=== PATIENT | male | born 1995 | race Caucasian/White ===

== ENCOUNTER 2016-12-21 19:26 | Emergency (ER) | payer OTHER ==
[2016-12-21] MEDS ORDERED: Ondansetron HCl/PF 4 MG/2 ML Vial ONE (19:43)
[2016-12-21 19:51] LABS: #Basophils 0.1 thou/uL (0.0-0.2); #Eosinphils 0.1 thou/uL (0.0-0.7); #Lymphocytes 3.4 thou/uL (1.20-3.40); #Neutrophils 11.8 thou/uL (1.40-6.50); %Basophils 0.8 % (0.0-1.0); %Eosinophils 0.6 % (0.0-10.0); %Lymphocytes 20.6 % (21.0-51.0); %Monocytes 5.8 % (0.0-10.0); Hematocrit 48.6 % (42.0-52.0); Red Blood Cell (RBC) Count 5.38 mill/uL (4.70-6.10); White Blood Cell (WBC) Count 16.3 thou/uL (4.8-10.8)
[2016-12-21 20:18] LABS: ALT (SGPT) 21 U/L (8-55); AST (SGOT) 27 U/L (5-34); Alkaline Phosphatase 108 U/L (40-150); Anion Gap 13 mmol/L (10-20); BUN (Urea Nitrogen) 13 mg/dL (8.9-20.6); Bilirubin, Total 0.5 mg/dL (0.2-1.2); CK (CPK) 50 U/L (30-200); Calc. Creatinine Clearance 0 mL/min (70-130); Calcium 8.7 mg/dL (7.8-10.44); Carbon Dioxide 16 mmol/L (22-29); Chloride 111 mmol/L (98-107); Estimated GFR-MDRD 84; Globulin 3.6 g/dL (2.4-3.5); Lipase 20 U/L (8-78); Protein, Total 7.6 g/dL (6.0-8.3)
--- NOTE | 2016-12-21 21:11 | CT ---
NONCONTRAST CT ABDOMEN AND PELVIS 12/21/16 HISTORY: Left flank pain with nausea and vomiting. Onset of symptoms for 45 minutes prior to arrival. History of renal stones. COMPARISON: 10/16/16 FINDINGS: There are nonobstructing bilateral renal calculi. The largest calculus in the inferior pole left kid chris measures 14 mm with largest calculus in the inferior pole right kidney measures approximately 6 mm. There are two separate calculi seen in the proximal left ureter each measuring approximately 5 m m. This does result in mild left hydronephrosis. No additional ureteral calculus is seen. The urinary bladder is incompletely distended. However, the previously noted left UVJ calculus as we ll as urinary bladder calculi seen on the prior study are no longer seen, likely related to interval passage or treatment of these calculi. The heart is mildly enlarged. The lung bases, liver, spleen, pancreas, and bilateral adrenal glands demonstrate a grossly normal n onenhanced Ct appearance. There is a moderate amount of retained fecal material seen within the sigmoid colon and in the rectu m. No pericolonic inflammatory changes are present. The appendix is not visualized, but there are no secondary signs to suggest appendicitis. There has been no other interval change from prior exam. IMPRESSION: 1. Partially obstructing left ureteral calculi with two separate calculi present, each measurin g approximately 5 mm. 2. Nonobstructing bilateral renal calculi. 3. Resolution of the left UVJ calculus and urinary bladder calculi noted on the prior exam. 4. Moderate amount of retained fecal material in the sigmoid colon. POS: [facility]
[2016-12-21 21:45] LABS: Bilirubin Negative (Negative); Blood, Urine Large (Negative); Glucose, Urine (Dipstick) Negative (Negative); Ketone, Urine Negative (Negative); Nitrite Negative (Negative); Protein, Urine (Dipstick) Trace mg/dL (Neg-Trace); Urobilinogen 0.2 mg/dL (0.2-1.0)
[2016-12-21 22:01] LABS: Bacteria/HPF None Seen HPF (None Seen); Hyaline Casts/LPF 0-3 HYALINE CAST LPF (0-3 Hyaline); RBC/HPF GREATER THAN 50-TNTC HPF (0-3); Squamous Epithelial 0-3 HPF (0-3); WBC/HPF 0-3 HPF (0-3)
--- NOTE | 2016-12-21 22:41 | RAD ---
AP ABDOMINAL RADIOGRAPH 12/21/16 HISTORY: Abdominal pain. COMPARISON: 05/14/16 FINDINGS: Calcifications are faintly visualized overlying the renal shadows bilaterally suggesting bilateral r enal calculi noted on recent CT scan examination. There are calcifications also seen adjacent to the L3 vertebral body on the left which likely represent the ureteral calculi seen on the recent CT sca n abdomen. Bowel gas pattern is nonspecific. Osseous structures are intact. IMPRESSION: 1. Bilateral nephrolithiasis. 2. Faint calcifications adjacent to the left aspect of the L3 vertebral body which likely repre sent the ureteral calculi seen on CT examination performed just prior to this exam. POS: [facility]
== END 2016-12-21 22:31 | disposition home or self-care (01) ==
LOC: ERS 19:26
DX: N13.2 Hydronephrosis with renal and ureteral calculous obstruction (principal); E86.0 Dehydration; I10 Essential (primary) hypertension; F31.9 Bipolar disorder, unspecified; F42.9 Obsessive-compulsive disorder, unspecified; Z79.891 Long term (current) use of opiate analgesic; Z79.899 Other long term (current) drug therapy
CPT/HCPCS: 51701; 74000; 74176; 80053; 81003; 81015; 82550; 83690; 85025; 96361; 96374; 96375; J2270; J2405

== ENCOUNTER 2016-12-22 09:45 | Day surgery (SDC) | payer OTHER ==
[2016-12-22] MEDS ORDERED: Ondansetron HCl/PF 4 MG/2 ML Vial ONE ×2 (10:26→15:41)
[2016-12-22 10:37] LABS: Hematocrit 47.5 % (42.0-52.0); Mean Platelet Volume 6.8 fL (7.4-10.4); Red Blood Cell (RBC) Count 5.26 mill/uL (4.70-6.10); White Blood Cell (WBC) Count 21.4 thou/uL (4.8-10.8)
[2016-12-22 10:53] LABS: Anion Gap 12 mmol/L (10-20); BUN (Urea Nitrogen) 13 mg/dL (8.9-20.6); Calc. Creatinine Clearance 0 mL/min (70-130); Calcium 8.6 mg/dL (7.8-10.44); Carbon Dioxide 15 mmol/L (22-29); Chloride 111 mmol/L (98-107); Estimated GFR-MDRD 63
[2016-12-22 10:58] LABS: Band 4 % (5-11); Neutrophil 89 % (42-75)
[2016-12-22] MEDS ORDERED: Fentanyl 100 MCG/2 ML VIAL ONE (14:39)
[2016-12-22] MEDS ORDERED: Midazolam HCl 2 mg/2 ml Vial ONE (14:39)
[2016-12-22] MEDS ORDERED: Iothalamate Meglumine 60% 50 ML VIAL FS ONE (14:41)
[2016-12-22] MEDS ORDERED: Lidocaine 1% PF 5 ML VIAL ONE (15:41)
[2016-12-22] MEDS ORDERED: Propofol 200 MG/20 ML VIAL ONE (15:41)
[2016-12-22] MEDS ORDERED: Succinylcholine Chloride 20 MG/ML 10 ml SYRINGE FS ONE (15:41)
--- NOTE | 2016-12-22 17:33 | RAD ---
RETROGRADE IVP: 12/22/16 COMPARISON: 10/27/[address] of the abdomen/pelvis 12/21/16. HISTORY: Bilateral nephrolithiasis. FINDINGS/IMPRESSION: Multiple limited intraoperative fluoroscopic views from an retrograde IVP were submitted for interpr etation. The initial image may show calcification in the region of the proximal aspect of the left u reter. Contrast is eventually placed without obvious filling defect. There is mild left hydronephro sis. Eventually, a double-J stent is seen in good position in the left renal collecting system. POS: [facility]
--- NOTE | 2016-12-23 00:54 | OP ---
DATE OF SURGERY: 12/22/2016 PREOPERATIVE DIAGNOSIS: Left ureteral stones and colic. POSTOPERATIVE DIAGNOSIS: Left ureteral stones and colic. PROCEDURE PERFORMED: Cystoscopy, left retrograde, left stent. SURGEON: Francisco Mitchell M.D. ANESTHESIA: General. ESTIMATED BLOOD LOSS: Minimal. FINDINGS: There was at least 1 proximal ureteral stone on CT, it looked like there was two, but I c ould only really see one on the fluoroscopy unit, it was very tight, guidewire would go by it easily the 5-[place] open-ended catheter went around it with some difficulty in it and contrast injected ju st below, did not go above it and had a good hydronephrotic drip after the stent was placed. OPERATIVE TECHNIQUE: After obtaining written and verbal consent from the patient after receiving IV Ancef, he was taken to the operating suite. He was placed in the supine position on the treatment table. PlexiPulses were placed on his lower extremities and turned on. He was given a general anes thetic and oral intubation. He was placed in the dorsal lithotomy position and sterilely prepped an d draped. Cystoscopy was initially performed with a 17-[place] sheath. This was passed, well lubric ated through the male urethra and into the urinary bladder with aid of a 30-degree lens and video ca marci and monitor. The bladder was drained and filled and emptied a number of times. A 0.038 guidew claire was fed through this and up into the left ureter and was able to manipulate by the proximal ston e which we could see faintly on his fluoroscopy unit. The instruments then removed and we backloade d the guidewire through the 20-[place]icar[place] sheath, which was our next smaller sheath with the aid of an o pen-ended catheter and advanced this under direct vision and well lubricated through the male urethr a into the urinary bladder. The open-ended catheter was advanced up to just distal to the stone and the wire was removed. Contrast was injected in a retrograde manner would not go by the stone. We then fed the guidewire passed the stone and then we were able to manipulate the open-ended catheter by this up in the renal pelvis, removed the guidewire and injected contrast showing a dilated system with a filling defect in the lower pole, which were consistent the stone he has as well as dilatati on down to the level of the proximal stone. The guidewire was replaced the open-ended catheter. Th e open-ended catheter was removed, and the stent was placed over the guidewire pushed up into place with aid of a pusher so its proximal end coiled in the renal pelvis and its distal end coiled in the bladder when the wire was removed. At this point, the bladder was drained, the instruments were re moved. The patient was awakened, extubated, and taken by stretcher to the recovery room.
== END 2016-12-22 17:38 | disposition home or self-care (01) ==
LOC: ERS 09:45 → SDC 12:39
PROVIDERS: ATTEND Urology
PROC: 0T778DZ Dilation of Left Ureter with Intraluminal Device, Via Natural or Artificial Opening Endoscopic (ICD-10-PCS; principal; 2016-12-22)
DX: N20.1 Calculus of ureter (principal); F31.9 Bipolar disorder, unspecified; F17.210 Nicotine dependence, cigarettes, uncomplicated; F90.9 Attention-deficit hyperactivity disorder, unspecified type; G93.2 Benign intracranial hypertension; K21.9 Gastro-esophageal reflux disease without esophagitis; Z91.030 Bee allergy status; Z90.89 Acquired absence of other organs; Z98.818 Other dental procedure status; Z98.890 Other specified postprocedural states
CPT/HCPCS: 36415; 74420; 80048; 85025; 96361; 96374; 96375; C1758; J2001; J2250; J2270; J2405; J2704; J3010; Q9961

== ENCOUNTER 2016-12-23 18:50 | Emergency (ER) | payer OTHER ==
[2016-12-23 19:52] LABS: #Basophils 0.1 thou/uL (0.0-0.2); #Eosinphils 0.1 thou/uL (0.0-0.7); #Lymphocytes 2.7 thou/uL (1.20-3.40); #Monocytes 1.3 thou/uL (0.11-0.59); #Neutrophils 9.3 thou/uL (1.40-6.50); %Basophils 0.8 % (0.0-1.0); %Eosinophils 0.6 % (0.0-10.0); %Lymphocytes 20.1 % (21.0-51.0); %Monocytes 9.9 % (0.0-10.0); Hematocrit 46.6 % (42.0-52.0); Mean Platelet Volume 7.1 fL (7.4-10.4); Red Blood Cell (RBC) Count 5.17 mill/uL (4.70-6.10); White Blood Cell (WBC) Count 13.5 thou/uL (4.8-10.8)
[2016-12-23] MEDS ORDERED: Ketorolac Tromethamine 30 MG/ML VIAL ONE (20:13)
[2016-12-23 20:14] LABS: ALT (SGPT) 17 U/L (8-55); AST (SGOT) 18 U/L (5-34); Alkaline Phosphatase 93 U/L (40-150); Anion Gap 13 mmol/L (10-20); BUN (Urea Nitrogen) 11 mg/dL (8.9-20.6); Bilirubin, Total 0.7 mg/dL (0.2-1.2); Calc. Creatinine Clearance 0 mL/min (70-130); Calcium 9.3 mg/dL (7.8-10.44); Carbon Dioxide 20 mmol/L (22-29); Chloride 111 mmol/L (98-107); Estimated GFR-MDRD 76; Globulin 3.4 g/dL (2.4-3.5); Protein, Total 7.3 g/dL (6.0-8.3)
--- NOTE | 2016-12-23 20:36 | CT ---
CT ABDOMEN AND PELVIS WITHOUT IV CONTRAST: 12/23/16 HISTORY: Right flank pain, left ureteral stent in place. COMPARISON: 12/21/16. FINDINGS: There is mild right hydronephrosis with three separate proximal right ureteral calculi noted. Most p roximal calculus measuring 4 mm with second calculus measuring 6 to 7 mm and the calculus approximat colleen 1.2 cm distal to this calculus measuring approximately 3 mm. There is a punctate nonobstructing right renal calculus. The previously seen nonobstructing left sarah al calculi are again seen and unchanged. A left ureteral stent is now noted in place. Previously see n calculus in the proximal left ureter is not visualized on this exam. There is no left hydronephros is present. There is minimal right perinephric and periureteral inflammatory stranding present. Focus of gas is seen in the urinary bladder and in the left renal collecting system likely related t o the recent left ureteral stent placement. There is minimal dependent bibasilar atelectasis. Stable less than 4 mm pulmonary nodule in the righ t middle lobe is again noted. Tiny pleural based nodular density at the right lung base is also stab le. These tiny nodular densities are also stable compared to a study on 04/15/14. The liver, spleen, pancreas, and bilateral adrenal glands demonstrate a grossly normal nonenhanced C T appearance. Moderate amount of retained fecal material seen in the colon suggesting an element of constipation. There has been no interval change from the prior study. Mild subcutaneous edema is seen in the right lateral flank. This is present on the prior exam as well. IMPRESSION: 1. Partially obstructing right ureteral calculi. There are three separate calculi within the pr oximal right ureter. 2. Nonobstructing bilateral renal calculi. 3. Interval placement of a left ureteral stent. 4. Constipation. 5. Above findings were discussed with Dr. Perez in the Emergency Department on 12/23/16 at 20 14 hours. POS: [facility]
== END 2016-12-23 21:51 | disposition home or self-care (01) ==
LOC: ERS 18:50
DX: N13.9 Obstructive and reflux uropathy, unspecified (principal); I10 Essential (primary) hypertension; F31.9 Bipolar disorder, unspecified; F42.9 Obsessive-compulsive disorder, unspecified; F95.2 Tourette's disorder; Z79.891 Long term (current) use of opiate analgesic; Z79.899 Other long term (current) drug therapy
CPT/HCPCS: 74176; 80053; 85025; 96361; 96374; J1885

== ENCOUNTER 2017-01-06 21:33 | Emergency (ER) | payer OTHER | END 2017-01-06 21:53 | disposition left against medical advice (07) | LOC: ERS 21:33 | DX: Z53.21 Procedure and treatment not carried out due to patient leaving prior to being seen by health care provider (principal) ==

== ENCOUNTER 2017-01-16 00:24 | Emergency (ER) | payer OTHER | END 2017-01-16 00:54 | disposition left against medical advice (07) | LOC: ERS 00:24 | DX: Z53.21 Procedure and treatment not carried out due to patient leaving prior to being seen by health care provider (principal) ==

== ENCOUNTER 2017-03-10 02:42 | Emergency (ER) | payer OTHER ==
[2017-03-10 04:02] LABS: #Basophils 0.1 thou/uL (0.0-0.2); #Eosinphils 0.2 thou/uL (0.0-0.7); #Lymphocytes 2.5 thou/uL (1.20-3.40); #Monocytes 1.1 thou/uL (0.11-0.59); #Neutrophils 9.6 thou/uL (1.40-6.50); %Basophils 0.5 % (0.0-1.0); %Eosinophils 1.2 % (0.0-10.0); %Lymphocytes 18.5 % (21.0-51.0); %Monocytes 8.4 % (0.0-10.0); Hematocrit 45.2 % (42.0-52.0); Mean Platelet Volume 6.9 fL (7.4-10.4); Red Blood Cell (RBC) Count 5.02 mill/uL (4.70-6.10); White Blood Cell (WBC) Count 13.4 thou/uL (4.8-10.8)
[2017-03-10 04:03] LABS: Bilirubin Negative (Negative); Blood, Urine Small (Negative); Glucose, Urine (Dipstick) Negative (Negative); Ketone, Urine Negative (Negative); Nitrite Negative (Negative); Protein, Urine (Dipstick) 30 mg/dL (Neg-Trace)
[2017-03-10 04:05] LABS: Bacteria/HPF None Seen HPF (None Seen); Hyaline Casts/LPF 7-10 HYALINE CAST LPF (0-3 Hyaline); RBC/HPF 0-3 HPF (0-3)
[2017-03-10 04:20] LABS: Oval Fat Bodies/HPF None Seen HPF (None Seen); Renal Epithelial None Seen HPF (0-3); Sperm/HPF None Seen HPF (None Seen); Transitional Epithelial NONE SEEN HPF (0-3); Trichomonas/HPF None Seen HPF (None Seen); Yeast-All Forms None Seen HPF (None Seen)
[2017-03-10 04:21] LABS: ALT (SGPT) 20 U/L (8-55); AST (SGOT) 23 U/L (5-34); Alkaline Phosphatase 101 U/L (40-150); Anion Gap 13 mmol/L (10-20); BUN (Urea Nitrogen) 15 mg/dL (8.9-20.6); Bilirubin, Total 0.4 mg/dL (0.2-1.2); Calc. Creatinine Clearance 0 mL/min (70-130); Calcium 9.1 mg/dL (7.8-10.44); Carbon Dioxide 19 mmol/L (22-29); Chloride 111 mmol/L (98-107); Estimated GFR-MDRD 80; Globulin 3.6 g/dL (2.4-3.5); Protein, Total 7.6 g/dL (6.0-8.3)
--- NOTE | 2017-03-10 07:44 | CT ---
PRELIMINARY REPORT/[facility]/EMERGENCY AFTER HOURS PROCEDURE: EXAM: CT Abdomen and Pelvis Without Intravenous Contrast CLINICAL HISTORY: 21 years old, male; Pain; Abdominal pain; Generalized; Patient HX: R/O stone TECHNIQUE: Axial computed tomography images of the abdomen and pelvis without intravenous contrast. Coronal reformatted images were created and reviewed. COMPARISON: No relevant prior studies available. FINDINGS: The lung bases are clear. Right kidney: Several right intrarenal calculi. No hydronephrosis or visible mass. No hydroureter or visible ureteral calculus. Left kidney: Several left intrarenal calculi. Mild left hydronephrosis and hydroureter. There are numerous left ureteral calculi. 3 mm proximal calculus near the UPJ. One or 2 adjacent calc benjamín in the proximal ureter, measuring up to 5-6 mm. 2 or 3 adjacent calculi in the distal ureter, abo ut 2 cm From the UVJ. These calculi measure up to 4-5 mm in transverse diameter. No definite gallbladder abnormality by CT. No biliary tree dilation. Unremarkable appearance of the liver, spleen, adrenal glands, and pancreas. No free air, ascites, or bowel distention. No evidence for abdominal aortic aneurysm. No retroperitoneal adenopathy. CT pelvis: There appear to be 2 or 3 small calculi within the urinary bladder. Mild to moderate diffuse urinary bladder wall thickening. While nonspecific, this could indicate evidence for cystitis. Please correlate clinically. The appendix is visualized and appears normal. There are no CT findings to strongly suggest diverticulitis. No abnormal mass or fluid collection in the pelvis. IMPRESSION: Numerous left ureteral calculi, see above discussion. Mild left hydronephrosis and hydroureter. Bilateral intrarenal calculi. Calculi within the urinary bladder. Mild to moderate urinary bladder wall thickening, see above. No free air or bowel distention. Normal appendix. Other findings discussed above. Thank you for allowing us to participate in the care of your patient. Dictated and Authenticated by: Juan Diego Vieyra MD 03/10/2017 4:58 AM Central Time ([place] & [place]) FINAL REPORT CT ABDOMEN AND PELVIS WITHOUT CONTRAST: FINDINGS: There are at least three left ureteral calculi. The largest in the upper left ureter measuring approx imately 5-6 mm. There is mild left hydronephrosis. There are bilateral intrarenal nonobstructing calc benjamín. There are small calculi seen within the urinary bladder. These findings were all described on the preliminary report. I am in agreement with the preliminary r eport. Code QA POS: [facility]
== END 2017-03-10 05:25 | disposition home or self-care (01) ==
LOC: ERS 02:42
DX: N13.2 Hydronephrosis with renal and ureteral calculous obstruction (principal); I10 Essential (primary) hypertension; F31.9 Bipolar disorder, unspecified; F90.9 Attention-deficit hyperactivity disorder, unspecified type; F91.3 Oppositional defiant disorder; Z79.899 Other long term (current) drug therapy
CPT/HCPCS: 74176; 80053; 81003; 81015; 85025

== ENCOUNTER 2017-03-15 01:00 | Outpatient (CLI) | payer OTHER | END 2017-03-15 01:01 | disposition home or self-care (01) | LOC: BICRAD 01:00 | PROVIDERS: ATTEND Urology | DX: N20.2 Calculus of kidney with calculus of ureter (principal) | CPT/HCPCS: 74000 ==

== ENCOUNTER 2017-03-19 05:17 | Emergency (ER) | payer OTHER ==
[2017-03-19 06:17] LABS: Bilirubin Negative (Negative); Blood, Urine Moderate (Negative); Glucose, Urine (Dipstick) Negative (Negative); Ketone, Urine Negative (Negative); Nitrite Negative (Negative); Protein, Urine (Dipstick) Negative (Neg-Trace); Urobilinogen 0.2 mg/dL (0.2-1.0)
[2017-03-19 06:20] LABS: Bacteria/HPF None Seen HPF (None Seen); Hyaline Casts/LPF 0-3 HYALINE CAST LPF (0-3 Hyaline); RBC/HPF 21-50 HPF (0-3); Squamous Epithelial 0-3 HPF (0-3); WBC/HPF 0-3 HPF (0-3)
== END 2017-03-19 05:52 | disposition left against medical advice (07) ==
LOC: ERS 05:17
DX: Z53.21 Procedure and treatment not carried out due to patient leaving prior to being seen by health care provider (principal)
CPT/HCPCS: 81003; 81015

== ENCOUNTER 2017-03-25 06:57 | Emergency (ER) | payer OTHER ==
[2017-03-25] MEDS ORDERED: Ondansetron HCl/PF 4 MG/2 ML Vial ONE (07:18)
[2017-03-25 07:33] LABS: #Eosinphils 0.1 thou/uL (0.0-0.7); #Lymphocytes 2.3 thou/uL (1.20-3.40); #Monocytes 1.5 thou/uL (0.11-0.59); #Neutrophils 12.7 thou/uL (1.40-6.50); %Basophils 0.2 % (0.0-1.0); %Eosinophils 0.6 % (0.0-10.0); %Lymphocytes 13.6 % (21.0-51.0); %Monocytes 8.9 % (0.0-10.0); %Neutrophils 76.7 % (42.0-75.0); Mean Corpuscular HGB CONC 32.9 g/dL (32.0-36.0); Mean Corpuscular Hemoglobin 29.4 pg (27.0-31.0); Mean Corpuscular Volume 89.5 fl (80.0-94.0); Platelet Count 308 thou/uL (130-400); RBC Distribution Width 13.3 % (11.5-14.5); Red Blood Cell (RBC) Count 5.09 mill/uL (4.70-6.10); White Blood Cell (WBC) Count 16.5 thou/uL (4.8-10.8)
[2017-03-25 07:48] LABS: ALT (SGPT) 25 U/L (8-55); AST (SGOT) 19 U/L (5-34); Albumin 3.9 g/dL (3.5-5.0); Alkaline Phosphatase 91 U/L (40-150); Anion Gap 12 mmol/L (10-20); BUN (Urea Nitrogen) 14 mg/dL (8.9-20.6); Bilirubin, Total 0.8 mg/dL (0.2-1.2); Calc. Creatinine Clearance 0 mL/min (70-130); Calcium 9.1 mg/dL (7.8-10.44); Carbon Dioxide 17 mmol/L (22-29); Chloride 115 mmol/L (98-107); Estimated GFR-MDRD 73; Globulin 2.8 g/dL (2.4-3.5); Glucose 102 mg/dL (70-105); Potassium 3.2 mmol/L (3.5-5.1); Protein, Total 6.7 g/dL (6.0-8.3); Sodium 141 mmol/L (136-145)
[2017-03-25 09:28] LABS: Bilirubin Negative (Negative); Blood, Urine Negative (Negative); Clarity TURBID (Clear); Glucose, Urine (Dipstick) Negative (Negative); Leukocyte Small (Negative); Nitrite Negative (Negative); Protein, Urine (Dipstick) Negative (Neg-Trace); Specific Gravity, Urine 1.025 (1.002-1.036); Urobilinogen 0.2 mg/dL (0.2-1.0); pH, Urine 6.5 (5.0-9.0)
[2017-03-25 09:31] LABS: Bacteria/HPF None Seen HPF (None Seen)
[2017-03-25 09:44] LABS: RBC/HPF 0-3 HPF (0-3)
[2017-03-25 10:05] LABS: Crystals/HPF 1+ CA PHOS HPF (Negative)
[2017-03-25 10:06] LABS: Hyaline Casts/LPF 0-3 HYALINE CAST LPF (0-3 Hyaline)
--- NOTE | 2017-03-25 10:13 | CT ---
CT ABDOMEN AND PELVIS WITHOUT CONTRAST: HISTORY: Left flank pain and vomiting. Kidney stones. COMPARISON: 03/10/2017 FINDINGS: Absence of oral and IV contrast reduces the sensitivity of the exam, particular for evaluation of josh id organs involved. The lung bases are clear. No free air or free fluid is seen in the abdomen or pelvis. A normal appe aring appendix is seen. There is fecal material in the colon. Multiple bilateral intrarenal calculi are again seen. There is continued left hydroureteronephrosis secondary to 3 calculi in the left ur eter, at the L3 and L4 levels. The proximal most calculus in the left ureter, noted on the previous exam, has moved distally, closer to the other two calculi. The largest calculus in the left ureter m easures about 6 mm. The previously noted tiny calculi in the urinary bladder are no longer seen. No right-sided hydroureteronephrosis is identified. IMPRESSION: 1. Obstructing left ureteric calculi at the L3 and L4 levels. 2. Bilateral intrarenal calculi. POS: [facility]
== END 2017-03-25 10:10 | disposition home or self-care (01) ==
LOC: ERS 06:57
DX: N13.2 Hydronephrosis with renal and ureteral calculous obstruction (principal); F41.9 Anxiety disorder, unspecified; F31.9 Bipolar disorder, unspecified; F17.210 Nicotine dependence, cigarettes, uncomplicated; Z79.899 Other long term (current) drug therapy
CPT/HCPCS: 36415; 74176; 80053; 81003; 81015; 85025; 87086; 96361; 96374; J2405

== ENCOUNTER 2017-03-29 14:44 | Outpatient (CLI) | payer OTHER | END 2017-03-29 14:45 | disposition home or self-care (01) | LOC: BICRAD 14:44 | PROVIDERS: ATTEND Urology | DX: N20.0 Calculus of kidney (principal) | CPT/HCPCS: 74018 ==

== ENCOUNTER 2017-04-06 06:02 | Day surgery (SDC) | payer OTHER ==
[2017-04-05 12:59] VITALS: BMI 41.9
[2017-04-06 06:49] LABS: #Eosinphils 0.2 thou/uL (0.0-0.7); #Lymphocytes 3.6 thou/uL (1.20-3.40); #Monocytes 0.8 thou/uL (0.11-0.59); %Basophils 0.5 % (0.0-1.0); %Eosinophils 1.8 % (0.0-10.0); %Lymphocytes 37.5 % (21.0-51.0); %Monocytes 8.2 % (0.0-10.0); Hemoglobin 14.7 g/dL (14.0-18.0); Mean Corpuscular HGB CONC 32.1 g/dL (32.0-36.0); Mean Corpuscular Volume 90.2 fl (80.0-94.0); Platelet Count 289 thou/uL (130-400); RBC Distribution Width 13.3 % (11.5-14.5); Red Blood Cell (RBC) Count 5.06 mill/uL (4.70-6.10); White Blood Cell (WBC) Count 9.5 thou/uL (4.8-10.8)
[2017-04-06 06:53] LABS: Platelet Count 289 thou/uL (130-400)
[2017-04-06 07:08] LABS: Anion Gap 11 mmol/L (10-20); BUN (Urea Nitrogen) 15 mg/dL (8.9-20.6); Calc. Creatinine Clearance 199 mL/min (70-130); Calcium 8.6 mg/dL (7.8-10.44); Carbon Dioxide 18 mmol/L (22-29); Chloride 115 mmol/L (98-107); Estimated GFR-MDRD Greater than 90; Glucose 99 mg/dL (70-105); Potassium 3.5 mmol/L (3.5-5.1); Sodium 140 mmol/L (136-145)
[2017-04-06 07:12] LABS: PTT 36.5 SEC (22.9-36.1)
[2017-04-06] MEDS ORDERED: Fentanyl 100 MCG/2 ML VIAL ONE (07:25)
[2017-04-06] MEDS ORDERED: Midazolam HCl 2 mg/2 ml Vial ONE ×2 (07:25→07:27)
--- NOTE | 2017-04-06 07:34 | RAD ---
KUB: DATE: 04/06/17. COMPARISON: 12/21/16. HISTORY: Preoperative patient, EWSL. FINDINGS: The imaging of the upper abdomen is limited secondary to patient motion artifact. There is a vague c alcification in the right upper quadrant inferior to the right 12th rib measuring approximately 8 mm in craniocaudal dimension, which may be related to renal stone disease. There is a vague calcific de nsity overlying the L3 transverse process on the left measuring in the 6 mm range, which may be relat ed to ureteral stone disease. Vague increased density inferior to 12th rib on left may represent add itional renal stone disease. No significant pelvic calcification. IMPRESSION: Motion-limited examination demonstrating findings suggesting bilateral intrarenal calculi and possibl e calculus along the course of the left ureter. POS: [facility]
[2017-04-06] MEDS ORDERED: Propofol 200 MG/20 ML VIAL ONE (13:33)
[2017-04-06] MEDS ORDERED: Lidocaine 1% PF 5 ML VIAL ONE (13:33)
--- NOTE | 2017-04-06 14:35 | OP ---
DATE OF PROCEDURE: 04/06/2017 PREOPERATIVE DIAGNOSES: Bilateral renal stones, left ureteral stone. POSTOPERATIVE DIAGNOSES: Bilateral renal stones, left ureteral stone. PROCEDURE PERFORMED: Left ureteral ESWL and left renal ESWL. We do not treat the right side. Initially, we were planning to treat him on the right side. As in t he office, his right renal stone was easily visualized and he had had left ureteral stone that he tho ught he had passed as his pain went away; however, on the KUB that was obtained today, he had probabl y 2-3 stones in the proximal left ureter measuring in total about 7 mm stones. He could also see in the lower pole, an incision was made to look at treating these rather than treating the right side. OPERATIVE TECHNIQUE: After obtaining written and verbal consent from the patient, after documenting normal preoperative blood work and platelet function assay, he was taken to the operating suite. He was placed in the supine position on the treatment table. PlexiPulses were placed on his lower extre mities and turned on. He was given a general anesthetic, oral obturator intubation. He was in the lithotriptor unit. The stones in the ureter were placed in the treatment focal point and shockw ave therapy was commenced. Pause was not given for these ureteral stones. We went up slowly to leve l 6, treated with 3500 shocks. At this point, he was repositioned, so the stones in the lower pole w ere brought in the treatment focal point. We backed off on her kV to a much lower kV. We gave a margaret se after couple 100 shocks and then treated at a maximum kV of 5 for a total of 2500 shocks, these ap pear to fragment well. No stent was placed. At the end of the procedure, he was awakened, extubated , and taken by stretcher to the recovery room.
== END 2017-04-06 12:15 | disposition home or self-care (01) ==
LOC: SDC 06:02
PROVIDERS: ATTEND Urology
PROC: 0TF7XZZ Fragmentation in Left Ureter, External Approach (ICD-10-PCS; principal; 2017-04-06)
PROC: 0TF4XZZ Fragmentation in Left Kidney Pelvis, External Approach (ICD-10-PCS; principal; 2017-04-06)
DX: N20.2 Calculus of kidney with calculus of ureter (principal); G93.2 Benign intracranial hypertension; F31.9 Bipolar disorder, unspecified; F90.9 Attention-deficit hyperactivity disorder, unspecified type; K21.9 Gastro-esophageal reflux disease without esophagitis; F17.210 Nicotine dependence, cigarettes, uncomplicated; Z79.899 Other long term (current) drug therapy; Z91.030 Bee allergy status; Z96.0 Presence of urogenital implants; Z90.89 Acquired absence of other organs; Z98.818 Other dental procedure status; Z98.890 Other specified postprocedural states; Z87.442 Personal history of urinary calculi
CPT/HCPCS: 36415; 74018; 80048; 85025; 85576; 85610; 85730; J2001; J2250; J2704; J3010

== ENCOUNTER → 2017-04-15 | Outpatient (CLI) | payer OTHER | LOC: BICRAD 13:00 | PROVIDERS: ATTEND Urology | DX: N20.0 Calculus of kidney (principal) | CPT/HCPCS: 74018 ==

== ENCOUNTER 2017-04-16 07:01 | Emergency (ER) | payer OTHER ==
--- NOTE | 2017-04-16 07:37 | RAD ---
TWO VIEWS OF THE CHEST: COMPARISON: None. HISTORY: Cough. FINDINGS: Two views of the chest show normal sized cardiomediastinal silhouette. There is no evidence of consol idation, mass, or pleural effusion. The bones are unremarkable. IMPRESSION: No evidence of acute cardiopulmonary disease. POS: [facility]
[2017-04-16] MEDS ORDERED: Lidocaine Viscous Sol 2% 15 ml UD Cup ONE (08:22)
[2017-04-16] MEDS ORDERED: Mag-Al 1200 mg/1200 mg/30 ML UDCUP ONE (08:22)
== END 2017-04-16 08:28 | disposition home or self-care (01) ==
LOC: ERS 07:01
DX: R05 Cough (principal); K21.9 Gastro-esophageal reflux disease without esophagitis; F41.9 Anxiety disorder, unspecified; F31.9 Bipolar disorder, unspecified; F17.210 Nicotine dependence, cigarettes, uncomplicated
CPT/HCPCS: 71046

== ENCOUNTER 2017-04-20 09:18 | Emergency (ER) | payer OTHER ==
[2017-04-20 10:08] LABS: Bilirubin Negative (Negative); Blood, Urine Moderate (Negative); Clarity CLOUDY (Clear); Glucose, Urine (Dipstick) Negative (Negative); Leukocyte Negative (Negative); Nitrite Negative (Negative); Protein, Urine (Dipstick) 30 mg/dL (Neg-Trace); Specific Gravity, Urine 1.022 (1.002-1.036); pH, Urine 6.5 (5.0-9.0)
[2017-04-20 10:10] LABS: Bacteria/HPF None Seen HPF (None Seen); Hyaline Casts/LPF 0-3 HYALINE CAST LPF (0-3 Hyaline); Pathc Cast-AUWi Flag 0.13 (0-2.49); RBC/HPF 21-50 HPF (0-3); Squamous Epithelial None Seen HPF (0-3); WBC/HPF 0-3 HPF (0-3)
[2017-04-20 10:21] LABS: Crystals/HPF None Seen HPF (Negative)
--- NOTE | 2017-04-20 10:28 | RAD ---
ABDOMEN ONE VIEW: History: Kidney stones. Comparison: 04-06-17 FINDINGS: There are multiple calculi in the left inferior left shadow and right ilial shadow. No definite calcu li are seen along the ureters. Moderate stool burden in the colon. IMPRESSION: Bilateral renal calculi. No definite calculus seen in the expected location of the ureters. POS: [facility]
[2017-04-20] MEDS ORDERED: Morphine 4 MG/ML Carpuject ONE (10:31)
== END 2017-04-20 12:16 | disposition home or self-care (01) ==
LOC: ERS 09:18
DX: R10.31 Right lower quadrant pain (principal); K21.9 Gastro-esophageal reflux disease without esophagitis; F41.9 Anxiety disorder, unspecified; F31.9 Bipolar disorder, unspecified; F17.210 Nicotine dependence, cigarettes, uncomplicated; Z79.899 Other long term (current) drug therapy
CPT/HCPCS: 74018; 81003; 81015; 96361; 96374; J2270

== ENCOUNTER 2017-04-27 06:03 | Day surgery (SDC) | payer OTHER ==
[2017-04-26 10:14] VITALS: BMI 43.9
[2017-04-27] MEDS ORDERED: Iothalamate Meglumine 60% 50 ML VIAL FS ONE (06:36)
[2017-04-27 06:47] LABS: #Basophils 0.1 thou/uL (0.0-0.2); #Eosinphils 0.2 thou/uL (0.0-0.7); #Lymphocytes 3.1 thou/uL (1.20-3.40); #Monocytes 0.9 thou/uL (0.11-0.59); #Neutrophils 4.7 thou/uL (1.40-6.50); %Basophils 1.3 % (0.0-1.0); %Eosinophils 2.2 % (0.0-10.0); %Lymphocytes 34.5 % (21.0-51.0); %Monocytes 9.6 % (0.0-10.0); %Neutrophils 52.4 % (42.0-75.0); Hemoglobin 14.7 g/dL (14.0-18.0); Mean Corpuscular HGB CONC 32.7 g/dL (32.0-36.0); Mean Corpuscular Hemoglobin 29.1 pg (27.0-31.0); Mean Corpuscular Volume 88.9 fl (80.0-94.0); Mean Platelet Volume 7.1 fL (7.4-10.4); Platelet Count 314 thou/uL (130-400); RBC Distribution Width 13.2 % (11.5-14.5); Red Blood Cell (RBC) Count 5.07 mill/uL (4.70-6.10)
[2017-04-27] MEDS ORDERED: Fentanyl 100 MCG/2 ML VIAL ONE (07:01)
[2017-04-27 07:02] LABS: Anion Gap 11 mmol/L (10-20); BUN (Urea Nitrogen) 14 mg/dL (8.9-20.6); Calc. Creatinine Clearance 207 mL/min (70-130); Calcium 8.7 mg/dL (7.8-10.44); Carbon Dioxide 19 mmol/L (22-29); Chloride 114 mmol/L (98-107); Estimated GFR-MDRD Greater than 90; Glucose 97 mg/dL (70-105); Potassium 3.6 mmol/L (3.5-5.1); Sodium 140 mmol/L (136-145)
[2017-04-27] MEDS ORDERED: Midazolam HCl 2 mg/2 ml Vial ONE (07:33)
--- NOTE | 2017-04-27 07:41 | RAD ---
ABDOMEN ONE VIEW: History: Renal stones. Comparison: 04-20-17 FINDINGS/IMPRESSION: Gas and stool throughout the colon predominately obscure the renal outlines. The largest calcificatio n from the previous exam projecting over the right renal pelvis is faintly seen. Calcification over t he inferior pole of the right renal shadow is also apparent on one of the views. Left renal calcifica tions are obscured. POS: [facility]
--- NOTE | 2017-04-27 09:00 | OP ---
DATE OF PROCEDURE: 04/27/2017 PREOPERATIVE DIAGNOSIS: Right renal stones. POSTOPERATIVE DIAGNOSIS: Right renal stones. PROCEDURE PERFORMED: Right ESWL. SURGEON: Dr. Francisco Mitchell ANESTHETIC: General. ESTIMATED BLOOD LOSS: Not recorded. FINDINGS: There is a 10 mm right renal pelvic/mid pole and a 6 mm upper pole that were treated with 1200 and 1300 shocks combined, no stent was placed. There was good fragmentation. OPERATIVE TECHNIQUE: After obtaining written and verbal consent from the patient, he was taken to [facility] operating suite. His preoperative blood work was normal. He was placed in the supine position on the treatment table. PlexiPulses placed on his lower extremities and turned on. He was given a gene ral anesthetic, oral obturator intubation. He was coupled with the lithotripter unit. The larger st one was placed in treatment focal point. Shockwave therapy was commenced and appeared to fragment ve ry well and after 1200 shocks, we repositioned and treated a second stone that was slightly smaller a nd a bit superior and lateral to it. There was one other area of stone that appears to be up under o ne of the ribs that we did not treat during this setting as we had given 2500 shocks. A stent was no t placed. The stone appeared to have fragmented well. At this point, the patient was awakened, extu bated, and taken by stretcher to the recovery room.
[2017-04-27] MEDS ORDERED: Dexamethasone 20 MG/5 ML VIAL ONE (15:15)
[2017-04-27] MEDS ORDERED: Lidocaine 1% PF 5 ML VIAL ONE (15:15)
[2017-04-27] MEDS ORDERED: Propofol 200 MG/20 ML VIAL ONE (15:15)
[2017-04-27] MEDS ORDERED: Ondansetron HCl/PF 4 MG/2 ML Vial ONE (15:15)
[2017-04-27] MEDS ORDERED: Ketorolac Tromethamine 30 MG/ML VIAL ONE (15:15)
== END 2017-04-27 09:52 | disposition home or self-care (01) ==
LOC: SDC 06:03
PROVIDERS: ATTEND Urology
PROC: 0TF3XZZ Fragmentation in Right Kidney Pelvis, External Approach (ICD-10-PCS; principal; 2017-04-27)
DX: N20.0 Calculus of kidney (principal); Z91.030 Bee allergy status; Z98.890 Other specified postprocedural states
CPT/HCPCS: 36415; 74018; 80048; 85025; J1100; J1885; J2001; J2250; J2405; J2704; J3010; Q9961

== ENCOUNTER 2017-05-05 05:31 | Emergency (ER) | payer OTHER ==
[2017-05-05 06:04] LABS: #Basophils 0.1 thou/uL (0.0-0.2); #Eosinphils 0.2 thou/uL (0.0-0.7); #Lymphocytes 3.2 thou/uL (1.20-3.40); #Monocytes 1.6 thou/uL (0.11-0.59); #Neutrophils 10.7 thou/uL (1.40-6.50); %Basophils 0.5 % (0.0-1.0); %Eosinophils 1.2 % (0.0-10.0); %Lymphocytes 20.3 % (21.0-51.0); %Neutrophils 68.1 % (42.0-75.0); Mean Corpuscular HGB CONC 32.4 g/dL (32.0-36.0); Mean Corpuscular Hemoglobin 28.9 pg (27.0-31.0); Mean Corpuscular Volume 89.1 fl (80.0-94.0); Mean Platelet Volume 7.2 fL (7.4-10.4); Platelet Count 319 thou/uL (130-400); RBC Distribution Width 13.6 % (11.5-14.5); Red Blood Cell (RBC) Count 5.19 mill/uL (4.70-6.10); White Blood Cell (WBC) Count 15.7 thou/uL (4.8-10.8)
[2017-05-05 06:12] LABS: ALT (SGPT) 23 U/L (8-55); AST (SGOT) 23 U/L (5-34); Alkaline Phosphatase 114 U/L (40-150); Anion Gap 16 mmol/L (10-20); BUN (Urea Nitrogen) 17 mg/dL (8.9-20.6); Bilirubin, Total 0.6 mg/dL (0.2-1.2); Calc. Creatinine Clearance 0 mL/min (70-130); Calcium 9.1 mg/dL (7.8-10.44); Carbon Dioxide 18 mmol/L (22-29); Chloride 111 mmol/L (98-107); Estimated GFR-MDRD 59; Globulin 3.7 g/dL (2.4-3.5); Glucose 115 mg/dL (70-105); Potassium 3.7 mmol/L (3.5-5.1); Protein, Total 7.7 g/dL (6.0-8.3); Sodium 141 mmol/L (136-145)
--- NOTE | 2017-05-05 08:08 | RAD ---
KUB: Date: 05/05/17 HISTORY: Kidney stone. FINDINGS/IMPRESSION: Comparison made with exam of 04/27/17. A calculus is seen in the projection of the inferior pole of the left kidney. The previously noted ri ght-sided renal calculi have been obscured by overlying bowel contents. There is a significant amount of fecal material in the colon. POS: [facility]
[2017-05-05 10:03] LABS: Bilirubin Negative (Negative); Blood, Urine Small (Negative); Clarity CLOUDY (Clear); Glucose, Urine (Dipstick) Negative (Negative); Leukocyte Negative (Negative); Nitrite Negative (Negative); Protein, Urine (Dipstick) Trace mg/dL (Neg-Trace)
[2017-05-05 10:06] LABS: Bacteria/HPF None Seen HPF (None Seen); Hyaline Casts/LPF 0-3 HYALINE CAST LPF (0-3 Hyaline); Pathc Cast-AUWi Flag 0.27 (0-2.49); RBC/HPF 21-50 HPF (0-3); Squamous Epithelial 0-3 HPF (0-3); WBC/HPF 0-3 HPF (0-3)
== END 2017-05-05 10:28 | disposition home or self-care (01) ==
LOC: ERS 05:31
DX: N20.0 Calculus of kidney (principal); K21.9 Gastro-esophageal reflux disease without esophagitis; F41.9 Anxiety disorder, unspecified; F31.9 Bipolar disorder, unspecified; F42.9 Obsessive-compulsive disorder, unspecified; F17.210 Nicotine dependence, cigarettes, uncomplicated; Z79.899 Other long term (current) drug therapy
CPT/HCPCS: 51701; 74018; 80053; 81003; 81015; 85025; 96361; 96374

== ENCOUNTER 2017-05-11 11:43 | Outpatient (CLI) | payer OTHER ==
--- NOTE | 2017-05-11 14:04 | RAD ---
ABDOMEN ONE VIEW: History: Abdomen pain. Stones. Comparison: 05-05-17 FINDINGS: Large amount of stool is apparent throughout the colon. Small bowel gas pattern is nonspecific. Renal outlines are partially obscured by bowel content. Irregular calcifications projecting over the inferior pole of the left renal shadow are similar in appearance to the prior study. IMPRESSION: 1. Left renal calculi. 2. Constipation. POS: [facility]
== END 2017-05-11 11:44 | disposition home or self-care (01) ==
LOC: RAD 11:43
PROVIDERS: ATTEND Urology
DX: N20.0 Calculus of kidney (principal); K59.00 Constipation, unspecified
CPT/HCPCS: 74018

== ENCOUNTER 2017-05-23 17:38 | Emergency (ER) | payer OTHER ==
[2017-05-23 18:32] LABS: #Basophils 0.1 thou/uL (0.0-0.2); #Eosinphils 0.1 thou/uL (0.0-0.7); #Lymphocytes 2.3 thou/uL (1.20-3.40); #Neutrophils 6.9 thou/uL (1.40-6.50); %Basophils 0.9 % (0.0-1.0); %Eosinophils 1.3 % (0.0-10.0); %Lymphocytes 22.4 % (21.0-51.0); %Monocytes 9.8 % (0.0-10.0); %Neutrophils 65.6 % (42.0-75.0); Hemoglobin 14.6 g/dL (14.0-18.0); Mean Corpuscular Hemoglobin 28.5 pg (27.0-31.0); Mean Corpuscular Volume 89.2 fl (80.0-94.0); Platelet Count 321 thou/uL (130-400); RBC Distribution Width 13.9 % (11.5-14.5); Red Blood Cell (RBC) Count 5.12 mill/uL (4.70-6.10); White Blood Cell (WBC) Count 10.4 thou/uL (4.8-10.8)
[2017-05-23 18:58] LABS: ALT (SGPT) 17 U/L (8-55); AST (SGOT) 15 U/L (5-34); Albumin 3.8 g/dL (3.5-5.0); Alkaline Phosphatase 95 U/L (40-150); Anion Gap 11 mmol/L (10-20); BUN (Urea Nitrogen) 17 mg/dL (8.9-20.6); Bilirubin, Total 0.6 mg/dL (0.2-1.2); Calc. Creatinine Clearance 0 mL/min (70-130); Calcium 8.8 mg/dL (7.8-10.44); Carbon Dioxide 17 mmol/L (22-29); Chloride 114 mmol/L (98-107); Estimated GFR-MDRD 81; Globulin 2.9 g/dL (2.4-3.5); Glucose 104 mg/dL (70-105); Potassium 3.4 mmol/L (3.5-5.1); Protein, Total 6.7 g/dL (6.0-8.3); Sodium 139 mmol/L (136-145)
--- NOTE | 2017-05-23 19:04 | CT ---
CT ABDOMEN AND PELVIS NONCONTRAST: History: Hematuria. Left flank pain. Comparison: 03-25-17 FINDINGS: There is mild distention of the left renal collecting system and proximal left ureter to two adjacent oval calcifications that are 0.4 and 0.3 cm transverse diameter on the axial images at the level of the L3 inferior endplate. The left ureter beyond this point and the right renal collecting system and ureter are decompressed. Tiny stones are present within the dependent portion of the urinary bladder . Multiple stones are present at the inferior pole of the left kidney with end calices. The calcificati ons overall measure up to 1.1 cm diameter, but this favored to represent multiple smaller calcificati ons. Multiple tiny calcifications are present at the inferior pole of the right kidney measuring up t o 0.7 cm, again likely representing multiple adjacent tiny calcifications. Lack of contrast limits evaluation for other abnormalities. A large amount of stool is apparent throu ghout the colon and rectum. IMPRESSION: 1. Partial compression at two adjacent proximal left ureteral calculi measuring up to 0.4 cm. 2. Additional bilateral renal calculi. Small urinary bladder calculi. 3. Constipation. POS: [facility]
[2017-05-23] MEDS ORDERED: Ondansetron HCl/PF 4 MG/2 ML Vial ONE ×2 (19:32→19:38)
[2017-05-23] MEDS ORDERED: Ketorolac Tromethamine 30 MG/ML VIAL ONE (19:32)
[2017-05-23 19:38] LABS: Bilirubin Negative (Negative); Blood, Urine Small (Negative); Clarity CLOUDY (Clear); Glucose, Urine (Dipstick) Negative (Negative); Leukocyte Negative (Negative); Nitrite Negative (Negative); Protein, Urine (Dipstick) Trace mg/dL (Neg-Trace); Urobilinogen 0.2 mg/dL (0.2-1.0)
[2017-05-23 19:42] LABS: Bacteria/HPF None Seen HPF (None Seen); Hyaline Casts/LPF 0-3 HYALINE CAST LPF (0-3 Hyaline); Pathc Cast-AUWi Flag 0.67 (0-2.49); Squamous Epithelial 0-3 HPF (0-3); WBC/HPF 0-3 HPF (0-3)
== END 2017-05-23 20:23 | disposition home or self-care (01) ==
LOC: ERS 17:38
DX: N20.2 Calculus of kidney with calculus of ureter (principal); E86.0 Dehydration; K21.9 Gastro-esophageal reflux disease without esophagitis; F41.9 Anxiety disorder, unspecified; F31.9 Bipolar disorder, unspecified; F42.9 Obsessive-compulsive disorder, unspecified; Z79.899 Other long term (current) drug therapy
CPT/HCPCS: 36415; 51701; 74176; 80053; 81003; 81015; 85025; 96361; 96374; 96375; J1885; J2270; J2405

== ENCOUNTER 2017-06-10 11:13 | Outpatient (CLI) | payer OTHER | END 2017-06-10 11:14 | disposition home or self-care (01) | LOC: BICRAD 11:13 | PROVIDERS: ATTEND Urology | DX: N20.0 Calculus of kidney (principal) | CPT/HCPCS: 74018 ==

== ENCOUNTER 2017-07-06 13:29 | Emergency (ER) | payer OTHER ==
[2017-07-06] MEDS ORDERED: Ketorolac Tromethamine 30 MG/ML VIAL ONE (14:49)
[2017-07-06] MEDS ORDERED: Ondansetron HCl/PF 4 MG/2 ML Vial ONE (14:49)
[2017-07-06 17:22] LABS: Bilirubin Negative (Negative); Blood, Urine Negative (Negative); Clarity CLOUDY (Clear); Glucose, Urine (Dipstick) Negative (Negative); Leukocyte Negative (Negative); Nitrite Negative (Negative); Protein, Urine (Dipstick) Negative (Neg-Trace); Specific Gravity, Urine 1.014 (1.002-1.036); Urobilinogen 0.2 mg/dL (0.2-1.0)
[2017-07-06 17:40] LABS: Bacteria/HPF 2+ HPF (None Seen); Hyaline Casts/LPF NONE SEEN LPF (0-3 Hyaline); RBC/HPF None Seen HPF (0-3); Squamous Epithelial 0-3 HPF (0-3); WBC/HPF None Seen HPF (0-3)
--- NOTE | 2017-07-06 19:27 | RAD ---
KUB SERIES: 07/06/17 Two views provided. CLINICAL HISTORY: Flank pain. FINDINGS: There is calcific density overlying the left renal shadow compatible with nephrolithiasis. There is a lso calcific density medially within the left abdomen at the L3-4 level which may relate to an additi onal urinary tract calculus, although is not further localized. There is bowel content overlying each renal shadow limiting evaluation. IMPRESSION: Calcific densities overlying the left abdomen suggestive of urinary tract calculi. POS: [facility]
== END 2017-07-06 18:38 | disposition home or self-care (01) ==
LOC: ERS 13:29
DX: N20.0 Calculus of kidney (principal); K21.9 Gastro-esophageal reflux disease without esophagitis; F31.9 Bipolar disorder, unspecified; F41.9 Anxiety disorder, unspecified; F42.9 Obsessive-compulsive disorder, unspecified; F17.210 Nicotine dependence, cigarettes, uncomplicated; Z79.891 Long term (current) use of opiate analgesic; Z79.899 Other long term (current) drug therapy
CPT/HCPCS: 51701; 74018; 81001; 96361; 96374; 96375; J1885; J2405

== ENCOUNTER 2017-08-28 23:28 | Emergency (ER) | payer OTHER ==
[2017-08-29 00:17] LABS: #Basophils 0.1 thou/uL (0.0-0.2); #Eosinphils 0.2 thou/uL (0.0-0.7); #Lymphocytes 3.1 thou/uL (1.20-3.40); #Monocytes 1.1 thou/uL (0.11-0.59); #Neutrophils 6.9 thou/uL (1.40-6.50); %Basophils 0.7 % (0.0-1.0); %Eosinophils 1.4 % (0.0-10.0); %Lymphocytes 27.8 % (21.0-51.0); %Monocytes 9.4 % (0.0-10.0); %Neutrophils 60.7 % (42.0-75.0); Hemoglobin 14.5 g/dL (14.0-18.0); Mean Corpuscular HGB CONC 34.8 g/dL (32.0-36.0); Mean Corpuscular Volume 86.1 fl (80.0-94.0); Mean Platelet Volume 6.8 fL (7.4-10.4); Platelet Count 283 thou/uL (130-400); RBC Distribution Width 13.6 % (11.5-14.5); Red Blood Cell (RBC) Count 4.83 mill/uL (4.70-6.10); White Blood Cell (WBC) Count 11.3 thou/uL (4.8-10.8)
[2017-08-29 00:37] LABS: ALT (SGPT) 23 U/L (8-55); AST (SGOT) 26 U/L (5-34); Alkaline Phosphatase 86 U/L (40-150); Anion Gap 11 mmol/L (10-20); BUN (Urea Nitrogen) 13 mg/dL (8.9-20.6); Bilirubin, Total 0.4 mg/dL (0.2-1.2); Calc. Creatinine Clearance 0 mL/min (70-130); Calcium 8.8 mg/dL (7.8-10.44); Carbon Dioxide 18 mmol/L (22-29); Chloride 110 mmol/L (98-107); Estimated GFR-MDRD Greater than 90; Globulin 3.4 g/dL (2.4-3.5); Glucose 102 mg/dL (70-105); Protein, Total 7.4 g/dL (6.0-8.3); Sodium 135 mmol/L (136-145)
[2017-08-29] MEDS ORDERED: Ketorolac Tromethamine 30 MG/ML VIAL ONE (00:49)
[2017-08-29 00:51] LABS: Bilirubin Negative (Negative); Blood, Urine Small (Negative); Clarity CLEAR (Clear); Glucose, Urine (Dipstick) Negative (Negative); Leukocyte Negative (Negative); Nitrite Negative (Negative); Protein, Urine (Dipstick) Negative (Neg-Trace); Specific Gravity, Urine 1.015 (1.002-1.036); Urobilinogen 0.2 mg/dL (0.2-1.0); pH, Urine 6.5 (5.0-9.0)
[2017-08-29 00:54] LABS: Bacteria/HPF None Seen HPF (None Seen); Hyaline Casts/LPF 0-3 HYALINE CAST LPF (0-3 Hyaline); Pathc Cast-AUWi Flag 0.58 (0-2.49); Squamous Epithelial 0-3 HPF (0-3); WBC/HPF 0-3 HPF (0-3)
--- NOTE | 2017-08-29 07:49 | CT ---
PRELIMINARY REPORT/[facility]/EMERGENCY AFTER HOURS PROCEDURE: EXAM: CT Abdomen and Pelvis Without Intravenous Contrast CLINICAL HISTORY: 21 years old, male; Pain; Abdominal pain; Flank; Left; Patient HX: Er 9; Reports left flank pain star davida about 1400 today TECHNIQUE: Axial computed tomography images of the abdomen and pelvis without intravenous contrast. Coronal refo rmatted images were created and reviewed. COMPARISON: No relevant prior studies available. FINDINGS: The lung bases are clear. Right kidney: Several right intrarenal calculi. No hydronephrosis or visible mass. No hydroureter or visible ureteral calculus. Left kidney: Several left lower pole intrarenal calculi. Mild to moderate left hydronephrosis. There are 3 adjacent proximal left ureteral calculi. The largest and more distal calculus measures 4 mm in diameter, and lies at the mid L3 level. Two smaller 2 mm calculi proximal to the largest calculus. No definite gallbladder abnormality by CT. No biliary tree dilation. Unremarkable appearance of the liver, spleen, adrenal glands, and pancreas. No free air, ascites, or bowel distention. No evidence for abdominal aortic aneurysm. No retroperitoneal adenopathy. CT pelvis: 2-3 mm calculus in the right dependent aspect of the urinary bladder. Possible mild to moderate diffuse urinary bladder wall thickening. While nonspecific, this could indicate evidence for cystitis. Please correlate clinically. The appendix is visualized and appears normal. There are no CT findings to strongly suggest diverticulitis. Possibility of mild mucosal/wall thickening involving the rectum. While nonspecific, this appearance may be secondary to some form of colitis/proctitis. Please correla te clinically. No abnormal mass or fluid collection in the pelvis. IMPRESSION: There are 3 adjacent proximal left ureteral calculi, details above. Mild to moderate left hydronephrosis. Bilateral intrarenal calculi. Small calculus in the urinary bladder. Possible urinary bladder wall thickening, see above. Possibility of mild mucosal/wall thickening involving the rectum, see above. Normal appendix. Other findings discussed above. Thank you for allowing us to participate in the care of your patient. Dictated and Authenticated by: Juan Diego Vieyra MD 08/29/2017 1:07 AM Central Time ([place]) FINAL REPORT EMERGENCY AFTER HOURS CT OF ABDOMEN AND PELVIS PERFORMED WITHOUT CONTRAST ENHANCEMENT: Date: 08/29/17 HISTORY: Left flank pain. COMPARISON: 05/23/17 study. FINDINGS: The lung bases are clear of infiltrates. Liver, spleen, pancreas, and gallbladder regions appear unre markable given the limitations of a noncontrast study. Small hiatal hernia is present. Right and left adrenal glands, and right and left kidneys are normal in size. Bilateral renal calculi are seen with numerous calculi seen particularly in the lower pole of the left kidney. There is left -sided hydronephrosis and hydroureter, which appears to be related to a grouping of three calculi. Th e largest is the most distal, it is 4.0 mm. The other two are 1-2 mm in size. These are in the proxim al left ureter at approximately L3. No significant periaortic or mesenteric adenopathy. CT of pelvis was performed without contrast enhancement. There is a calculus within the bladder. It i s near the right ureterovesical junction and presumably is a recently passed stone. IMPRESSION: 1. Three proximal left ureteral calculi associated with mild left-sided hydronephrosis and hydrouret er. Calculi are located at L3. 2. Bilateral lower pole renal calculi. 3. Punctate bladder calculus. Presumably this is a stone that has recently passed from the ureter. This report is in agreement with the preliminary report issued by [facility]. POS: [facility]
== END 2017-08-29 01:20 | disposition home or self-care (01) ==
LOC: ERS 23:28
DX: N13.2 Hydronephrosis with renal and ureteral calculous obstruction (principal); K21.9 Gastro-esophageal reflux disease without esophagitis; Z87.442 Personal history of urinary calculi; F41.9 Anxiety disorder, unspecified; F31.9 Bipolar disorder, unspecified; F42.9 Obsessive-compulsive disorder, unspecified; F17.210 Nicotine dependence, cigarettes, uncomplicated; Z79.899 Other long term (current) drug therapy
CPT/HCPCS: 36415; 74176; 80053; 81003; 81015; 85025; 96361; 96374; J1885

== ENCOUNTER 2017-09-19 09:20 | Emergency (ER) | payer OTHER ==
[2017-09-19 10:08] LABS: #Basophils 0.1 thou/uL (0.0-0.2); #Eosinphils 0.1 thou/uL (0.0-0.7); #Lymphocytes 3.6 thou/uL (1.20-3.40); #Neutrophils 4.9 thou/uL (1.40-6.50); %Basophils 1.2 % (0.0-1.0); %Eosinophils 1.5 % (0.0-10.0); %Lymphocytes 36.8 % (21.0-51.0); %Neutrophils 50.5 % (42.0-75.0); Hemoglobin 14.2 g/dL (14.0-18.0); Mean Corpuscular HGB CONC 33.5 g/dL (32.0-36.0); Mean Corpuscular Hemoglobin 28.9 pg (27.0-31.0); Mean Corpuscular Volume 86.1 fL (78.0-98.0); Mean Platelet Volume 7.1 fL (7.4-10.4); Platelet Count 284 thou/uL (130-400); RBC Distribution Width 13.5 % (11.5-14.5); Red Blood Cell (RBC) Count 4.93 mill/uL (4.70-6.10); White Blood Cell (WBC) Count 9.7 thou/uL (4.8-10.8)
[2017-09-19] MEDS ORDERED: Ketorolac Tromethamine 30 MG/ML VIAL ONE (10:11)
[2017-09-19] MEDS ORDERED: Ondansetron ODT 8 MG TAB ONE (10:11)
--- NOTE | 2017-09-19 10:22 | RAD ---
ABDOMEN 1 VIEW: Date: 09/19/17 HISTORY: Left flank pain. FINDINGS: Comparison made with exam of 07/06/17. Calcific densities in the projection of the left kidney are again seen consistent with nephrolithiasi s. The bowel gas pattern is unremarkable with fecal material in the colon, which may obscure urinary tract calculi. IMPRESSION: Stable left-sided renal calculi. POS: [facility]
[2017-09-19 10:30] LABS: Anion Gap 10 mmol/L (10-20); BUN (Urea Nitrogen) 14 mg/dL (8.9-20.6); Calc. Creatinine Clearance 0 mL/min (70-130); Calcium 8.8 mg/dL (7.8-10.44); Carbon Dioxide 19 mmol/L (22-29); Chloride 110 mmol/L (98-107); Estimated GFR-MDRD Greater than 90; Glucose 105 mg/dL (70-105); Potassium 4.1 mmol/L (3.5-5.1); Sodium 135 mmol/L (136-145)
== END 2017-09-19 11:51 | disposition home or self-care (01) ==
LOC: ERS 09:20
DX: N20.1 Calculus of ureter (principal); K21.9 Gastro-esophageal reflux disease without esophagitis; Z87.442 Personal history of urinary calculi; F41.9 Anxiety disorder, unspecified; F31.9 Bipolar disorder, unspecified; F42.9 Obsessive-compulsive disorder, unspecified; F17.210 Nicotine dependence, cigarettes, uncomplicated; Z79.899 Other long term (current) drug therapy
CPT/HCPCS: 74018; 80048; 85025; 96361; 96374; J1885

== ENCOUNTER 2017-09-28 22:41 | Emergency (ER) | payer OTHER ==
[2017-09-28 23:06] LABS: Bilirubin Negative (Negative); Blood, Urine Moderate (Negative); Clarity CLEAR (Clear); Glucose, Urine (Dipstick) Negative (Negative); Leukocyte Negative (Negative); Nitrite Negative (Negative); Protein, Urine (Dipstick) Negative (Neg-Trace); Specific Gravity, Urine 1.006 (1.002-1.036); Urobilinogen 0.2 mg/dL (0.2-1.0)
[2017-09-28 23:08] LABS: Bacteria/HPF None Seen HPF (None Seen); Hyaline Casts/LPF 0-3 HYALINE CAST LPF (0-3 Hyaline); Pathc Cast-AUWi Flag 0.43 (0-2.49); RBC/HPF 0-3 HPF (0-3); Squamous Epithelial 0-3 HPF (0-3); WBC/HPF 0-3 HPF (0-3)
[2017-09-28] MEDS ORDERED: Ketorolac Tromethamine 30 MG/ML VIAL ONE (23:15)
[2017-09-28 23:34] LABS: #Basophils 0.1 thou/uL (0.0-0.2); #Eosinphils 0.2 thou/uL (0.0-0.7); #Lymphocytes 3.1 thou/uL (1.20-3.40); #Neutrophils 5.6 thou/uL (1.40-6.50); %Basophils 1.1 % (0.0-1.0); %Eosinophils 1.6 % (0.0-10.0); %Lymphocytes 31.2 % (21.0-51.0); %Monocytes 10.3 % (0.0-10.0); %Neutrophils 55.9 % (42.0-75.0); Hemoglobin 13.5 g/dL (14.0-18.0); Mean Corpuscular HGB CONC 31.9 g/dL (32.0-36.0); Mean Corpuscular Hemoglobin 27.8 pg (27.0-31.0); Mean Platelet Volume 7.2 fL (7.4-10.4); Platelet Count 288 thou/uL (130-400); RBC Distribution Width 13.4 % (11.5-14.5); Red Blood Cell (RBC) Count 4.87 mill/uL (4.70-6.10); White Blood Cell (WBC) Count 10.1 thou/uL (4.8-10.8)
[2017-09-29] LABS: ALT (SGPT) 21 U/L (8-55); AST (SGOT) 15 U/L (5-34); Albumin 3.8 g/dL (3.5-5.0); Alkaline Phosphatase 79 U/L (40-150); Anion Gap 10 mmol/L (10-20); BUN (Urea Nitrogen) 16 mg/dL (8.9-20.6); Bilirubin, Total 0.3 mg/dL (0.2-1.2); Calc. Creatinine Clearance 0 mL/min (70-130); Carbon Dioxide 20 mmol/L (22-29); Chloride 110 mmol/L (98-107); Estimated GFR-MDRD 76; Globulin 2.8 g/dL (2.4-3.5); Glucose 104 mg/dL (70-105); Potassium 3.7 mmol/L (3.5-5.1); Protein, Total 6.6 g/dL (6.0-8.3); Sodium 136 mmol/L (136-145)
== END 2017-09-29 00:28 | disposition home health service, planned readmission (86) ==
LOC: ERS 22:41
DX: N20.1 Calculus of ureter (principal)
CPT/HCPCS: 80053; 81003; 81015; 85025; 96361; 96374; 96375; J1885; J2270

== ENCOUNTER 2017-11-22 09:08 | Emergency (ER) | payer OTHER ==
[2017-11-22 10:25] LABS: Bilirubin Negative (Negative); Blood, Urine Negative (Negative); Clarity CLEAR (Clear); Glucose, Urine (Dipstick) Negative (Negative); Leukocyte Small (Negative); Nitrite Negative (Negative); Protein, Urine (Dipstick) Negative (Neg-Trace); Specific Gravity, Urine 1.015 (1.002-1.036); Urobilinogen 0.2 mg/dL (0.2-1.0)
[2017-11-22 10:27] LABS: Bacteria/HPF None Seen HPF (None Seen); Hyaline Casts/LPF 0-3 HYALINE CAST LPF (0-3 Hyaline); Pathc Cast-AUWi Flag 0.29 (0-2.49); RBC/HPF 0-3 HPF (0-3); Squamous Epithelial 0-3 HPF (0-3); WBC/HPF 21-50 HPF (0-3)
[2017-11-22 10:37] LABS: #Basophils 0.1 thou/uL (0.0-0.2); #Eosinphils 0.2 thou/uL (0.0-0.7); #Lymphocytes 2.7 thou/uL (1.20-3.40); #Monocytes 0.9 thou/uL (0.11-0.59); #Neutrophils 5.4 thou/uL (1.40-6.50); %Basophils 1.1 % (0.0-1.0); %Eosinophils 1.8 % (0.0-10.0); %Lymphocytes 29.4 % (21.0-51.0); %Monocytes 9.7 % (0.0-10.0); Hemoglobin 13.9 g/dL (14.0-18.0); Mean Corpuscular HGB CONC 34.5 g/dL (32.0-36.0); Mean Corpuscular Hemoglobin 29.1 pg (27.0-31.0); Mean Corpuscular Volume 84.3 fL (78.0-98.0); Mean Platelet Volume 6.8 fL (7.4-10.4); Platelet Count 321 thou/uL (130-400); RBC Distribution Width 13.7 % (11.5-14.5); White Blood Cell (WBC) Count 9.3 thou/uL (4.8-10.8)
[2017-11-22 11:01] LABS: ALT (SGPT) 22 U/L (8-55); AST (SGOT) 16 U/L (5-34); Albumin 4.1 g/dL (3.5-5.0); Alkaline Phosphatase 96 U/L (40-150); Anion Gap 14 mmol/L (10-20); BUN (Urea Nitrogen) 19 mg/dL (8.9-20.6); Bilirubin, Total 0.5 mg/dL (0.2-1.2); Calc. Creatinine Clearance 0 mL/min (70-130); Calcium 9.4 mg/dL (7.8-10.44); Carbon Dioxide 16 mmol/L (22-29); Chloride 109 mmol/L (98-107); Estimated GFR-MDRD 40; Globulin 3.5 g/dL (2.4-3.5); Glucose 99 mg/dL (70-105); Potassium 3.6 mmol/L (3.5-5.1); Protein, Total 7.6 g/dL (6.0-8.3); Sodium 135 mmol/L (136-145)
[2017-11-22] MEDS ORDERED: Ondansetron HCl/PF 4 MG/2 ML Vial ONE (11:27)
--- NOTE | 2017-11-22 12:06 | ULT ---
RENAL ULTRASOUND: INDICATIONS: History of abdominal pain and renal stones. COMPARISON: CT abdomen and pelvis dated 11/13/2017. FINDINGS: The right kidney measures 10.3 x 5.1 x 5.2 cm. There are multiple small shadowing stones involving t he mid to inferior pole of the right kidney. There is mild right hydronephrosis. The left kidney measures 11.6 x 6.2 x 7.1 cm. There is mild to moderate left hydronephrosis. The vi sualized bladder is unremarkable. IMPRESSION: Mild to moderate left and mild right hydronephrosis. The extent of the hydronephrosis appears simila r to the comparison CT dated 11/13/2017. POS: [facility]
== END 2017-11-22 15:06 | disposition home or self-care (01) ==
LOC: ERS 09:08
DX: N13.2 Hydronephrosis with renal and ureteral calculous obstruction (principal); K21.9 Gastro-esophageal reflux disease without esophagitis; F41.9 Anxiety disorder, unspecified; F31.9 Bipolar disorder, unspecified; F42.9 Obsessive-compulsive disorder, unspecified; F17.210 Nicotine dependence, cigarettes, uncomplicated; Z79.899 Other long term (current) drug therapy
CPT/HCPCS: 36415; 76770; 80053; 81003; 81015; 85025; 96361; 96374; 96375; 99406; J2270; J2405

== ENCOUNTER → 2017-11-23 | Day surgery (SDC) | payer OTHER ==
[~2017-11-23] MED LIST: Fentanyl 100 MCG/2 ML VIAL ONE; Fentanyl 250 MCG/5 ML VIAL ONE; Iothalamate Meglumine 60% 50 ML VIAL FS ONE; cefTRIAXone\\ROCEPHIN 2 GM in Sodium Chloride 0.9% 100 ML IVPB SCH
[2017-11-23 10:54] LABS: #Basophils 0.1 thou/uL (0.0-0.2); #Eosinphils 0.2 thou/uL (0.0-0.7); #Lymphocytes 2.4 thou/uL (1.20-3.40); #Neutrophils 5.9 thou/uL (1.40-6.50); %Basophils 0.8 % (0.0-1.0); %Eosinophils 1.7 % (0.0-10.0); %Lymphocytes 25.5 % (21.0-51.0); %Monocytes 10.1 % (0.0-10.0); %Neutrophils 61.9 % (42.0-75.0); Hemoglobin 13.6 g/dL (14.0-18.0); Mean Corpuscular Hemoglobin 28.9 pg (27.0-31.0); Mean Corpuscular Volume 84.9 fL (78.0-98.0); Mean Platelet Volume 6.7 fL (7.4-10.4); Platelet Count 332 thou/uL (130-400); RBC Distribution Width 13.8 % (11.5-14.5); Red Blood Cell (RBC) Count 4.73 mill/uL (4.70-6.10); White Blood Cell (WBC) Count 9.6 thou/uL (4.8-10.8)
[2017-11-23 11:00] LABS: INR-International Normal Ratio 1.1; Prothrombin Time 13.9 SEC (12.0-14.7)
[2017-11-23 11:16] LABS: Anion Gap 11 mmol/L (10-20); BUN (Urea Nitrogen) 18 mg/dL (8.9-20.6); Calc. Creatinine Clearance 0 mL/min (70-130); Calcium 8.5 mg/dL (7.8-10.44); Carbon Dioxide 18 mmol/L (22-29); Chloride 112 mmol/L (98-107); Estimated GFR-MDRD 40; Glucose 96 mg/dL (70-105); Potassium 3.7 mmol/L (3.5-5.1); Sodium 137 mmol/L (136-145)
[2017-11-23 16:22] LABS: Bilirubin Negative (Negative); Blood, Urine Large (Negative); Glucose, Urine (Dipstick) Negative (Negative); Leukocyte Large (Negative); Nitrite Negative (Negative); Protein, Urine (Dipstick) 100 mg/dL (Neg-Trace); Specific Gravity, Urine 1.018 (1.002-1.036); Urobilinogen 0.2 mg/dL (0.2-1.0); pH, Urine 5.5 (5.0-9.0)
[2017-11-23 16:25] LABS: Pathc Cast-AUWi Flag 76.08 (0-2.49); Yeast-AUWi Flag 760.8 (0-25.0)
[2017-11-23 16:28] LABS: Clarity TURBID (Clear)
[2017-11-23 16:29] LABS: Bacteria/HPF 2+ HPF (None Seen); Crystals/HPF 1+ CA OXALATE HPF (Negative); Hyaline Casts/LPF NONE SEEN LPF (0-3 Hyaline); Renal Epithelial 0-3 HPF (0-3); Transitional Epithelial NONE SEEN HPF (0-3); Yeast-All Forms None Seen HPF (None Seen)
[2017-11-23 16:30] LABS: Manual Microscopic Reviewed? No Path Casts Seen
--- NOTE | 2017-11-23 19:20 | OP ---
DATE OF PROCEDURE: 11/23/2017 PREOPERATIVE DIAGNOSES: Bilateral renal stones, left proximal ureteral stone, elevated creatinine. POSTOPERATIVE DIAGNOSES: Bilateral renal stones, left proximal ureteral stone, elevated creatinine. PROCEDURE PERFORMED: Cystoscopy, right stent and left stent. SURGEON: Dr. Francisco Mitchell. ANESTHETIC: General. ESTIMATED BLOOD LOSS: Minimal. FINDINGS: The urine proximal to the impacted left ureteral stone was very cloudy. Both renal collec ting systems were hydronephrotic. He had a ureteral perforation at the site of the impacted left sto ne, which did not allow us to treat him with shockwaves today. In addition to that cloudiness of the urine made treating with shockwave unlikely contraindicated also. DRAINS PLACED: A 4.8 x 24 cm double-J stent, no strings were attached to either. 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 He had no yolanda dence of bladder tumor, foreign body, or stone . On the right side, he had a renal pelvic stone and on the left side, he had a proximal ureteral stone. We attempted to get a Glidewire by in a pro cess got a ureteral perforation. However, we were able to manipulate the Glidewire by this into a di lated left collecting system and drained out about 30 mL of very cloudy dark concentrated urine, whic h was sent for culture, but for this reason, a clot in his urine as well as this ureteral perforation . We did not do shockwave today will probably look at doing it next week. OPERATIVE TECHNIQUE: After obtaining written and verbal consent from the patient after receiving IV antibiotics and after documenting normal preoperative blood work, he was taken the operating suite. He was placed in the supine position on the treatment table. PlexiPulses were placed on his lower ex tremities and turned on. He was given a general anesthetic and oral intubation. He was then placed in the dorsal lithotomy position, sterilely prepped and draped. Cystoscopy was performed with a 25-F rench sheath. This was passed well lubricated under direct vision through the male urethra and into the urinary bladder with aid of a 30-degree lens and video camera and monitor. The bladder was fille d and emptied a number of times. There was no obvious pathology in the bladder. The urethra was as described. The right ureteral orifice was identified and a guidewire was fed up this side. A fluoro scopy was used and positioned over the calcification in the right renal pelvis. The guidewire went b y this easily. We then placed a 5 Moroccan Pollack catheter over this wire, removed the wire injecting contrast showing out a mildly dilated right renal collecting system and calyceal system. The guidew claire was replaced. The open-ended catheter was removed, and the stent was placed over the guidewire a nd pushed up in place with aid of a pusher so its proximal end coiled in the renal pelvis and its dis rosamaria end coiled in the bladder when the wire was removed. We then returned our attention to the left side. A guidewire was fed up to the area of the stone which was in the proximal left ureter open-end ed catheter was fed up this level and a guidewire would not go by it. We brought and angle angle-tip ped Glidewire and attempted to manipulate this by doing so, a ureteral perforation was encountered an d identified only because when we did inject some contrast at this point it did show contrast to be o utside of the collecting system. We were able to continue; however, to manipulate with the angled Gl idewire and get this to get by the stone and into the renal pelvis. The open-ended catheter was then advanced past this and up into this collecting system. We drained off 30 mL of very cloudy dark uri ne and then injected about 10 mL to fill out a dilated collecting system on this side. We then repla codie the guidewire through the open-ended catheter, removed the open-ended catheter and placed a 6 x 2 4 Polaris double-J stent over the guidewire, pushing up into place with aid of a pusher so its proxim al end coiled in the renal pelvis and its distal end coiled in the bladder when the wire was removed. Because of the ureteral perforation and because of cloudiness of the urine, we did not do shockwave therapy today. At this point, the bladder straining instruments were removed. He was taken out of the dorsal spine position, awakened, extubated, and taken by stretcher to the recovery room.
== END ==
LOC: SDC 09:50
PROVIDERS: ATTEND Urology
PROC: 0T788DZ Dilation of Bilateral Ureters with Intraluminal Device, Via Natural or Artificial Opening Endoscopic (ICD-10-PCS; principal; 2017-11-23)
DX: N20.2 Calculus of kidney with calculus of ureter (principal); I10 Essential (primary) hypertension; K21.9 Gastro-esophageal reflux disease without esophagitis; Z91.030 Bee allergy status
CPT/HCPCS: 36415; 80048; 81001; 85025; 85576; 85610; 85730; C1758; C1769; J0696; J3010; J7050; Q9961

== ENCOUNTER 2017-11-26 07:31 | Emergency (ER) | payer OTHER ==
[2017-11-26 08:42] LABS: ALT (SGPT) 15 U/L (8-55); AST (SGOT) 14 U/L (5-34); Alkaline Phosphatase 101 U/L (40-150); Anion Gap 11 mmol/L (10-20); BUN (Urea Nitrogen) 16 mg/dL (8.9-20.6); Bilirubin, Total 0.5 mg/dL (0.2-1.2); Calc. Creatinine Clearance 0 mL/min (70-130); Calcium 9.1 mg/dL (7.8-10.44); Carbon Dioxide 18 mmol/L (22-29); Chloride 113 mmol/L (98-107); Estimated GFR-MDRD 48; Globulin 3.4 g/dL (2.4-3.5); Glucose 98 mg/dL (70-105); Potassium 3.4 mmol/L (3.5-5.1); Protein, Total 7.4 g/dL (6.0-8.3); Sodium 139 mmol/L (136-145)
[2017-11-26] MEDS ORDERED: Ketorolac Tromethamine 30 MG/ML VIAL ONE (08:44)
[2017-11-26] MEDS ORDERED: Ondansetron HCl/PF 4 MG/2 ML Vial ONE (08:44)
[2017-11-26 08:47] LABS: #Basophils 0.1 thou/uL (0.0-0.2); #Eosinphils 0.2 thou/uL (0.0-0.7); #Lymphocytes 3.1 thou/uL (1.20-3.40); #Monocytes 1.4 thou/uL (0.11-0.59); #Neutrophils 8.2 thou/uL (1.40-6.50); %Basophils 0.8 % (0.0-1.0); %Eosinophils 1.5 % (0.0-10.0); %Lymphocytes 23.7 % (21.0-51.0); %Monocytes 10.5 % (0.0-10.0); %Neutrophils 63.5 % (42.0-75.0); Hemoglobin 13.7 g/dL (14.0-18.0); Mean Corpuscular Hemoglobin 28.8 pg (27.0-31.0); Mean Corpuscular Volume 84.8 fL (78.0-98.0); Mean Platelet Volume 6.8 fL (7.4-10.4); Platelet Count 347 thou/uL (130-400); Red Blood Cell (RBC) Count 4.77 mill/uL (4.70-6.10)
[2017-11-26 08:49] LABS: Clarity CLOUDY (Clear)
[2017-11-26 08:51] LABS: Bacteria/HPF None Seen HPF (None Seen); Pathc Cast-AUWi Flag 1.34 (0-2.49)
[2017-11-26 09:06] LABS: Yeast-AUWi Flag 273.8 (0-25.0)
[2017-11-26 09:07] LABS: Glucose, Urine (Dipstick) Unable to Interpret mg/dL (Negative); Leukocyte Unable to Interpret (Negative); Nitrite Unable to Interpret (Negative); Protein, Urine (Dipstick) Unable to Interpret mg/dL (Neg-Trace)
[2017-11-26 09:08] LABS: Bilirubin Unable to Interpret (Negative); Blood, Urine Unable to Interpret (Negative); Urobilinogen UNABLE TO INTERPRET mg/dL (0.2-1.0)
[2017-11-26 09:14] LABS: Specific Gravity, Urine 1.009 (1.002-1.036); pH, Urine 6.7 (5.0-9.0)
[2017-11-26 09:17] LABS: Hyaline Casts/LPF 0-3 HYALINE CAST LPF (0-3 Hyaline); RBC/HPF GREATER THAN 50-TNTC HPF (0-3); Transitional Epithelial 0-3 HPF (0-3); Yeast-All Forms None Seen HPF (None Seen)
--- NOTE | 2017-11-26 10:38 | CT ---
CT ABDOMEN AND PELVIS PERFORMED WITHOUT CONTRAST ENHANCEMENT: Date: 11/26/17 HISTORY: Right flank pain. History of renal calculi. COMPARISON: 11/13/17 study. FINDINGS: The lung bases are clear of any infiltrative process. The liver, spleen, pancreas, and gallbladder regions appear unremarkable given the limitations of a n oncontrast study. Right and left adrenal glands are normal in appearance. Bilateral ureteral stents appear to be in goo d position. There are multiple renal calculi. In addition, there is what appear to be two proximal le ft ureteral calculi located just below the ureteropelvic junction. The larger one of these is perhaps 6.0 mm in size and the other is a smaller punctate calcification. There is a 5-6 mm calcification al so seen in the proximal right ureter just below the ureteropelvic junction. There is no significant d ilatation of either collecting system. Minimal prominence on the right side. The ureters show periure teral fat stranding that are nondilated. The distal ends of the ureteral stents are within the bladde r. There is no significant periaortic or mesenteric adenopathy. CT of pelvis was performed without contrast enhancement. There is no adenopathy, mass, or free fluid. There is some question of some rectal wall thickening. It has a similar appearance to the previous e xamination. IMPRESSION: 1. Bilateral ureteral stents in place with multiple bilateral renal calculi and bilateral proximal u reteral calculi with very minimal dilatation to the right collecting system associated with these fin dings. 2. Questionable slight wall thickening to the rectosigmoid colon. This could just be on the basis of underdistention. POS: [facility]
== END 2017-11-26 10:53 | disposition home or self-care (01) ==
LOC: ERS 07:31
DX: N20.0 Calculus of kidney (principal); K21.9 Gastro-esophageal reflux disease without esophagitis; F41.9 Anxiety disorder, unspecified; F31.9 Bipolar disorder, unspecified; F17.210 Nicotine dependence, cigarettes, uncomplicated; Z79.899 Other long term (current) drug therapy
CPT/HCPCS: 36415; 74176; 80053; 81003; 81015; 85025; 87086; 96374; 96375; J1885; J2405

== ENCOUNTER 2017-11-30 05:49 | Day surgery (SDC) | payer OTHER ==
[2017-11-29 09:17] VITALS: BMI 46.7
[2017-11-30] MEDS ORDERED: Fentanyl 100 MCG/2 ML VIAL ONE (07:22)
--- NOTE | 2017-11-30 09:55 | RAD ---
SINGLE VIEW ABDOMEN: HISTORY: Renal calculi. COMPARISON: 09/19/2017 FINDINGS: A single view of the abdomen shows a nonspecific, nonobstructed bowel gas pattern. There are bilater al double-J ureteral stents. Calcifications are seen projecting over both renal shadows. The larges t calcification on the right measures 1.4 cm in size. The largest calcification on the left measures 0.9 cm in size. No calcifications are seen along the course of the stents. IMPRESSION: Bilateral nephrolithiasis. POS: [facility]
--- NOTE | 2017-11-30 12:56 | OP ---
DATE OF PROCEDURE: 11/30/2017 PREOPERATIVE DIAGNOSIS: Left ureteral stone, right ureteral stone. POSTOPERATIVE DIAGNOSIS: Left ureteral stone, right ureteral stone. PROCEDURE PERFORMED: Left ESWL. SURGEON: Dr. Francisco Mitchell. ANESTHETIC: General. ESTIMATED BLOOD LOSS: Not recorded. FINDINGS: There is 8 mm conglomeration of stones in the proximal to mid left ureter. They wer e treated with 3000 shocks at level 5. He does have on CAT scan, a small stone in the proximal right ureter. This was not visible on the KUB, so we cannot treat that today. OPERATIVE TECHNIQUE: Obtained written and verbal consent from the patient. He was taken to the oper ating suite, he was placed in supine position on the treatment table. PlexiPulses were placed on his lower extremities and turned on. He was given 250 mg of Levaquin IV piggyback. He was coupled to Konotor lithotripter unit. The stones were placed in treatment focal point. Shockwave therapy was commen codie and slowly worked up to level 5. Fluoroscopy was used to reposition as necessary. It did appear that the region of the stones did change the appearance suggesting fragment. We, at the end o f the case, removed the head and used the C-arm unit to look at the right proximal ureter. His last CAT scan from this weekend showed that there was a small stone in the proximal right ureter and the t hought was that we could possibly treat it as both ureters have been stented; however, we were unable to visualize it and for that reason, we could not treat it, so at this point, the procedure was term inated. He was awakened, extubated, and taken by stretcher to the recovery room.
== END 2017-11-30 12:00 | disposition home or self-care (01) ==
LOC: SDC 05:49
PROVIDERS: ATTEND Urology
PROC: 0TF7XZZ Fragmentation in Left Ureter, External Approach (ICD-10-PCS; principal; 2017-11-30)
DX: N20.2 Calculus of kidney with calculus of ureter (principal); Z91.030 Bee allergy status; Z79.899 Other long term (current) drug therapy
CPT/HCPCS: 74018; J1956; J3010

== ENCOUNTER 2017-12-07 10:12 | Day surgery (SDC) | payer OTHER ==
[2017-12-06 13:33] VITALS: BMI 48.2
[2017-12-07] MEDS ORDERED: Levofloxacin 500 mg/D5W 100 ml Premix Bag ONE (10:36)
[2017-12-07] MEDS ORDERED: Iothalamate Meglumine 60% 50 ML VIAL FS ONE (13:25)
[2017-12-07] MEDS ORDERED: Fentanyl 100 MCG/2 ML VIAL ONE (13:35)
[2017-12-07] MEDS ORDERED: Midazolam HCl 2 mg/2 ml Vial ONE (13:35)
--- NOTE | 2017-12-07 16:33 | RAD ---
RETROGRADE BILATERAL UROGRAMS: 12/07/2017 HISTORY: Bilateral renal stones. COMPARISON: AP view abdomen from 11/30/2017. FINDINGS/IMPRESSION: Fluoroscopy was provided for Dr. Doan. Provided images demonstrate double pigtail bilateral ureter al stents in place. There is partial opacification of the renal collecting systems bilaterally. No definite filling defects are able to be delineated, as there is incomplete contrast opacification. C orrelation with intraoperative findings is recommended. POS: [facility]
[2017-12-07] MEDS ORDERED: Promethazine HCl 25 MG/ML VIAL ONE (17:11)
[2017-12-07] MEDS ORDERED: Morphine 4 MG/ML VIAL ONE (17:16)
[2017-12-07] MEDS ORDERED: HYDROcodone/Acetaminophen 5/325 mg Tablet ONE (18:03)
--- NOTE | 2017-12-07 20:48 | OP ---
DATE OF PROCEDURE: 12/07/2017 PREOPERATIVE DIAGNOSES: Bilateral ureteral stones and bilateral renal stones. POSTOPERATIVE DIAGNOSES: Bilateral ureteral stones and bilateral renal stones. PROCEDURE PERFORMED: Cystoscopy, removal of bilateral stents, left flexible ureteroscopy with laser lithotripsy and retrieval of left proximal ureteral and left renal pelvic stones with stent replaceme nt, removal of right stent and right flexible ureteroscopy with stone retrieval, and right stent repl acement. SURGEON: Dr. Francisco Mitchell. ANESTHETIC: General. ESTIMATED BLOOD LOSS: Less 100 mL. DRAINS PLACED: A 6 x 24 Polaris double-J stents on both sides without any strings attached. FINDINGS: There was a partially fragmented left proximal ureteral stone that was basketed and broken up also with laser. There were lower pole calyceal stones that were broken up with a laser and then basketed and removed. There was an impacted right proximal ureteral stone that when passing the fle xible scope up to it and by it, it broke into pieces that were able to be basketed, so we did not req uire laser on this side, there was a fairly large right renal pelvic stone which we did not tackled t jory with the laser because of its size and the amount of time it would take and it may be better loki ated with ESWL. So, the family will need to make a decision on that. OPERATIVE TECHNIQUE: Obtain written and verbal consent from the patient, he was taken to the operati ng suite. He received IV antibiotics. He was placed in the supine position on the treatment table. PlexiPulses were placed on his lower extremities and turned on. He was given a general anesthetic a nd oral obturator intubation. He was placed in the dorsal lithotomy position. He was sterilely prep ped and draped. Cystoscopy was performed with a 20-Cameroonian sheath. This was well lubricated and pass ed under direct vision through the male urethra into the bladder with a video camera and monitor and a 30-degree lens. The bladder was filled and emptied a number of times and then the distal end of th e left double-J stent was grasped with a pair of flexible grasping forceps, brought out through the u rethral meatus and a guidewire was fed up over it up in the renal pelvis and the stent was removed. A dual-lumen ureteral catheter was then placed over this guidewire about snf up the left ureter a nd a second guidewire was then passed up in the region of the renal pelvis, removing the dual-lumen c atheter. We then brought in a medium sized ureteral sheath and obturator, passed over one of our jordan dewires up to a region that was below where the stones were in the proximal ureter. This was done ov er the guidewire and then the guidewire and obturator was removed. At this point, we brought in the flexible ureteroscope and under direct vision passed it up the course of the ureter to the area where the stone fragments still in the proximal ureter. Some of these were basketed, some are broken up w ith the laser and then some of those pieces were basketed. Because this was relatively easy to do, chanda oconnor went very quickly, we went ahead and turned our attention to some stones that he had in the lower p ole of the left kidney. We basketed some of these and broke some of these up with laser and then bas ket some of those fragments. After this was completed, keeping our one guidewire still in place, we backed out the ureteral sheath under direct vision with the aid of the flexible ureteroscope. There was no other evidence of stone seen in the left ureter. We left this guidewire in place and then tur vincenzo our attention to the opposite side. A cystoscope was used to grasp the distal end of the right d ouble-J stent and bring it out through the urethral meatus. A guidewire was fed up this side. The s tent was discarded. A dual-lumen catheter was placed over the guidewire about mid ureter and then a second guidewire was again placed. The ureteral sheath was again brought in with obturator and passe d up about midway up the ureter over one of the wires and then the obturator and the guidewire was re moved. The flexible ureteroscope was brought in and under direct vision was passed up to the area of the proximal ureter. It was quite narrow in this region and somewhat edematous. We were able to ge t the ureteroscope by this and while doing so pushed the stone. It was probably somewhat embedded an d impacted into the ureter and just proximal to this point and doing this, the stone broke into multi ple pieces which we then basketed out and removed. We then did flexible ureteroscopy all the way up to the renal pelvis where he has a fairly large stone in the renal pelvis that we did not treat today because of the size of the amount of time it would require. No other fragments or stones were seen in the proximal ureter. We then backed out the ureteral sheath under direct vision keeping our guide wire in place. There were no other abnormalities in the right ureter as we backed this all the way o ut and removed it. We then backloaded the right wire through the cystoscope and passed a 6 Cameroonian x 24 cm double-J stent over this wire, pushing up into place with the proximal end coiled in the renal pelvis and its distal end coiled in the bladder. When the wire was removed and then the left side st ent was done in the same manner. We did shoot some contrast up both sides with a 5-Cameroonian Pollack ca theter before doing this to document positioning of the renal pelvis. There was no extravasation see n on either side. At this point, the bladder straining instruments were removed. The patient was aw akened, extubated, and taken by stretcher to the recovery room.
== END 2017-12-07 18:46 | disposition home or self-care (01) ==
LOC: SDC 10:12
PROVIDERS: ATTEND Urology
PROC: 0T788DZ Dilation of Bilateral Ureters with Intraluminal Device, Via Natural or Artificial Opening Endoscopic (ICD-10-PCS; principal; 2017-12-07)
PROC: 0TC68ZZ Extirpation of Matter from Right Ureter, Via Natural or Artificial Opening Endoscopic (ICD-10-PCS; principal; 2017-12-07)
PROC: 0TF78ZZ Fragmentation in Left Ureter, Via Natural or Artificial Opening Endoscopic (ICD-10-PCS; principal; 2017-12-07)
PROC: 0TF48ZZ Fragmentation in Left Kidney Pelvis, Via Natural or Artificial Opening Endoscopic (ICD-10-PCS; principal; 2017-12-07)
DX: N20.2 Calculus of kidney with calculus of ureter (principal); F31.9 Bipolar disorder, unspecified; F42.9 Obsessive-compulsive disorder, unspecified; Z79.899 Other long term (current) drug therapy; Z91.030 Bee allergy status; Z98.890 Other specified postprocedural states
CPT/HCPCS: 74420; 96374; 96375; C1758; J1956; J2250; J2270; J2550; J3010; Q9961

== ENCOUNTER 2017-12-10 23:45 | Emergency (ER) | payer OTHER ==
[2017-12-11] MEDS ORDERED: Ketorolac Tromethamine 30 MG/ML VIAL ONE (00:10)
[2017-12-11] MEDS ORDERED: Ondansetron HCl/PF 4 MG/2 ML Vial ONE (00:10)
[2017-12-11] MEDS ORDERED: Fentanyl 100 MCG/2 ML VIAL ONE (00:10)
[2017-12-11 00:36] LABS: #Basophils 0.1 thou/uL (0.0-0.2); #Eosinphils 0.2 thou/uL (0.0-0.7); #Lymphocytes 2.7 thou/uL (1.20-3.40); #Neutrophils 4.9 thou/uL (1.40-6.50); %Eosinophils 2.1 % (0.0-10.0); %Lymphocytes 30.7 % (21.0-51.0); %Monocytes 10.8 % (0.0-10.0); %Neutrophils 55.4 % (42.0-75.0); Hemoglobin 13.8 g/dL (14.0-18.0); Mean Corpuscular HGB CONC 33.4 g/dL (32.0-36.0); Mean Corpuscular Hemoglobin 28.3 pg (27.0-31.0); Mean Corpuscular Volume 84.9 fL (78.0-98.0); Mean Platelet Volume 7.8 fL (7.4-10.4); Platelet Count 328 thou/uL (130-400); RBC Distribution Width 13.9 % (11.5-14.5); Red Blood Cell (RBC) Count 4.87 mill/uL (4.70-6.10); White Blood Cell (WBC) Count 8.9 thou/uL (4.8-10.8)
[2017-12-11 00:53] LABS: ALT (SGPT) 20 U/L (8-55); AST (SGOT) 22 U/L (5-34); Albumin 4.3 g/dL (3.5-5.0); Alkaline Phosphatase 96 U/L (40-150); Anion Gap 15 mmol/L (10-20); BUN (Urea Nitrogen) 10 mg/dL (8.9-20.6); Bilirubin, Total 0.5 mg/dL (0.2-1.2); Calc. Creatinine Clearance 0 mL/min (70-130); Calcium 9.1 mg/dL (7.8-10.44); Carbon Dioxide 17 mmol/L (22-29); Chloride 108 mmol/L (98-107); Estimated GFR-MDRD 70; Globulin 3.3 g/dL (2.4-3.5); Glucose 89 mg/dL (70-105); Lipase 21 U/L (8-78); Potassium 3.6 mmol/L (3.5-5.1); Protein, Total 7.6 g/dL (6.0-8.3); Sodium 136 mmol/L (136-145)
[2017-12-11 04:34] LABS: Bilirubin Negative (Negative); Blood, Urine Large (Negative); Clarity CLOUDY (Clear); Glucose, Urine (Dipstick) Negative (Negative); Leukocyte Large (Negative); Nitrite Negative (Negative); Protein, Urine (Dipstick) 30 mg/dL (Neg-Trace); Specific Gravity, Urine 1.005 (1.002-1.036); Urobilinogen 0.2 mg/dL (0.2-1.0); pH, Urine 6.5 (5.0-9.0)
[2017-12-11 04:36] LABS: Bacteria/HPF None Seen HPF (None Seen); Hyaline Casts/LPF 0-3 HYALINE CAST LPF (0-3 Hyaline); Pathc Cast-AUWi Flag 0.14 (0-2.49); RBC/HPF GREATER THAN 50-TNTC HPF (0-3); Squamous Epithelial 0-3 HPF (0-3)
[2017-12-11 04:45] LABS: Renal Epithelial None Seen HPF (0-3); Transitional Epithelial NONE SEEN HPF (0-3)
--- NOTE | 2017-12-11 08:04 | CT ---
PRELIMINARY REPORT/[facility]/EMERGENCY AFTER HOURS PROCEDURE: EXAM: CT Abdomen and Pelvis Without Intravenous Contrast EXAM DATE/TIME: 12/11/2017 12:29 AM CLINICAL HISTORY: 22 years old, male; Pain; Abdominal pain; Generalized; Patient HX: Renal colic with HX of kidney ston es TECHNIQUE: Axial computed tomography images of the abdomen and pelvis without intravenous contrast. Coronal refo rmatted images were created and reviewed. COMPARISON: CT Stone Protocol 11/13/2017 5:01 AM FINDINGS: Lower thorax: There is subpleural atelectasis of the dependent portions of the lungs. There is a smal l pericardial fluid collection present. ABDOMEN: Liver: The liver is within normal limits for this noncontrast study. Gallbladder and bile ducts: The gallbladder is normal. There is no evidence of biliary ductal dilatio n. Pancreas: The pancreas appears normal. Spleen: The spleen is normal. Adrenals: Normal. No mass. Kidneys and ureters: There are bilateral renal pelvic calculi measuring up to 13 mm in the RIGHT oliver l pelvis. There is a left double-J ureteral stent with its coiled ends appropriately positioned in th e left collecting system and bladder. There is mild foreshortening of the RIGHT double-J ureteral drea nt with proximal tip uncoiled but present within the RIGHT lower pole of the RIGHT kidney, surrounded by numerous renal calculi/calcifications. Mild hydronephrosis is present. Stomach and bowel: The stomach is normal. The duodenum is unremarkable. There is mild nonspecific thi ckening of the rectum. Appendix: A normal appendix is identified. PELVIS: Bladder: Unremarkable as visualized. Reproductive: Unremarkable as visualized. ABDOMEN and PELVIS: Intraperitoneal space: Normal. No free air. No significant fluid collection. Bones/joints: No acute fracture. No dislocation. Soft tissues: Unremarkable. Vasculature: Normal. No abdominal aortic aneurysm. Lymph nodes: Normal. No enlarged lymph nodes. IMPRESSION: There is mild foreshortening of the RIGHT double-J ureteral stent with proximal tip uncoiled but pres ent within the RIGHT lower pole of the RIGHT kidney, surrounded by numerous renal calculi/calcificati ons. Mild hydronephrosis is present. LEFT ureteral stent in satisfactory position. Thank you for allowing us to participate in the care of your patient. Dictated and Authenticated by: Juan Diego Stevenson MD 12/11/2017 1:48 AM Central Time ([place] & [place]) FINAL REPORT CT ABDOMEN AND PELVIS WITHOUT CONTRAST: Date: 12/10/17 HISTORY: Renal colic. Bilateral ureteral stents. COMPARISON: 11/26/17. FINDINGS: There are bilateral double pigtail ureteral stents, which are appropriately positioned. The right tess ble pigtail stent is in the lower pole of the right kidney. The left double pigtail stent is in the u pper pole of the left kidney. The position of the right ureteral stent has changed from the upper eder e of the right kidney now to the lower pole. There is stable mild dilatation of the right intrarenal collecting system. The left intrarenal collecting system continues to be decompressed. Bilateral oliver l calculi are noted. IMPRESSION: Left and right ureteral stents as above. Associated and essentially stable hydronephrosis as describe d above. This report is in agreement with the preliminary report by Darcy. POS: [facility]
== END 2017-12-11 04:39 | disposition home or self-care (01) ==
LOC: ERS 23:45
DX: N13.2 Hydronephrosis with renal and ureteral calculous obstruction (principal); K21.9 Gastro-esophageal reflux disease without esophagitis; F31.9 Bipolar disorder, unspecified; F41.9 Anxiety disorder, unspecified; F42.9 Obsessive-compulsive disorder, unspecified; F17.210 Nicotine dependence, cigarettes, uncomplicated; Z79.899 Other long term (current) drug therapy
CPT/HCPCS: 74176; 80053; 81003; 81015; 83690; 85025; 87086; 96361; 96374; 96375; J1885; J2405; J3010

== ENCOUNTER 2017-12-13 01:13 | Emergency (ER) | payer OTHER ==
[2017-12-13] MEDS ORDERED: Fentanyl 100 MCG/2 ML VIAL ONE (02:34)
[2017-12-13] MEDS ORDERED: Lorazepam 2 MG/ML VIAL ONE (02:34)
[2017-12-13] MEDS ORDERED: Ketorolac Tromethamine 30 MG/ML VIAL ONE (02:35)
[2017-12-13 02:40] LABS: #Basophils 0.1 thou/uL (0.0-0.2); #Eosinphils 0.3 thou/uL (0.0-0.7); #Lymphocytes 3.1 thou/uL (1.20-3.40); #Monocytes 0.8 thou/uL (0.11-0.59); #Neutrophils 3.9 thou/uL (1.40-6.50); %Basophils 0.6 % (0.0-1.0); %Eosinophils 3.2 % (0.0-10.0); %Lymphocytes 37.8 % (21.0-51.0); %Monocytes 9.9 % (0.0-10.0); %Neutrophils 48.4 % (42.0-75.0); Hemoglobin 12.8 g/dL (14.0-18.0); Mean Corpuscular HGB CONC 32.7 g/dL (32.0-36.0); Mean Corpuscular Hemoglobin 28.4 pg (27.0-31.0); Mean Corpuscular Volume 86.8 fL (78.0-98.0); Mean Platelet Volume 7.7 fL (7.4-10.4); Platelet Count 326 thou/uL (130-400); RBC Distribution Width 14.1 % (11.5-14.5); Red Blood Cell (RBC) Count 4.51 mill/uL (4.70-6.10); White Blood Cell (WBC) Count 8.1 thou/uL (4.8-10.8)
[2017-12-13 02:50] LABS: Anion Gap 12 mmol/L (10-20); BUN (Urea Nitrogen) 9 mg/dL (8.9-20.6); Calc. Creatinine Clearance 0 mL/min (70-130); Calcium 8.2 mg/dL (7.8-10.44); Carbon Dioxide 16 mmol/L (22-29); Chloride 113 mmol/L (98-107); Estimated GFR-MDRD Greater than 90; Glucose 85 mg/dL (70-105); Lipase 19 U/L (8-78); Potassium 3.6 mmol/L (3.5-5.1); Sodium 137 mmol/L (136-145)
[2017-12-13] MEDS ORDERED: Ondansetron HCl/PF 4 MG/2 ML Vial ONE (02:50)
[2017-12-13 04:39] LABS: Bilirubin Negative (Negative); Blood, Urine Large (Negative); Clarity CLOUDY (Clear); Glucose, Urine (Dipstick) Negative (Negative); Leukocyte Large (Negative); Nitrite Negative (Negative); Protein, Urine (Dipstick) 100 mg/dL (Neg-Trace); Specific Gravity, Urine 1.009 (1.002-1.036); Urobilinogen 0.2 mg/dL (0.2-1.0); pH, Urine 6.5 (5.0-9.0)
[2017-12-13 04:41] LABS: Bacteria/HPF None Seen HPF (None Seen); Hyaline Casts/LPF 7-10 HYALINE CAST LPF (0-3 Hyaline); Pathc Cast-AUWi Flag 1.88 (0-2.49)
== END 2017-12-13 06:00 | disposition home or self-care (01) ==
LOC: ERS 01:13
DX: N23 Unspecified renal colic (principal); K21.9 Gastro-esophageal reflux disease without esophagitis; F41.9 Anxiety disorder, unspecified; F31.9 Bipolar disorder, unspecified; F42.9 Obsessive-compulsive disorder, unspecified; F17.210 Nicotine dependence, cigarettes, uncomplicated; Z79.899 Other long term (current) drug therapy
CPT/HCPCS: 80048; 81003; 81015; 83690; 85025; 87086; 96361; 96374; 96375; 99406; J1885; J2060; J2405; J3010

== ENCOUNTER 2017-12-14 08:16 | Day surgery (SDC) | payer OTHER ==
[2017-12-13 12:36] VITALS: BMI 48.2
[2017-12-14 08:50] LABS: Platelet Count 262 thou/uL (130-400)
[2017-12-14] MEDS ORDERED: Ondansetron HCl/PF 4 MG/2 ML Vial ONE (09:48)
[2017-12-14] MEDS ORDERED: PROPOFOL 200 MG/20 ML VIAL ONE (09:48)
[2017-12-14] MEDS ORDERED: PHENYLEPHRINE-NS 100 MCG/ML 10 ML SYRINGE ONE (09:48)
[2017-12-14] MEDS ORDERED: Succinylcholine Chloride 20 MG/ML 10 ml SYRINGE FS ONE (09:48)
[2017-12-14] MEDS ORDERED: Dexamethasone 20 MG/5 ML VIAL ONE (09:48)
[2017-12-14] MEDS ORDERED: Iothalamate Meglumine 60% 50 ML VIAL FS ONE (10:38)
[2017-12-14] MEDS ORDERED: Ferric Subsulfate 8 ML BOT ONE (10:40)
[2017-12-14] MEDS ORDERED: Fentanyl 100 MCG/2 ML VIAL ONE (10:44)
[2017-12-14] MEDS ORDERED: cefTRIAXone\\ROCEPHIN 1 GM VIAL ONE (11:07)
[2017-12-14] MEDS ORDERED: Meperidine HCl/PF 25 MG/ML VIAL ONE (12:55)
--- NOTE | 2017-12-14 17:18 | OP ---
DATE OF PROCEDURE: 12/14/2017 PREOPERATIVE DIAGNOSES: Right renal pelvic stone and bilateral ureteral stents. POSTOPERATIVE DIAGNOSES: Right renal pelvic stone and bilateral ureteral stents. PROCEDURES PERFORMED: Right renal ESWL, cystoscopy, and exchange of bilateral stents. SURGEON: Francisco Mitchell M.D. ANESTHESIA: General. ESTIMATED BLOOD LOSS: Not recorded. FINDINGS: He already started to calcify the right ureteral stent, the left was not. There was 1.3 c m stone treated with 2500 shocks at maximum K level of 5, about 1000 was done at level 5, the other 1 500 at level 4, did appear to change its shape. Because of his tendency to quickly calcify stents, w e exchanged these 2 stents he had in and replaced with 6 x 24 double-J stents without any strings att ached. OPERATIVE TECHNIQUE: After obtaining written and verbal consent from the patient and after documenti ng normal preoperative platelet function assay, he was taken to the operating suite. He was placed i n supine position on the treatment table. PlexiPulses were placed on his lower extremities and turne d on. He was given a general anesthetic, oral intubation. He was coupled to the lithotripsy unit. The stone was placed in treatment focal point and shockwave therapy was commenced at a low kV and a r ate of 60. After a couple of 100 shocks, a 5 minute pause was given. The rate was then increased to 80 and then after about 1500 shocks, the kV was increased to 5. They stone did appear to state arevalo ge its shape. At the end of this part of the procedure, after 2500 shocks were completed, he was jyoti codie in the dorsal lithotomy position and sterilely prepped and draped. Cystoscopy was performed with a 20-Maldivian sheath. This was well lubricated and passed under direct vision through the male urethr a into the bladder. The bladder was filled and emptied. The right double-J stent was grasped and br ought out through the urethral meatus. A guidewire was fed up through this. This guidewire was back loaded through the cystoscope. The cystoscope was replaced and a 5-Maldivian Pollack catheter was passe d over this up to the area of the renal pelvis. The wire was removed and contrast was injected filli ng out the collecting system. The guidewires were placed going up into the upper pole calyceal syste m and opened catheter was removed, and the stent was brought in and passed over the guidewire, pushin g up into place with aid of a pusher so its proximal end coiled in the renal caliceal system above th e renal pelvic stone and its distal end coiled in the bladder. The left side, we exchanged in the sa me manner. At this point, the instruments were removed. He was awakened and extubated and taken by stretcher to the recovery room.
== END 2017-12-14 14:07 | disposition home or self-care (01) ==
LOC: SDC 08:16
PROVIDERS: ATTEND Urology
PROC: 0T788DZ Dilation of Bilateral Ureters with Intraluminal Device, Via Natural or Artificial Opening Endoscopic (ICD-10-PCS; principal; 2017-12-14)
PROC: 0TF3XZZ Fragmentation in Right Kidney Pelvis, External Approach (ICD-10-PCS; principal; 2017-12-14)
DX: N20.0 Calculus of kidney (principal); K21.9 Gastro-esophageal reflux disease without esophagitis; I10 Essential (primary) hypertension; Z91.030 Bee allergy status; Z79.899 Other long term (current) drug therapy
CPT/HCPCS: 85576; 96374; J0696; J1100; J2175; J2405; J2704; J3010; Q9961

== ENCOUNTER 2017-12-20 13:37 | Outpatient (CLI) | payer OTHER | END 2017-12-20 13:38 | disposition home or self-care (01) | LOC: BICRAD 13:37 | PROVIDERS: ATTEND Urology | DX: N20.0 Calculus of kidney (principal); Z96.0 Presence of urogenital implants | CPT/HCPCS: 74018 ==

== ENCOUNTER 2017-12-20 20:51 | Emergency (ER) | payer OTHER ==
[2017-12-20 21:56] LABS: Anion Gap 13 mmol/L (10-20); BUN (Urea Nitrogen) 18 mg/dL (8.9-20.6); CK (CPK) 32 U/L (30-200); Calc. Creatinine Clearance 0 mL/min (70-130); Carbon Dioxide 18 mmol/L (22-29); Chloride 108 mmol/L (98-107); Estimated GFR-MDRD 82; Glucose 98 mg/dL (70-105); Magnesium 2.1 mg/dL (1.6-2.6); Potassium 3.7 mmol/L (3.5-5.1); Sodium 135 mmol/L (136-145)
== END 2017-12-20 22:26 | disposition home or self-care (01) ==
LOC: ERS 20:51
DX: M79.1 Myalgia (principal); K21.9 Gastro-esophageal reflux disease without esophagitis; F31.9 Bipolar disorder, unspecified; F41.9 Anxiety disorder, unspecified; F42.9 Obsessive-compulsive disorder, unspecified; F17.210 Nicotine dependence, cigarettes, uncomplicated; Z79.899 Other long term (current) drug therapy
CPT/HCPCS: 36415; 74018; 80048; 82550; 83735; 84100; 99284

== ENCOUNTER 2017-12-28 05:51 | Day surgery (SDC) | payer OTHER ==
[2017-12-27 14:12] VITALS: BMI 46.5
[2017-12-28] MEDS ORDERED: Fentanyl 100 MCG/2 ML VIAL ONE (06:44)
[2017-12-28] MEDS ORDERED: Iothalamate Meglumine 60% 50 ML VIAL FS ONE (07:03)
[2017-12-28] MEDS ORDERED: Sodium Chloride 0.9% 100 ML ONE (07:21)
[2017-12-28] MEDS ORDERED: cefTRIAXone\\ROCEPHIN 1 GM VIAL ONE (07:21)
[2017-12-28] MEDS ORDERED: Lidocaine 4% Topical Sol 50 ML BOT ONE (07:31)
[2017-12-28] MEDS ORDERED: Midazolam HCl 2 mg/2 ml Vial ONE (07:32)
[2017-12-28] MEDS ORDERED: PHENYLEPHRINE-NS 100 MCG/ML 10 ML SYRINGE ONE ×2 (08:39→11:19)
[2017-12-28] MEDS ORDERED: EPINEPHrine 1 MG/ML AMP ONE (08:39)
[2017-12-28] MEDS ORDERED: ePHEDrine/0.9% NaCl/PF SYRINGE 50 mg/10 ml ONE ×2 (08:40→11:19)
--- NOTE | 2017-12-28 11:00 | OP ---
DATE OF PROCEDURE: 12/28/2017 PREOPERATIVE DIAGNOSIS: Right renal pelvic stones and bilateral ureteral stents. POSTOPERATIVE DIAGNOSIS: Right renal pelvic stones and bilateral ureteral stents. PROCEDURE PERFORMED: Right extracorporeal shock wave lithotripsy, cystoscopy, removal of left stent with left retrograde and removal and replacement of right stent. SURGEON: Dr. Francisco Mitchell. ANESTHETIC: General. ESTIMATED BLOOD LOSS: Not recorded. FINDINGS: There is over 1 cm stone fragments in the right renal pelvis that were treated with 2500 s hocks at maximum kV level of 5, about 1500 shocks at level 4 and 1000 shocks at level 5, rate at lev el 4 was 60, rate at level 5 was 80 per minute. The stone did appear to fragment well. The left drea nt was removed. A left retrograde showed no evidence of obstruction to the left ureter, right stent was removed and a new stent was placed on that side, a 6 x 24 Polaris double-J stent without a string . OPERATIVE TECHNIQUE: Obtained written and verbal consent from the patient after receiving Rocephin, he was taken to the operating suite. He was placed in supine position on the treatment table. Plexi Pulses were placed on his lower extremities and turned on. He was given a general anesthetic, oral o bturator intubation. He was then coupled to the lithotripsy unit. The stones in the renal pelvis we re visualized and were placed in the treatment focal point. Shockwave therapy was commenced at a candelaria y low kV in rate and after a couple 100 shocks, a pause was given for a few minutes and we increased the rate to 60 and increased the level of the 4 and then when we had about 1000 shocks left, we incre ased the rate to 80 and we increased the level to 5. It did appear like the majority of the stone fr agments in the renal pelvis did break up. At this point, he was placed in the dorsal lithotomy posit ion and sterilely prepped and draped. Cystoscopy was performed with a 22-Ugandan sheath. This was we ll lubricated, passed under direct vision through the male urethra into the urinary bladder with aid of a 30-degree lens and video camera and monitor. The bladder was filled and emptied a number of kristin es. The distal end of the left double-J stent was grasped and was removed intact. A 5-Ugandan Pollac k catheter was then advanced up into the left ureter and then contrast about 15 mL were injected in a retrograde manner to fill out the upper collecting system which was mildly dilated in the renal pelv is. There was no evidence of any obstruction along the course of the ureter and looking endoscopical ly, the ureter effluxes contrast without difficulty. We then removed the right double-J stent, passe d a 0.038 guidewire up that side, passed a 5-Ugandan Pollack catheter over it, removed the guidewire a nd injected some contrast to fill out the renal pelvis and then replaced the guidewire and removed th e open-ended catheter and placed a 6 x 24 Polaris double-J stent over the guidewire, pushing up into place, so its proximal end coiled in the renal pelvis and its distal end coiled in the bladder when t he wire was removed. At this point, the bladder straining instruments were removed. He was taken ou t of dorsal lithotomy position, awakened, extubated, and taken by stretcher to the recovery room.
[2017-12-28] MEDS ORDERED: Ondansetron HCl/PF 4 MG/2 ML Vial ONE (11:19)
[2017-12-28] MEDS ORDERED: PROPOFOL 200 MG/20 ML VIAL ONE (11:19)
[2017-12-28] MEDS ORDERED: Lidocaine 1% PF 5 ML VIAL ONE (11:19)
[2017-12-28] MEDS ORDERED: Dexamethasone 20 MG/5 ML VIAL ONE (11:19)
== END 2017-12-28 10:43 | disposition home or self-care (01) ==
LOC: SDC 05:51
PROVIDERS: ATTEND Urology
PROC: 0TF3XZZ Fragmentation in Right Kidney Pelvis, External Approach (ICD-10-PCS; principal; 2017-12-28)
PROC: 0T778DZ Dilation of Left Ureter with Intraluminal Device, Via Natural or Artificial Opening Endoscopic (ICD-10-PCS; principal; 2017-12-28)
PROC: 0TP98DZ Removal of Intraluminal Device from Ureter, Via Natural or Artificial Opening Endoscopic (ICD-10-PCS; principal; 2017-12-28)
DX: N20.0 Calculus of kidney (principal); Z91.030 Bee allergy status
CPT/HCPCS: J0171; J0696; J1100; J2001; J2250; J2405; J2704; J3010; J7050; Q9961

== ENCOUNTER 2018-01-06 12:59 | Outpatient (CLI) | payer OTHER ==
--- NOTE | 2018-01-06 14:52 | RAD ---
KUB: COMPARISON: 11/30/2017. HISTORY: Renal stone. FINDINGS: A single view of the abdomen shows a nonspecific, nonobstructed bowel gas pattern. There is a right- side double-J ureteral stent. This appears in good position. There are calcifications projecting ov er the lower pole of both kidneys. The calcification on the right measures 1.7 cm in greatest dimens ion. The calcification on the left measures 1.1 cm in greatest dimension. No calcifications are see n along the stent. IMPRESSION: Bilateral nephrolithiasis. POS: [facility]
== END 2018-01-06 13:00 | disposition home or self-care (01) ==
LOC: BICRAD 12:59
PROVIDERS: ATTEND Urology
DX: N20.1 Calculus of ureter (principal); N20.0 Calculus of kidney
CPT/HCPCS: 74018

== ENCOUNTER 2018-01-08 18:19 | Emergency (ER) | payer OTHER ==
[2018-01-08 19:03] LABS: Bilirubin Negative (Negative); Blood, Urine Moderate (Negative); Clarity CLOUDY (Clear); Glucose, Urine (Dipstick) Negative (Negative); Leukocyte Large (Negative); Nitrite Negative (Negative); Protein, Urine (Dipstick) 100 mg/dL (Neg-Trace); Specific Gravity, Urine 1.019 (1.002-1.036)
[2018-01-08 19:05] LABS: Bacteria/HPF None Seen HPF (None Seen); Pathc Cast-AUWi Flag 2.47 (0-2.49); RBC/HPF 21-50 HPF (0-3); Squamous Epithelial 0-3 HPF (0-3)
[2018-01-08 19:10] LABS: Hyaline Casts/LPF 0-3 HYALINE CAST LPF (0-3 Hyaline)
[2018-01-08 19:13] LABS: Amphetamine Not Detected (NotDetected); Barbiturates Screen Not Detected (NotDetected); Benzodiazepine Screen Detected (NotDetected); Cocaine Metabolite Screen Not Detected (NotDetected); Medtox Control Line Valid? VALID (VALID); Medtox Reader # READER 1; Methadone Not Detected (NotDetected); Methamphetamine Not Detected (NotDetected); Opiate Screen Not Detected (NotDetected); Oxycodone Screen Not Detected (NotDetected); Phencyclidine (PCP) Not Detected (NotDetected); THC/Cannabinoid Screen Not Detected (NotDetected); Tricyclic Screen Not Detected (NotDetected)
--- NOTE | 2018-01-08 19:40 | CT ---
CT OF BRAIN PERFORMED WITHOUT CONTRAST ENHANCEMENT: History: Seizure. FINDINGS: The ventricular and cisternal system is within normal limits. There are no signs of intracerebral hem orrhage or extraaxial fluid collections. The mastoid air cells and visualized sinuses are clear. IMPRESSION: No acute intracranial abnormality. POS: [facility]
[2018-01-08 19:41] LABS: #Basophils 0.1 thou/uL (0.0-0.2); #Eosinphils 0.1 thou/uL (0.0-0.7); #Lymphocytes 2.6 thou/uL (1.20-3.40); #Monocytes 1.1 thou/uL (0.11-0.59); #Neutrophils 8.8 thou/uL (1.40-6.50); %Basophils 0.7 % (0.0-1.0); %Eosinophils 1.1 % (0.0-10.0); %Lymphocytes 20.4 % (21.0-51.0); %Monocytes 8.9 % (0.0-10.0); Hemoglobin 13.3 g/dL (14.0-18.0); Mean Corpuscular HGB CONC 32.6 g/dL (32.0-36.0); Mean Corpuscular Hemoglobin 27.8 pg (27.0-31.0); Mean Corpuscular Volume 85.2 fL (78.0-98.0); Mean Platelet Volume 7.5 fL (7.4-10.4); Platelet Count 310 thou/uL (130-400); RBC Distribution Width 14.1 % (11.5-14.5); White Blood Cell (WBC) Count 12.7 thou/uL (4.8-10.8)
[2018-01-08 20:02] LABS: ALT (SGPT) 22 U/L (8-55); AST (SGOT) 15 U/L (5-34); Albumin 3.8 g/dL (3.5-5.0); Alkaline Phosphatase 104 U/L (40-150); Anion Gap 12 mmol/L (10-20); BUN (Urea Nitrogen) 13 mg/dL (8.9-20.6); Bilirubin, Total 0.4 mg/dL (0.2-1.2); Calc. Creatinine Clearance 0 mL/min (70-130); Calcium 8.6 mg/dL (7.8-10.44); Carbon Dioxide 18 mmol/L (22-29); Chloride 108 mmol/L (98-107); Estimated GFR-MDRD 79; Glucose 114 mg/dL (70-105); Protein, Total 6.8 g/dL (6.0-8.3); Sodium 135 mmol/L (136-145)
[2018-01-08 20:06] LABS: Potassium 2.9 mmol/L (3.5-5.1)
[2018-01-08] MEDS ORDERED: Acetaminophen 500 MG TAB ONE (20:35)
== END 2018-01-08 20:31 | disposition home or self-care (01) ==
LOC: ERS 18:19
DX: E87.6 Hypokalemia (principal); K21.9 Gastro-esophageal reflux disease without esophagitis; G93.2 Benign intracranial hypertension; F41.9 Anxiety disorder, unspecified; F31.9 Bipolar disorder, unspecified; F42.9 Obsessive-compulsive disorder, unspecified; F17.210 Nicotine dependence, cigarettes, uncomplicated; Z79.899 Other long term (current) drug therapy
CPT/HCPCS: 36415; 51701; 70450; 80053; 80306; 81003; 81015; 84146; 85025; 87086; 93005

== ENCOUNTER 2018-01-13 08:56 | Day surgery (SDC) | payer OTHER ==
[2018-01-12 10:44] VITALS: BMI 46.5
[2018-01-13] MEDS ORDERED: Iothalamate Meglumine 60% 50 ML VIAL FS ONE (10:07)
[2018-01-13 10:14] LABS: Anion Gap 9 mmol/L (10-20); BUN (Urea Nitrogen) 16 mg/dL (8.9-20.6); Calc. Creatinine Clearance 213 mL/min (70-130); Calcium 8.4 mg/dL (7.8-10.44); Carbon Dioxide 20 mmol/L (22-29); Chloride 112 mmol/L (98-107); Estimated GFR-MDRD Greater than 90; Glucose 100 mg/dL (70-105); Potassium 3.9 mmol/L (3.5-5.1); Sodium 137 mmol/L (136-145)
[2018-01-13] MEDS ORDERED: cefTRIAXone\\ROCEPHIN 2 GM in Sodium Chloride 0.9% 100 ML IVPB SCH (10:45)
[2018-01-13] MEDS ORDERED: Fentanyl 100 MCG/2 ML VIAL ONE (11:09)
--- NOTE | 2018-01-13 14:09 | RAD ---
RETROGRADE URETEROGRAM INTRAOPERATIVE FLUOROSCOPY: HISTORY: Retrograde study. FINDINGS: Intraoperative fluoroscopy is provided for retrograde study as performed by Dr. Mitchell. Multiple spo t fluoroscopic images show double pigtail catheter over the course of the right ureter. There is cat heterization and contrast opacification of dilated right renal collecting system. No filling defects are reliably demonstrated. POS: [facility]
[2018-01-13] MEDS ORDERED: HYDROcodone/Acetaminophen 5/325 mg Tablet ONE (14:24)
[2018-01-13] MEDS ORDERED: Lidocaine 1% PF 5 ML VIAL ONE (14:38)
[2018-01-13] MEDS ORDERED: Glycopyrrolate 0.2 MG/ML 5 ML SYRINGE ONE (14:38)
[2018-01-13] MEDS ORDERED: Ondansetron HCl/PF 4 MG/2 ML Vial ONE (14:38)
[2018-01-13] MEDS ORDERED: PROPOFOL 200 MG/20 ML VIAL ONE (14:38)
--- NOTE | 2018-01-13 21:18 | OP ---
DATE OF PROCEDURE: 01/13/2018 PREOPERATIVE DIAGNOSIS: Right renal stones. POSTOPERATIVE DIAGNOSIS: Right renal stones. PROCEDURES PERFORMED: Cystoscopy, laser lithotripsy, stone retrieval and extraction, and stent repla cement. SURGEON: Dr. Francisco Mitchell. ANESTHETIC: General. ESTIMATED BLOOD LOSS: Not recorded, but that probably is in the 50-75 mL range. DRAINS PLACED: A 6 Citizen Of [place] x 24 double-J stent with a string attached exiting the urethral meatus. FINDINGS: He had numerous small and slightly larger stone fragments in his right mid and lower pole collecting system from prior ESWL with fairly large right renal pelvic stone. We used a laser fiber to break up some of the larger ones and we used nitinol basket to retrieve as many of these fragments as we could. It was felt like at the end we got the majority of these removed. He has some stone f ragments in the proximal ureter. He does have an area where the proximal ureter is in slightly narro wed, although it does not look like a stricture just some edematous mucosa. It may be were stone was a few weeks ago that we had treated and the fragments may have been remaining there from that shockw ave. OPERATIVE TECHNIQUE: Obtained written and verbal consent from the patient. After receiving IV antib iotics, he was taken to the operating suite. He was placed in the supine position on the treatment t able. PlexiPulses were placed on his lower extremities and turned on. He was given a general anesth etic, oral intubation and was then placed in the dorsal lithotomy position, sterilely prepped and consuelo ped. Fluoroscopy unit was positioned to allow imaging. Cystoscopy was performed with a 20-Citizen [place] sh eath. This was well lubricated, passed under direct vision through the male urethra into the urinary bladder. The bladder was filled and emptied number of times for numerous small stone fragments on t he floor of the bladder. The distal end of the double-J stent was grasped and brought out through th e urethral meatus. A guidewire was fed up through it and the catheter and the double-J stent was rem nelly and discarded. Dual lumen ureteral catheter was then passed over this guidewire and a SuperStif f blue wire was passed through the empty port up into the renal pelvis and the dual-lumen catheter wa s removed. A moderate size ureteral sheath with obturator brought in and passed up as far as it did go up into the proximal ureter. The obturator was removed leaving the guidewire in place. We then b rought in our flexible ureteroscope. The one we used was the disposable one. We placed over the jordan dewire and pushed up over the guidewire to the region of the renal pelvis. The guidewire was removed . We then brought in a small caliber Holmium laser fiber and explored the middle and lower pole daryn ceal system using the laser fiber to break up some of the larger of the pieces that were there. None of that make into quite small pieces. We then brought in a nitinol basket making multiple passes re moving stone fragments. There were some fragments noted in the proximal third of the right ureter th at was also removed. Once we had removed any fragments that appeared to be of potential size be a cheryl ther to the patient, we removed under direct vision the ureteral sheath leaving our second guidewire still in place. We then went ahead and backloaded this guidewire through the 20-Citizen [place] cystoscope an d passed this back into the bladder, fed a 5-Citizen [place] Pollack catheter up over it into the renal pelvis , removed the guidewire and injected contrast. There was no evidence of any extravasation in the upp er, mid or lower ureter or the collecting system. The guidewire was replaced. The open-ended cathet er was removed. A stent was placed over the guidewire and pushed up into place with aid of a pusher, so its proximal end coiled in the renal pelvis and its distal end coiled in the bladder when the wir e was removed. The patient at this point was awakened and extubated and taken by stretcher to the re covery room.
== END 2018-01-13 15:01 | disposition home or self-care (01) ==
LOC: SDC 08:56
PROVIDERS: ATTEND Urology
PROC: 0T768DZ Dilation of Right Ureter with Intraluminal Device, Via Natural or Artificial Opening Endoscopic (ICD-10-PCS; principal; 2018-01-13)
PROC: 0TF38ZZ Fragmentation in Right Kidney Pelvis, Via Natural or Artificial Opening Endoscopic (ICD-10-PCS; principal; 2018-01-13)
DX: N20.0 Calculus of kidney (principal); I10 Essential (primary) hypertension; F98.8 Other specified behavioral and emotional disorders with onset usually occurring in childhood and adolescence; Z88.1 Allergy status to other antibiotic agents; Z91.030 Bee allergy status
CPT/HCPCS: 36415; 74420; 80048; C1758; J0696; J2001; J2405; J2704; J3010; J7050; Q9961

== ENCOUNTER 2018-01-19 13:00 | Emergency (ER) | payer OTHER ==
[2018-01-19] MEDS ORDERED: Ondansetron HCl/PF 4 MG/2 ML Vial ONE (14:05)
[2018-01-19] MEDS ORDERED: Ketorolac Tromethamine 30 MG/ML VIAL ONE (14:05)
[2018-01-19 14:16] LABS: #Basophils 0.1 thou/uL (0.0-0.2); #Eosinphils 0.1 thou/uL (0.0-0.7); #Lymphocytes 2.7 thou/uL (1.20-3.40); #Monocytes 1.4 thou/uL (0.11-0.59); #Neutrophils 7.7 thou/uL (1.40-6.50); %Basophils 0.5 % (0.0-1.0); %Eosinophils 0.8 % (0.0-10.0); %Lymphocytes 22.4 % (21.0-51.0); %Monocytes 11.9 % (0.0-10.0); %Neutrophils 64.4 % (42.0-75.0); Hemoglobin 12.7 g/dL (14.0-18.0); Mean Corpuscular HGB CONC 30.3 g/dL (32.0-36.0); Mean Corpuscular Hemoglobin 25.5 pg (27.0-31.0); Mean Corpuscular Volume 84.1 fL (78.0-98.0); Mean Platelet Volume 7.5 fL (7.4-10.4); Platelet Count 457 thou/uL (130-400); RBC Distribution Width 14.3 % (11.5-14.5); Red Blood Cell (RBC) Count 4.97 mill/uL (4.70-6.10)
[2018-01-19 14:21] LABS: Bilirubin Negative (Negative); Blood, Urine Negative (Negative); Clarity CLOUDY (Clear); Glucose, Urine (Dipstick) Negative (Negative); Leukocyte Moderate (Negative); Nitrite Negative (Negative); Protein, Urine (Dipstick) 30 mg/dL (Neg-Trace); Specific Gravity, Urine 1.016 (1.002-1.036)
[2018-01-19 14:23] LABS: Bacteria/HPF None Seen HPF (None Seen); Hyaline Casts/LPF 4-6 HYALINE CAST LPF (0-3 Hyaline); Pathc Cast-AUWi Flag 0.87 (0-2.49); Yeast-AUWi Flag 24.7 (0-25.0)
[2018-01-19 14:25] LABS: Renal Epithelial None Seen HPF (0-3); Transitional Epithelial NONE SEEN HPF (0-3)
[2018-01-19 14:31] LABS: Amphetamine Not Detected (NotDetected); Barbiturates Screen Not Detected (NotDetected); Benzodiazepine Screen Detected (NotDetected); Cocaine Metabolite Screen Not Detected (NotDetected); Medtox Control Line Valid? VALID (VALID); Medtox Reader # READER 1; Methadone Not Detected (NotDetected); Methamphetamine Not Detected (NotDetected); Opiate Screen Not Detected (NotDetected); Oxycodone Screen Not Detected (NotDetected); Phencyclidine (PCP) Not Detected (NotDetected); THC/Cannabinoid Screen Not Detected (NotDetected); Tricyclic Screen Not Detected (NotDetected)
[2018-01-19 14:40] LABS: ALT (SGPT) 16 U/L (8-55); AST (SGOT) 12 U/L (5-34); Acetaminophen Less than 6.0 mcg/mL (10.0-30.0); Albumin 3.8 g/dL (3.5-5.0); Alcohol Less than 10 mg/dL (Less than 10); Alkaline Phosphatase 110 U/L (40-150); Anion Gap 13 mmol/L (10-20); BUN (Urea Nitrogen) 12 mg/dL (8.9-20.6); Bilirubin, Total 0.5 mg/dL (0.2-1.2); Calc. Creatinine Clearance 0 mL/min (70-130); Calcium 9.4 mg/dL (7.8-10.44); Carbon Dioxide 19 mmol/L (22-29); Chloride 109 mmol/L (98-107); Estimated GFR-MDRD 77; Globulin 3.3 g/dL (2.4-3.5); Glucose 101 mg/dL (70-105); Potassium 3.5 mmol/L (3.5-5.1); Protein, Total 7.1 g/dL (6.0-8.3); Salicylate Less than 8.0 mg/dL (15.0-30.0); Sodium 137 mmol/L (136-145)
== END 2018-01-19 16:09 | disposition left against medical advice (07) ==
LOC: ERS 13:00
DX: R10.9 Unspecified abdominal pain (principal); K21.9 Gastro-esophageal reflux disease without esophagitis; F31.9 Bipolar disorder, unspecified; F41.9 Anxiety disorder, unspecified; F42.9 Obsessive-compulsive disorder, unspecified; F17.210 Nicotine dependence, cigarettes, uncomplicated; Z79.899 Other long term (current) drug therapy
CPT/HCPCS: 80053; 80306; 80307; 81003; 81015; 84443; 85025; 96374; 96375; J1885; J2405

== ENCOUNTER 2018-02-10 14:29 | Outpatient (CLI) | payer OTHER ==
--- NOTE | 2018-02-10 16:30 | RAD ---
KUB: Date: 02/10/18 INDICATION: Renal stones. COMPARISON: Prior study dated 01/06/18. FINDINGS: The previously seen 17.0 cm stone overlying the lower pole of the left kidney has been removed. There is a residual 5.0 mm stone seen within the lower pole of the right kidney. Right ureteral stent has been removed. The 8-9 mm stone involving the inferior pole of the left kidney is stable. No suspiciou s stone is seen overlying the expected course of the renal collecting system. No acute osseous abnorm ality is evident. IMPRESSION: 1. Suspected interval lithotripsy of the large right renal staghorn calculus. A 5.0 mm stone rem ains within the lower pole of the right kidney. 2. A 9.0 mm stone remains within the lower pole of the left kidney. This is stable since the gladys or exam. 3. Interval removal of right ureteral stent. POS: [facility]
== END 2018-02-10 14:30 | disposition home or self-care (01) ==
LOC: BICRAD 14:29
PROVIDERS: ATTEND Urology
DX: N20.0 Calculus of kidney (principal)
CPT/HCPCS: 74018

== ENCOUNTER 2018-02-11 17:01 | Emergency (ER) | payer OTHER ==
[2018-02-11 18:42] LABS: #Basophils 0.1 thou/uL (0.0-0.2); #Eosinphils 0.1 thou/uL (0.0-0.7); #Lymphocytes 2.7 thou/uL (1.20-3.40); #Monocytes 1.1 thou/uL (0.11-0.59); #Neutrophils 8.4 thou/uL (1.40-6.50); %Basophils 0.6 % (0.0-1.0); %Eosinophils 0.7 % (0.0-10.0); %Lymphocytes 21.7 % (21.0-51.0); Hemoglobin 14.2 g/dL (14.0-18.0); Mean Corpuscular HGB CONC 31.8 g/dL (32.0-36.0); Mean Corpuscular Hemoglobin 26.1 pg (27.0-31.0); Mean Corpuscular Volume 82.1 fL (78.0-98.0); Mean Platelet Volume 9.4 fL (7.4-10.4); Platelet Count 350 thou/uL (130-400); RBC Distribution Width 17.6 % (11.5-14.5); Red Blood Cell (RBC) Count 5.42 mill/uL (4.70-6.10); White Blood Cell (WBC) Count 12.3 thou/uL (4.8-10.8)
[2018-02-11 18:51] LABS: Bilirubin Negative (Negative); Blood, Urine Negative (Negative); Clarity CLOUDY (Clear); Glucose, Urine (Dipstick) Negative (Negative); Leukocyte Small (Negative); Nitrite Negative (Negative); Protein, Urine (Dipstick) 100 mg/dL (Neg-Trace); Specific Gravity, Urine 1.017 (1.002-1.036); pH, Urine 7.5 (5.0-9.0)
[2018-02-11 18:54] LABS: Bacteria/HPF None Seen HPF (None Seen); Hyaline Casts/LPF 0-3 HYALINE CAST LPF (0-3 Hyaline); Pathc Cast-AUWi Flag 0.43 (0-2.49); RBC/HPF 0-3 HPF (0-3); Squamous Epithelial 0-3 HPF (0-3)
[2018-02-11 19:05] LABS: Crystals/HPF None Seen HPF (Negative); Oval Fat Bodies/HPF None Seen HPF (None Seen); Renal Epithelial None Seen HPF (0-3); Transitional Epithelial NONE SEEN HPF (0-3); Trichomonas/HPF None Seen HPF (None Seen); Yeast-All Forms Rare HPF (None Seen)
[2018-02-11] MEDS ORDERED: Ketorolac Tromethamine 30 MG/ML VIAL ONE (19:05)
[2018-02-11 19:20] LABS: ALT (SGPT) 34 U/L (8-55); AST (SGOT) 20 U/L (5-34); Albumin 3.9 g/dL (3.5-5.0); Alkaline Phosphatase 107 U/L (40-150); Anion Gap 13 mmol/L (10-20); BUN (Urea Nitrogen) 10 mg/dL (8.9-20.6); Bilirubin, Total 0.5 mg/dL (0.2-1.2); Calc. Creatinine Clearance 0 mL/min (70-130); Calcium 9.2 mg/dL (7.8-10.44); Carbon Dioxide 20 mmol/L (22-29); Chloride 106 mmol/L (98-107); Estimated GFR-MDRD 67; Globulin 3.3 g/dL (2.4-3.5); Glucose 106 mg/dL (70-105); Potassium 3.3 mmol/L (3.5-5.1); Protein, Total 7.2 g/dL (6.0-8.3); Sodium 136 mmol/L (136-145)
== END 2018-02-11 20:00 | disposition home or self-care (01) ==
LOC: ERS 17:01
DX: N20.0 Calculus of kidney (principal); K21.9 Gastro-esophageal reflux disease without esophagitis; G93.2 Benign intracranial hypertension; F41.9 Anxiety disorder, unspecified; F31.9 Bipolar disorder, unspecified; F42.9 Obsessive-compulsive disorder, unspecified; Z87.442 Personal history of urinary calculi; F17.210 Nicotine dependence, cigarettes, uncomplicated; Z79.899 Other long term (current) drug therapy
CPT/HCPCS: 36415; 80053; 81003; 81015; 85025; 96361; 96374; J1885

== ENCOUNTER → 2018-02-28 | Day surgery (SDC) | payer OTHER ==
[2018-02-27 09:59] VITALS: BMI 46.5
[~2018-02-28] MED LIST changes: -Fentanyl 100 MCG/2 ML VIAL ONE; -Fentanyl 250 MCG/5 ML VIAL ONE; -Iothalamate Meglumine 60% 50 ML VIAL FS ONE; +Lidocaine 1% PF 5 ML VIAL ONE; +PROPOFOL 200 MG/20 ML VIAL ONE; -cefTRIAXone\\ROCEPHIN 2 GM in Sodium Chloride 0.9% 100 ML IVPB SCH
--- NOTE | 2018-02-28 17:53 | OP ---
DATE OF PROCEDURE: 02/28/2018 PROCEDURES PERFORMED: Esophagogastroduodenoscopy with esophageal dilation with a bougie dilator and biopsies of the esophagus, stomach, and duodenum. PREOPERATIVE DIAGNOSES: Chronic nausea and vomiting, dyspepsia, acid reflux and possible question of dysphagia. DESCRIPTION OF PROCEDURE: Informed consent was obtained from the patient. He was sedated with total intravenous anesthesia. The bite block was placed, and the endoscope was advanced easily to the second portion of the duodenum and retroflexion was performed on the stomach. The esophagus was normal. The GE junction was normal. The stomach was normal including retroflex views. The pylorus and first and second portions of the duodenum were normal. Biopsies were taken from the duodenum to rule out celiac disease. Biopsies were taken from the stomach to rule out H. pylori. Biopsies were taken from the esophagus to rule eosinophilic esophagitis. The esophagus was dilated empirically with a 54-Luxembourgish (18 mm) Eddy dilator. There was no effect on the esophagus on second-look endoscopy. IMPRESSION: 1. Normal esophagogastroduodenoscopy. 2. Esophagus dilated to 18 mm with a Eddy dilator. No change on second look. 3. Biopsies taken from the duodenum, stomach, and esophagus. RECOMMENDATIONS: 1. Await histopathology. 2. Follow up in the office in 4 weeks. 3. Consider gastric emptying scan if the biopsies are negative and he has no improvement with esophageal dilation. 4. Reassess the frequency of marijuana use at the time of office followup as cannabis hyperemesis has to be considered further as well. Job ID: [id number]
== END ==
LOC: SDC 07:46
PROVIDERS: ATTEND Internal Medicine Gastroenterology
PROC: 0DB98ZX Excision of Duodenum, Via Natural or Artificial Opening Endoscopic, Diagnostic (ICD-10-PCS; principal; 2018-02-28)
PROC: 0D757ZZ Dilation of Esophagus, Via Natural or Artificial Opening (ICD-10-PCS; principal; 2018-02-28)
PROC: 0DB68ZX Excision of Stomach, Via Natural or Artificial Opening Endoscopic, Diagnostic (ICD-10-PCS; principal; 2018-02-28)
PROC: 0DB58ZX Excision of Esophagus, Via Natural or Artificial Opening Endoscopic, Diagnostic (ICD-10-PCS; principal; 2018-02-28)
DX: K20.9 Esophagitis, unspecified (principal); K21.9 Gastro-esophageal reflux disease without esophagitis; R11.2 Nausea with vomiting, unspecified; F17.210 Nicotine dependence, cigarettes, uncomplicated; F90.9 Attention-deficit hyperactivity disorder, unspecified type; F41.9 Anxiety disorder, unspecified; F31.9 Bipolar disorder, unspecified; I10 Essential (primary) hypertension; E78.00 Pure hypercholesterolemia, unspecified; F95.2 Tourette's disorder; F42.9 Obsessive-compulsive disorder, unspecified; Z79.899 Other long term (current) drug therapy; Z88.1 Allergy status to other antibiotic agents; Z91.030 Bee allergy status
CPT/HCPCS: 88305; 88312; 88313; J2001; J2704

== ENCOUNTER 2018-04-29 03:15 | Emergency (ER) | payer OTHER ==
[2018-04-29 04:44] LABS: #Basophils 0.1 thou/uL (0.0-0.2); #Eosinphils 0.1 thou/uL (0.0-0.7); #Lymphocytes 2.5 thou/uL (1.20-3.40); #Monocytes 1.2 thou/uL (0.11-0.59); %Basophils 0.8 % (0.0-1.0); %Eosinophils 0.3 % (0.0-10.0); %Lymphocytes 15.9 % (21.0-51.0); %Monocytes 7.4 % (0.0-10.0); %Neutrophils 75.5 % (42.0-75.0); Hemoglobin 13.8 g/dL (14.0-18.0); Mean Corpuscular HGB CONC 31.7 g/dL (32.0-36.0); Mean Corpuscular Hemoglobin 25.4 pg (27.0-31.0); Mean Corpuscular Volume 80.2 fL (78.0-98.0); Mean Platelet Volume 7.7 fL (7.4-10.4); Platelet Count 399 thou/uL (130-400); RBC Distribution Width 15.4 % (11.5-14.5); Red Blood Cell (RBC) Count 5.41 mill/uL (4.70-6.10)
[2018-04-29] MEDS ORDERED: Ondansetron PF 4 MG/2 ML Vial ONE (04:46)
[2018-04-29] MEDS ORDERED: Haloperidol Lactate 5 MG/ML VIAL ONE (04:46)
[2018-04-29 05:04] LABS: ALT (SGPT) 18 U/L (8-55); AST (SGOT) 15 U/L (5-34); Albumin 4.2 g/dL (3.5-5.0); Alkaline Phosphatase 108 U/L (40-150); Anion Gap 12 mmol/L (10-20); BUN (Urea Nitrogen) 13 mg/dL (8.9-20.6); Bilirubin, Total 0.6 mg/dL (0.2-1.2); Calc. Creatinine Clearance 0 mL/min (70-130); Calcium 9.6 mg/dL (7.8-10.44); Carbon Dioxide 24 mmol/L (22-29); Chloride 104 mmol/L (98-107); Estimated GFR-MDRD 76; Globulin 3.2 g/dL (2.4-3.5); Glucose 113 mg/dL (70-105); Lipase 10 U/L (8-78); Protein, Total 7.4 g/dL (6.0-8.3); Sodium 137 mmol/L (136-145)
== END 2018-04-29 06:05 | disposition home or self-care (01) ==
LOC: ERS 03:15
DX: F12.188 Cannabis abuse with other cannabis-induced disorder (principal); K21.9 Gastro-esophageal reflux disease without esophagitis; F41.9 Anxiety disorder, unspecified; F32.9 Major depressive disorder, single episode, unspecified; F17.210 Nicotine dependence, cigarettes, uncomplicated; Z79.899 Other long term (current) drug therapy; Z79.891 Long term (current) use of opiate analgesic; Z87.442 Personal history of urinary calculi
CPT/HCPCS: 36415; 80053; 83690; 85025; 96361; 96374; 96375; J1630; J2405

== ENCOUNTER 2018-05-15 15:13 | Outpatient (CLI) | payer OTHER ==
--- NOTE | 2018-05-15 16:21 | RAD ---
ABDOMEN 1 VIEW: HISTORY: Renal calculus. COMPARISON: Radiograph 02/10/2018. FINDINGS: Calculi projecting in the left inferior renal collecting system on 02/10/2018 examination are no long er visualized. No calculi are seen projecting over the renal collecting systems nor the ureters nor the urinary bladder. IMPRESSION: Interval resolution of left lower renal collecting system calculi. POS: [facility]
== END 2018-05-15 15:14 | disposition home or self-care (01) ==
LOC: BICRAD 15:13
PROVIDERS: ATTEND Urology
DX: N20.0 Calculus of kidney (principal)
CPT/HCPCS: 74018

== ENCOUNTER 2018-09-15 13:23 | Outpatient (CLI) | payer OTHER ==
--- NOTE | 2018-09-15 14:24 | RAD ---
ABDOMEN ONE VIEW: HISTORY: Renal calculus. COMPARISON: 05/15/2018 FINDINGS: Moderate solid fecal material noted throughout the colon, somewhat overlying both kidneys. No eviden ce for renal calculus or ureteral calculus. IMPRESSION: 1. No overt renal calculus. 2. Extensive solid fecal material. POS: [facility]
== END 2018-09-15 13:24 | disposition home or self-care (01) ==
LOC: BICRAD 13:23
PROVIDERS: ATTEND Urology
DX: N20.0 Calculus of kidney (principal)
CPT/HCPCS: 74018

== ENCOUNTER 2019-03-08 14:41 | Outpatient (CLI) | payer OTHER ==
--- NOTE | 2019-03-08 15:28 | RAD ---
SUPINE ABDOMEN: HISTORY: Renal calculi. COMPARISON: 09/15/2018 FINDINGS: Prominent stool throughout the colon. No evidence of urinary tract calculus identified. IMPRESSION: 1. Prominent stool throughout the colon again noted. 2. No evidence of urinary tract calculus. 3. No interval change. POS: [facility]
== END 2019-03-08 14:42 | disposition home or self-care (01) ==
LOC: BICRAD 14:41
PROVIDERS: ATTEND Urology
DX: N20.0 Calculus of kidney (principal)
CPT/HCPCS: 74018

== ENCOUNTER 2019-04-03 09:23 | Emergency (ER) | payer OTHER ==
[2019-04-03 10:06] LABS: #Basophils 0.1 thou/uL (0.0-0.2); #Eosinphils 0.1 thou/uL (0.0-0.7); #Monocytes 1.1 thou/uL (0.11-0.59); #Neutrophils 8.2 thou/uL (1.40-6.50); %Basophils 0.8 % (0.0-1.0); %Eosinophils 0.9 % (0.0-10.0); %Lymphocytes 29.6 % (21.0-51.0); %Monocytes 8.3 % (0.0-10.0); %Neutrophils 60.4 % (42.0-75.0); Hemoglobin 14.8 g/dL (14.0-18.0); Mean Corpuscular HGB CONC 33.6 g/dL (32.0-36.0); Mean Corpuscular Hemoglobin 27.4 pg (27.0-31.0); Mean Corpuscular Volume 81.5 fL (78.0-98.0); Mean Platelet Volume 7.7 fL (7.4-10.4); Platelet Count 358 thou/uL (130-400); RBC Distribution Width 15.7 % (11.5-14.5); Red Blood Cell (RBC) Count 5.39 mill/uL (4.70-6.10); White Blood Cell (WBC) Count 13.6 thou/uL (4.8-10.8)
[2019-04-03 10:20] LABS: ALT (SGPT) 24 U/L (8-55); AST (SGOT) 21 U/L (5-34); Albumin 4.1 g/dL (3.5-5.0); Alkaline Phosphatase 96 U/L (40-110); Anion Gap 13 mmol/L (10-20); BUN (Urea Nitrogen) 14 mg/dL (8.9-20.6); Bilirubin, Total 0.7 mg/dL (0.2-1.2); Calc. Creatinine Clearance 0 mL/min (70-130); Calcium 9.3 mg/dL (7.8-10.44); Carbon Dioxide 22 mmol/L (22-29); Chloride 108 mmol/L (98-107); Estimated GFR-MDRD 79; Globulin 3.1 g/dL (2.4-3.5); Glucose 93 mg/dL (70-105); Lipase 35 U/L (8-78); Potassium 3.6 mmol/L (3.5-5.1); Protein, Total 7.2 g/dL (6.0-8.3); Sodium 139 mmol/L (136-145)
[2019-04-03] MEDS ORDERED: Morphine 4 MG/ML VIAL ONE (10:37)
[2019-04-03] MEDS ORDERED: Ketorolac Tromethamine 30 MG/ML VIAL ONE (10:37)
[2019-04-03] MEDS ORDERED: Ondansetron PF 4 MG/2 ML Vial ONE (10:37)
--- NOTE | 2019-04-03 11:27 | CT ---
CT ABDOMEN AND PELVIS WITHOUT CONTRAST: HISTORY: Abdominal pain, kidney stones, right-sided abdominal pain, and vomiting. COMPARISON: 12/11/2017. FINDINGS: Absence of oral and IV Contrast reduces the sensitivity of the exam, particularly for evaluation of s olid organs involved. The lung bases are clear. No calcified gallstones are seen. No free air or free fluid is noted in t he abdomen or pelvis. A normal-appearing appendix is seen. No acute osseous lesions are seen. There are tiny calcifications in the left kidney. There is a 2 mm calculus in the right ureter at L3 -4 level with mild to moderate right ipsilateral hydronephrosis. No calculi are seen in the right ki dney, left ureter, or the urinary bladder. IMPRESSION: 1. Nonobstructing tiny left renal calculi. 2. A 2 mm right ureteric calculus at L3-4 level with mild to moderate right ipsilateral hydronephros is. POS: [facility]
[2019-04-03 13:54] LABS: Bilirubin Negative (Negative); Blood, Urine Trace (Negative); Clarity Turbid (Clear); Glucose, Urine (Dipstick) Normal (Negative); Leukocyte 250 Leu/uL (Negative); Nitrite Negative (Negative); Protein, Urine (Dipstick) 20 mg/dL (Neg-Trace); Squamous Epithelial 0-3 HPF (0-3); Urobilinogen Normal mg/dL (Less than 2); WBC/HPF 21-50 HPF (0-3)
[2019-04-03 14:01] LABS: Bacteria/HPF 2+ HPF (None Seen)
== END 2019-04-03 15:05 | disposition home or self-care (01) ==
LOC: ERS 09:23
DX: N20.0 Calculus of kidney (principal); F41.9 Anxiety disorder, unspecified; F31.9 Bipolar disorder, unspecified; F42.9 Obsessive-compulsive disorder, unspecified; F17.210 Nicotine dependence, cigarettes, uncomplicated
CPT/HCPCS: 36415; 74176; 80053; 81003; 81015; 83690; 85025; 87086; 96361; 96374; 96375; J1885; J2270; J2405

== ENCOUNTER 2019-06-12 01:36 | Emergency (ER) | payer OTHER ==
[2019-06-12] MEDS ORDERED: Ondansetron ODT 4 MG TAB ONE (02:58)
[2019-06-12] MEDS ORDERED: Ketorolac Tromethamine 30 MG/ML VIAL ONE (02:58)
[2019-06-12] MEDS ORDERED: cefTRIAXone\\ROCEPHIN 250 MG VIAL ONE (03:38)
[2019-06-12] MEDS ORDERED: Lidocaine 1% (PF) 30 ML VIAL ONE (03:39)
[2019-06-12 04:17] LABS: Bacteria/HPF None Seen HPF (None Seen); Bilirubin Negative (Negative); Blood, Urine Trace (Negative); Clarity Clear (Clear); Glucose, Urine (Dipstick) Normal (Negative); Leukocyte 250 Leu/uL (Negative); Nitrite Negative (Negative); Protein, Urine (Dipstick) 70 mg/dL (Neg-Trace); RBC/HPF 21-50 HPF (0-3); Sperm/HPF Rare HPF (None Seen); Squamous Epithelial 0-3 HPF (0-3); Urobilinogen 3 mg/dL (Less than 2); WBC/HPF Greater than 50 HPF (0-3); Yeast-Budding Rare HPF (None Seen)
--- NOTE | 2019-06-12 07:24 | ULT ---
PRELIMINARY REPORT/[facility]/EMERGENCY AFTER HOURS PROCEDURE: EXAM: US Scrotum. CLINICAL HISTORY: Teste pain tonight after intercourse, pain more to lt teste, N/V TECHNIQUE: Real-time ultrasound of the scrotum with color Doppler and image documentation. COMPARISON: None provided. FINDINGS: RIGHT TESTICLE: The right testicle measures 2.5 x 4.1 x 2.2 cm. No mass. Normal Doppler flow. LEFT TESTICLE: The left testicle measures 2.6 x 3.8 x 2.2 cm. No mass. Normal Doppler flow. EPIDIDYMIDES: There is a 4 mm right epididymal head simple cyst. Mildly increased left epididymal bl ood flow. SCROTUM: Unremarkable. IMPRESSION: 1. No evidence of testicular torsion or mass. 2. Increased left epididymal blood flow. Correlate for epididymitis. ELECTRONICALLY SIGNED BY: Aba Perez M.D. Jun 12, 2019 3:43:57 AM CDT FINAL REPORT TESTICULAR ULTRASOUND: HISTORY: Testicular pain, tonight after intercourse. COMPARISON: None. TECHNIQUE: Sagittal and transverse imaging of the left and right hemiscrotum are performed. Testicular Doppler i s performed with grayscale, color-flow, Doppler imaging and spectral waveform analysis. FINDINGS: Right hemiscrotum: Testicle: Homogeneous echotexture. No intratesticular masses. Right testicle measurements: 4.1 x 2.2 x 2.5 cm. Right epididymis: Normal echotexture. 0.4 cm right epididymal cyst. Right epididymis measurements: 0.5 x 0.9 x 1.4 cm. Hydrocele: Small amount of fluid in the right hemiscrotum. Left hemiscrotum: Left testicle: Homogeneous echotexture. No intratesticular masses. Left testicle measurements: 3.8 x 2.2 x 2.6 cm. Left epididymis: Normal echotexture. Left epididymis measurements:0.5 x 1.1 x 1.1 cm. Hydrocele: Small amount of fluid in the left hemiscrotum. Testicular Doppler: There is symmetric vascular flow to the left and right testicle. Asymmetric incre ased flow in the left epididymis. IMPRESSION: 1. No evidence of testicular mass. 2. Increased left epididymal vascularity with respect to the contralateral side. Correlate for left s ided epididymitis. 3. This report is in agreement with the initial report by [facility]. Transcribed Date/Time: 06/12/2019 7:37 AM
[2019-06-13 00:54] LABS: Chlam.trachomatis by PCR,Urine Not Detected (NotDetected)
== END 2019-06-12 04:05 | disposition home or self-care (01) ==
LOC: ERS 01:36
DX: N45.1 Epididymitis (principal); R11.2 Nausea with vomiting, unspecified; K21.9 Gastro-esophageal reflux disease without esophagitis; G93.2 Benign intracranial hypertension; F41.9 Anxiety disorder, unspecified; F31.9 Bipolar disorder, unspecified; F42.9 Obsessive-compulsive disorder, unspecified; F17.210 Nicotine dependence, cigarettes, uncomplicated; Z71.6 Tobacco abuse counseling; Z79.899 Other long term (current) drug therapy
CPT/HCPCS: 76870; 81003; 81015; 87491; 87591; 93976; 96372; 99406; J0696; J1885; J2001; Q0162

== ENCOUNTER 2019-09-07 15:27 | Outpatient (CLI) | payer OTHER ==
--- NOTE | 2019-09-07 17:24 | RAD ---
SINGLE VIEW OF THE ABDOMEN: 09/07/19 COMPARISON: 03/08/19. HISTORY: Renal calculus. FINDINGS: Anterior view of the abdomen shows nonspecific, nonobstructive bowel gas pattern. No obvious calcific ations are seen projecting over either renal shadow or along the course of the ureters. IMPRESSION: No urinary collecting system calculi identified. POS: [facility]
== END 2019-09-07 15:28 | disposition home or self-care (01) ==
LOC: RAD 15:27
PROVIDERS: ATTEND Urology
DX: N20.0 Calculus of kidney (principal)
CPT/HCPCS: 74018

== ENCOUNTER 2019-10-22 11:09 | Emergency (ER) | payer OTHER ==
--- NOTE | 2019-10-22 11:50 | CT ---
CT BRAIN NONCONTRAST: DATE: 10/22/2019 HISTORY: 23-year-old male with altered mental status FINDINGS: There is no evidence of acute intra-axial or extra-axial hemorrhage. There is no midline shift or any other mass effect. There is no extra-axial fluid collection. The ventricles are normal in size and configuration. The tympanomastoid cavities, and the upper portions of the paranasal sinuses included in these images, are grossly clear. Calvarium is intact. IMPRESSION: Normal.
[2019-10-22 11:55] LABS: Base Excess-Venous -2.5 mmol/L (-2.0 to 3.0); Bicarbonate (HCO3v) 23.2 mmol/L (22.0-28.0); CO2 Tension (PvCO2) 42.3 mmHg (40.0-50.0); Calcium, Ionized 1.12 mmol/L (See Comments:); Chloride 110 mmol/L (98-107); Hemoglobin - Calc 17.7 g/dL (14.0-18.0); Potassium 3.3 mmol/L (3.5-5.1); Sodium 142 mmol/L (138-145); T. Carbon Dioxide 24.5 mmol/L (22.0-28.0); vO2 Saturation-calc 90.3 % (60.0-85.0)
[2019-10-22 12:13] LABS: Hemoglobin 15.8 g/dL (14.0-18.0); Mean Corpuscular HGB CONC 31.5 g/dL (32.0-36.0); Mean Corpuscular Hemoglobin 27.3 pg (27.0-31.0); Mean Corpuscular Volume 86.7 fL (78.0-98.0); Mean Platelet Volume 7.9 fL (7.4-10.4); Platelet Count 312 thou/uL (130-400); RBC Distribution Width 15.6 % (11.5-14.5); Red Blood Cell (RBC) Count 5.77 mill/uL (4.70-6.10); White Blood Cell (WBC) Count 9.3 thou/uL (4.8-10.8)
[2019-10-22 12:14] LABS: #Basophils 0.1 thou/uL (0.0-0.2); #Eosinphils 0.2 thou/uL (0.0-0.7); #Lymphocytes 2.7 thou/uL (1.20-3.40); #Monocytes 0.8 thou/uL (0.11-0.59); #Neutrophils 5.4 thou/uL (1.40-6.50); %Basophils 0.9 % (0.0-1.0); %Eosinophils 2.6 % (0.0-10.0); %Lymphocytes 29.2 % (21.0-51.0); %Monocytes 8.9 % (0.0-10.0); %Neutrophils 58.4 % (42.0-75.0)
[2019-10-22 12:16] LABS: ALT (SGPT) 18 U/L (8-55); AST (SGOT) 15 U/L (5-34); Acetaminophen Less than 6.0 mcg/mL (10.0-30.0); Albumin 4.2 g/dL (3.5-5.0); Alcohol Less than 10 mg/dL (Less than 10); Alkaline Phosphatase 87 U/L (40-110); Anion Gap 11 mmol/L (10-20); BUN (Urea Nitrogen) 10 mg/dL (8.9-20.6); Bilirubin, Total 0.7 mg/dL (0.2-1.2); CK (CPK) 59 U/L (30-200); Calc. Creatinine Clearance 0 mL/min (70-130); Carbon Dioxide 21 mmol/L (22-29); Chloride 107 mmol/L (98-107); Estimated GFR-MDRD Greater than 90; Globulin 2.7 g/dL (2.4-3.5); Glucose 100 mg/dL (70-105); Potassium 3.3 mmol/L (3.5-5.1); Protein, Total 6.9 g/dL (6.0-8.3); Salicylate Less than 8.0 mg/dL (15.0-30.0); Sodium 136 mmol/L (136-145)
[2019-10-22 12:30] LABS: Bilirubin Negative (Negative); Blood, Urine Negative (Negative); Glucose, Urine (Dipstick) Negative (Negative); Ketone, Urine Negative (Negative); Leukocyte Trace (Negative); Nitrite Negative (Negative); Protein, Urine (Dipstick) Negative (Neg-Trace); pH, Urine 7.5 (5.0-9.0)
[2019-10-22 12:34] LABS: Clarity Turbid (Clear)
--- NOTE | 2019-10-22 12:36 | RAD ---
EXAM: Single view of the chest HISTORY: Unresponsiveness with possible drug use COMPARISON: None FINDINGS: Single view of the chest shows a normal sized cardiomediastinal silhouette. There is no yolanda dence of consolidation, mass, or pleural effusion. The bones are unremarkable IMPRESSION: No evidence of acute cardiopulmonary disease
[2019-10-22 12:40] LABS: Medtox Reader # READER 1; RBC/HPF 0-3 HPF (0-3)
[2019-10-22 12:41] LABS: Amphetamine Not Detected (NotDetected); Bacteria/HPF None Seen HPF (None Seen); Barbiturates Screen Not Detected (NotDetected); Benzodiazepine Screen Detected (NotDetected); Cocaine Metabolite Screen Not Detected (NotDetected); Medtox Control Line Valid? VALID (VALID); Methadone Not Detected (NotDetected); Methamphetamine Not Detected (NotDetected); Opiate Screen Not Detected (NotDetected); Oxycodone Screen Not Detected (NotDetected); Phencyclidine (PCP) Not Detected (NotDetected); Squamous Epithelial 0-3 HPF (0-3); THC/Cannabinoid Screen Detected (NotDetected); Tricyclic Screen Not Detected (NotDetected)
== END 2019-10-22 13:41 | disposition home or self-care (01) ==
LOC: ERS 11:09
DX: F12.10 Cannabis abuse, uncomplicated (principal); I10 Essential (primary) hypertension; F41.9 Anxiety disorder, unspecified; F31.9 Bipolar disorder, unspecified; K21.9 Gastro-esophageal reflux disease without esophagitis; F42.9 Obsessive-compulsive disorder, unspecified; F17.210 Nicotine dependence, cigarettes, uncomplicated; Z79.899 Other long term (current) drug therapy; Z87.442 Personal history of urinary calculi
CPT/HCPCS: 36416; 70450; 71045; 80053; 80306; 80307; 81003; 81015; 82330; 82550; 82803; 84443; 84484; 85025; 93005; 96360

== ENCOUNTER 2020-12-09 00:13 | Emergency (ER) | payer OTHER ==
[2020-12-09 00:52] LABS: #Basophils 0.1 thou/uL (0.0-0.2); #Lymphocytes 0.4 thou/uL (1.20-3.40); #Monocytes 1.3 thou/uL (0.11-0.59); #Neutrophils 7.3 thou/uL (1.40-6.50); %Basophils 1.6 % (0.0-1.0); %Eosinophils 0.2 % (0.0-10.0); %Lymphocytes 4.5 % (21.0-51.0); %Monocytes 14.5 % (0.0-10.0); %Neutrophils 79.3 % (42.0-75.0); Hemoglobin 15.7 g/dL (14.0-18.0); Mean Corpuscular HGB CONC 34.4 g/dL (32.0-36.0); Mean Corpuscular Hemoglobin 29.8 pg (27.0-31.0); Mean Corpuscular Volume 86.6 fL (78.0-98.0); Platelet Count 241 thou/uL (130-400); RBC Distribution Width 14.9 % (11.5-14.5); Red Blood Cell (RBC) Count 5.29 mill/uL (4.70-6.10); White Blood Cell (WBC) Count 9.2 thou/uL (4.8-10.8)
[2020-12-09 01:10] LABS: ALT (SGPT) 14 U/L (8-55); AST (SGOT) 14 U/L (5-34); Albumin 4.1 g/dL (3.5-5.0); Alkaline Phosphatase 92 U/L (40-110); Anion Gap 12 mmol/L (10-20); BUN (Urea Nitrogen) 11 mg/dL (8.9-20.6); Bilirubin, Total 1.1 mg/dL (0.2-1.2); Calc. Creatinine Clearance 0 mL/min (70-130); Calcium 9.1 mg/dL (7.8-10.44); Carbon Dioxide 19 mmol/L (22-29); Chloride 107 mmol/L (98-107); Globulin 2.9 g/dL (2.4-3.5); Glucose 102 mg/dL (70-105); Potassium 3.3 mmol/L (3.5-5.1); Sodium 135 mmol/L (136-145)
[2020-12-09 01:46] LABS: Bilirubin Negative (Negative); Blood, Urine Negative (Negative); Clarity Clear (Clear); Glucose, Urine (Dipstick) Normal (Negative); Ketone, Urine 20 mg/dL (Negative); Leukocyte Negative Leu/uL (Negative); Nitrite Negative (Negative); Protein, Urine (Dipstick) Negative (Neg-Trace); Specific Gravity, Urine 1.013 (1.002-1.036); Urobilinogen Normal mg/dL (Less than 2); pH, Urine 6.5 (5.0-9.0)
[2020-12-09] MEDS ORDERED: Ondansetron PF 4 MG/2 ML Vial ONE (02:04)
== END 2020-12-09 03:45 | disposition home or self-care (01) ==
LOC: ERS 00:13
DX: U07.1 COVID-19 (principal); K21.9 Gastro-esophageal reflux disease without esophagitis; F17.210 Nicotine dependence, cigarettes, uncomplicated
CPT/HCPCS: 70450; 80053; 81003; 84484; 85025; 93005; 96374; J2405

== ENCOUNTER 2020-12-10 04:27 | Emergency (ER) | payer OTHER | END 2020-12-10 05:07 | LOC: ERS 04:27 → EEVIPCON 04:27 → ERS 05:07 | DX: R07.2 Precordial pain (principal); R05 Cough; K21.9 Gastro-esophageal reflux disease without esophagitis; F17.210 Nicotine dependence, cigarettes, uncomplicated | CPT/HCPCS: 71045; 93005 ==

== ENCOUNTER 2022-03-30 14:55 | Emergency (ER) | payer OTHER ==
[~2022-03-30 14:55] MED LIST changes: +Iopamidol-370 76% 500 ML 1 ML ONE; -Lidocaine 1% PF 5 ML VIAL ONE; -PROPOFOL 200 MG/20 ML VIAL ONE
[2022-03-30] MEDS ORDERED: Morphine 4 MG/ML VIAL ONE (16:10)
[2022-03-30] MEDS ORDERED: Pantoprazole 40 MG VIAL ONE (16:10)
[2022-03-30 16:27] LABS: INR-International Normal Ratio 1.1; PTT 34.1 sec (22.9-36.1); Prothrombin Time 14.3 sec (12.0-14.7)
[2022-03-30] MEDS ORDERED: Prochlorperazine 10 MG/2 ML VIAL IVP SCH (16:30)
[2022-03-30 16:33] LABS: Hemoglobin 19.9 g/dL (14.0-18.0); Mean Corpuscular HGB CONC 35.2 g/dL (32.0-36.0); Mean Corpuscular Hemoglobin 28.9 pg (27.0-31.0); Mean Corpuscular Volume 82.1 fl (78.0-98.0); Mean Platelet Volume 7.9 fL (7.4-10.4); Platelet Count 484 10x3/uL (130-400); RBC Distribution Width 16.1 % (11.5-14.5)
[2022-03-30 16:36] LABS: ALT (SGPT) 21 U/L (8-55); AST (SGOT) 21 U/L (5-34); Albumin 5.3 g/dL (3.5-5.0); Alkaline Phosphatase 112 U/L (40-110); Anion Gap 31 mmol/L (10-20); BUN (Urea Nitrogen) 20 mg/dL (8.9-20.6); CK (CPK) 133 U/L (30-200); Calc. Creatinine Clearance 0 mL/min (70-130); Calcium 10.7 mg/dL (7.8-10.44); Carbon Dioxide 14 mmol/L (22-29); Chloride 93 mmol/L (98-107); Estimated GFR 50; Glucose 142 mg/dL (70-105); Lipase 33 U/L (8-78); Magnesium 2.4 mg/dL (1.6-2.6); Protein, Total 9.3 g/dL (6.0-8.3); Sodium 136 mmol/L (136-145)
[2022-03-30 16:39] LABS: Bacteria/HPF None Seen HPF (None Seen); Bilirubin 1+ (Negative); Blood, Urine Negative (Negative); Clarity Clear (Clear); Glucose, Urine (Dipstick) Normal (Negative); Ketone, Urine Greater than 150 mg/dL (Negative); Leukocyte 250 Leu/uL (Negative); Nitrite Negative (Negative); Protein, Urine (Dipstick) 100 mg/dL (Neg-Trace); Specific Gravity, Urine 1.027 (1.002-1.036); Squamous Epithelial 0-3 HPF (0-3); Urobilinogen 3 mg/dL (Less than 2)
[2022-03-30 16:49] LABS: Potassium 2.3 mmol/L (3.5-5.1)
[2022-03-30 16:56] LABS: Yeast-Budding 1+ HPF (None Seen); Yeast-Hyphae 1+ HPF (None Seen)
[2022-03-30 17:06] LABS: Band 6 % (5-11); Lymphocytes 6 % (21-51); MDiff Complete? YES; Monocytes 6 % (0-10); Neutrophil 76 % (42-75); Platelet Morphology Comment Appears Increased; RBC Morphology Normal; Reactive Lymphocytes 6 % (0-10)
[2022-03-30] MEDS ORDERED: Potassium Chloride 20 MEQ TAB ONE (17:10)
[2022-03-30] MEDS ORDERED: Potassium Chloride 20 MEQ/100 ML PREMIX BAG ONE (17:10)
[2022-03-30 17:15] LABS: SARS-CoV-2 NAA Rapid Test Not Detected (NotDetected)
[2022-03-30] MEDS ORDERED: NS 0.9% w/ 40 MEQ KCL 1,000 ML IV SCH (17:15)
[2022-03-30] MEDS ORDERED: Cefepime 2 GM VIAL ONE (17:41)
[2022-03-30] MEDS ORDERED: metroNIDAZOLE 500 MG in Premix Bag 1 BAG IVPB SCH (19:00)
[2022-03-30] MEDS ORDERED: VANCOMYCIN 2 GRAM/500 ML BAG 2 GM in Premix Bag 1 BAG IVPB SCH (19:00)
[2022-03-30 20:07] LABS: Lactic Acid 1.2 mmol/L (0.5-2.2)
[2022-03-30 20:56] LABS: Actual Bicarbonate (HCO3v) 21 mEq/L (22-28); Analyzer IN Cardio ER; Base Excess -4.8 mEq/L (-2.0 to +3.0); Calcium, Ionized (venous) 1.07 mmol/L (1.16-1.32); Chloride (VBG) 100 mmol/L (98-106); Hemoglobin (Hb) 15.3 g/dL (13.2-17.3); Potassium (VBG) 2.76 mmol/L (3.70-5.30); Sodium 137.9 mmol/L (133-146); pH (venous) 7.33 (7.32-7.43)
== END 2022-03-30 22:44 | disposition short-term general hospital (02) ==
LOC: ERS 14:55
DX: A41.9 Sepsis, unspecified organism (principal); K22.3 Perforation of esophagus; E86.0 Dehydration; N17.9 Acute kidney failure, unspecified; E87.6 Hypokalemia; F17.210 Nicotine dependence, cigarettes, uncomplicated; Z20.822 Contact with and (suspected) exposure to COVID-19; Z79.899 Other long term (current) drug therapy
CPT/HCPCS: 36415; 71045; 74177; 80053; 81003; 81015; 82550; 82805; 83605; 83690; 83735; 84484; 85025; 85379; 85610; 85730; 87040; 93005; 94760; 96361; 96365; 96366; 96368; 96375; C9113; J0692; J0780; J2270; J3370; J3480; Q9967

== ENCOUNTER 2022-04-09 12:32 | Inpatient (IN) | payer OTHER ==
[2022-04-09] MEDS ORDERED: metroNIDAZOLE 500 MG/100 ML BAG ONE (12:58)
[2022-04-09] MEDS ORDERED: Cefepime 2 GM VIAL ONE (12:58)
[2022-04-09 13:43] LABS: Hemoglobin 18.9 g/dL (14.0-18.0); Mean Corpuscular HGB CONC 33.8 g/dL (32.0-36.0); Mean Corpuscular Hemoglobin 28.9 pg (27.0-31.0); Mean Corpuscular Volume 85.4 fl (78.0-98.0); RBC Distribution Width 16.8 % (11.5-14.5); Red Blood Cell (RBC) Count 6.54 mill/uL (4.70-6.10)
[2022-04-09 13:46] LABS: #Lymphocytes 2.5 thou/uL (1.20-3.40); #Monocytes 1.5 thou/uL (0.11-0.59); #Neutrophils 9.4 thou/uL (1.40-6.50); %Basophils 0.3 % (0.0-1.0); %Eosinophils 0.2 % (0.0-10.0); %Lymphocytes 18.4 % (21.0-51.0); %Monocytes 11.4 % (0.0-10.0); %Neutrophils 69.8 % (42.0-75.0); Anisocytosis SLIGHT = 6-15 cells (100X) (0-5/hpf); Band 2 % (5-11); Lymphocytes 10 % (21-51); MDiff Complete? YES; Mean Platelet Volume 8.1 fL (7.4-10.4); Monocytes 8 % (0-10); Neutrophil 78 % (42-75); Platelet Count 412 10x3/uL (130-400); Platelet Morphology Comment Appears Adequate; Reactive Lymphocytes 2 % (0-10); White Blood Cell (WBC) Count 13.5 10x3/uL (4.8-10.8)
[2022-04-09 13:51] LABS: ALT (SGPT) 35 U/L (8-55); AST (SGOT) 25 U/L (5-34); Albumin 4.7 g/dL (3.5-5.0); Alkaline Phosphatase 85 U/L (40-110); Anion Gap 20 mmol/L (10-20); BUN (Urea Nitrogen) 17 mg/dL (8.9-20.6); Bilirubin, Total 1.4 mg/dL (0.2-1.2); Calc. Creatinine Clearance 0 mL/min (70-130); Calcium 10.5 mg/dL (7.8-10.44); Carbon Dioxide 17 mmol/L (22-29); Chloride 99 mmol/L (98-107); Estimated GFR 76; Globulin 3.8 g/dL (2.4-3.5); Glucose 131 mg/dL (70-105); Lipase 23 U/L (8-78); Magnesium 2.1 mg/dL (1.6-2.6); Protein, Total 8.5 g/dL (6.0-8.3); Sodium 134 mmol/L (136-145)
[2022-04-09 13:54] LABS: Potassium 2.3 mmol/L (3.5-5.1)
[2022-04-09] MEDS ORDERED: Potassium Chloride 20 MEQ TAB ONE (14:05)
[2022-04-09] MEDS ORDERED: Potassium Chloride 20 MEQ/100 ML PREMIX BAG ONE (14:05)
[2022-04-09] MEDS ORDERED: Iopamidol-370 76% 500 ML 1 ML ONE (15:56)
[2022-04-09] MEDS ORDERED: Fentanyl 100 MCG/2 ML VIAL ONE (18:34)
[2022-04-09] MEDS ORDERED: Prochlorperazine 10 MG/2 ML VIAL ONE (18:34)
[2022-04-09] MEDS ORDERED: Lactated Ringer's 1,000 ML IV SCH (19:30)
[2022-04-09] MEDS ORDERED: Morphine 4 MG/ML VIAL SLOW IVP PRN (21:22)
[2022-04-09] MEDS ORDERED: Ondansetron ODT 4 MG TAB PO PRN (21:22)
[2022-04-09] MEDS ORDERED: Acetaminophen 500 MG TAB PO PRN (21:22)
[2022-04-09] MEDS ORDERED: Ondansetron PF 4 MG/2 ML Vial IVP PRN (21:22)
[2022-04-09] MEDS ORDERED: hydrALAZINE 20 MG/ML VIAL SLOW IVP PRN (21:22)
[2022-04-09] MEDS ORDERED: Lurasidone 20 MG TABLET PO SCH (21:45)
[2022-04-09] MEDS ORDERED: lamoTRIgine 100 MG TAB PO SCH (21:45)
[2022-04-09] MEDS ORDERED: AcetaZOLAMIDE ER 500 MG CAP PO SCH (21:45)
[2022-04-09] MEDS ORDERED: Pantoprazole 40 MG VIAL IVP SCH (21:45)
[2022-04-09] MEDS ORDERED: guanFACINE HCl 1 MG TAB PO SCH (21:45)
[2022-04-09] MEDS ORDERED: Piperacillin/Tazobactam 3.375 GM in Sodium Chloride 0.9% 100 ML IVPB SCH (21:45)
[2022-04-09] MEDS: D5 NS w/ 40 mEq KCl 1,000 ML IV SCH (22:13)
[2022-04-09] MEDS: metroNIDAZOLE 500 MG in Premix Bag 1 BAG IVPB SCH (23:13)
[2022-04-10] MEDS: Piperacillin/Tazobactam 3.375 GM in Sodium Chloride 0.9% 100 ML IVPB SCH ×3 (02:28→17:08)
[2022-04-10 05:17] LABS: #Eosinphils 0.1 thou/uL (0.0-0.7); #Lymphocytes 3.6 thou/uL (1.20-3.40); #Monocytes 1.5 thou/uL (0.11-0.59); #Neutrophils 6.1 thou/uL (1.40-6.50); %Basophils 0.4 % (0.0-1.0); %Eosinophils 0.7 % (0.0-10.0); %Lymphocytes 32.2 % (21.0-51.0); %Monocytes 13.3 % (0.0-10.0); %Neutrophils 53.5 % (42.0-75.0); Hemoglobin 13.4 g/dL (14.0-18.0); Mean Corpuscular HGB CONC 32.6 g/dL (32.0-36.0); Mean Corpuscular Hemoglobin 28.1 pg (27.0-31.0); Mean Corpuscular Volume 86.2 fl (78.0-98.0); Mean Platelet Volume 7.9 fL (7.4-10.4); Platelet Count 328 10x3/uL (130-400); RBC Distribution Width 16.2 % (11.5-14.5); Red Blood Cell (RBC) Count 4.78 mill/uL (4.70-6.10); White Blood Cell (WBC) Count 11.3 10x3/uL (4.8-10.8)
[2022-04-10 06:11] LABS: ALT (SGPT) 20 U/L (8-55); AST (SGOT) 15 U/L (5-34); Albumin 3.3 g/dL (3.5-5.0); Alkaline Phosphatase 54 U/L (40-110); Anion Gap 11 mmol/L (10-20); BUN (Urea Nitrogen) 13 mg/dL (8.9-20.6); Bilirubin, Total 1.3 mg/dL (0.2-1.2); Calc. Creatinine Clearance 138 mL/min (70-130); Carbon Dioxide 20 mmol/L (22-29); Chloride 106 mmol/L (98-107); Estimated GFR 105; Globulin 2.3 g/dL (2.4-3.5); Glucose 113 mg/dL (70-105); Potassium 2.2 mmol/L (3.5-5.1); Protein, Total 5.6 g/dL (6.0-8.3); Sodium 135 mmol/L (136-145)
[2022-04-10] MEDS ORDERED: Potassium Chloride 40 MEQ in Premix Bag 1 BAG IVPB SCH (06:45)
[2022-04-10] MEDS ORDERED: Electrolyte Replacement Protocol 1 EACH FS PRN (06:54)
[2022-04-10] MEDS: metroNIDAZOLE 500 MG in Premix Bag 1 BAG IVPB SCH ×3 (06:55→22:04)
[2022-04-10 07:15] LABS: Magnesium 1.9 mg/dL (1.6-2.6)
[2022-04-10] MEDS ORDERED: Potassium Bicarbonate/Cit Ac 20 MEQ TAB PO SCH (08:00)
[2022-04-10] MEDS ORDERED: Potassium Chloride 20 MEQ in Premix Bag 1 BAG IVPB SCH (08:00)
[2022-04-10] MEDS: Potassium Chloride 20 MEQ in Premix Bag 1 BAG IVPB SCH ×4 (09:46→19:19)
[2022-04-10] MEDS: FLUoxetine HCl 20 MG CAP PO SCH (09:53)
[2022-04-10] MEDS: lamoTRIgine 100 MG TAB PO SCH ×2 (09:54→21:50)
[2022-04-10] MEDS: Pantoprazole 40 MG VIAL IVP SCH ×2 (09:55→21:58)
[2022-04-10] MEDS: AcetaZOLAMIDE ER 500 MG CAP PO SCH ×2 (10:16→21:50)
[2022-04-10 11:51] VITALS: BMI 32.4
[2022-04-10] MEDS ORDERED: Magnesium 2 GM/50 ML(in water) 2 GM in Premix Bag 1 BAG IVPB SCH (13:15)
[2022-04-10] MEDS: D5 NS w/ 40 mEq KCl 1,000 ML IV SCH (14:33)
[2022-04-10 15:33] LABS: Anion Gap 11 mmol/L (10-20); BUN (Urea Nitrogen) 11 mg/dL (8.9-20.6); Calc. Creatinine Clearance 131 mL/min (70-130); Carbon Dioxide 21 mmol/L (22-29); Chloride 109 mmol/L (98-107); Estimated GFR 99; Glucose 98 mg/dL (70-105); Potassium 2.8 mmol/L (3.5-5.1); Sodium 138 mmol/L (136-145)
[2022-04-10] MEDS ORDERED: Piperacillin/Tazobactam 3.375 GM VIAL ONE (17:06)
[2022-04-10 20:40] LABS: Potassium 3.4 mmol/L (3.5-5.1)
[2022-04-10] MEDS ORDERED: guanFACINE HCl 1 MG TAB PO SCH (21:00)
[2022-04-10] MEDS ORDERED: Lurasidone 20 MG TABLET PO SCH (21:00)
[2022-04-11] MEDS: Potassium Chloride 20 MEQ in Premix Bag 1 BAG IVPB SCH ×2 (01:49→03:40)
[2022-04-11] MEDS: Piperacillin/Tazobactam 3.375 GM in Sodium Chloride 0.9% 100 ML IVPB SCH ×2 (01:54→08:50)
[2022-04-11] MEDS: D5 NS w/ 40 mEq KCl 1,000 ML IV SCH ×3 (02:12→17:30)
[2022-04-11] MEDS: metroNIDAZOLE 500 MG in Premix Bag 1 BAG IVPB SCH ×2 (06:16→14:36)
[2022-04-11] MEDS: AcetaZOLAMIDE ER 500 MG CAP PO SCH (08:49)
[2022-04-11] MEDS: Pantoprazole 40 MG VIAL IVP SCH (08:49)
[2022-04-11] MEDS: lamoTRIgine 100 MG TAB PO SCH (08:49)
[2022-04-11] MEDS: FLUoxetine HCl 20 MG CAP PO SCH (08:49)
[2022-04-11 09:13] LABS: Anion Gap 8 mmol/L (10-20); BUN (Urea Nitrogen) 8 mg/dL (8.9-20.6); Calc. Creatinine Clearance 156 mL/min (70-130); Calcium 7.6 mg/dL (7.8-10.44); Carbon Dioxide 17 mmol/L (22-29); Chloride 120 mmol/L (98-107); Estimated GFR 113; Glucose 109 mg/dL (70-105); Magnesium 2.3 mg/dL (1.6-2.6); Potassium 3.6 mmol/L (3.5-5.1); Sodium 141 mmol/L (136-145)
[2022-04-11 12:48] VITALS: TEMP 97.4
[2022-04-11 12:49] VITALS: BP 93/51
== END 2022-04-11 17:29 | disposition short-term general hospital (02) | DRG 369 ==
LOC: EEVIPCON 12:32 → ERS 12:32 → 2NO 15:39
PROVIDERS: ADMIT Family Medicine; ATTEND Hospitalist
DX: K22.3 Perforation of esophagus (principal); E87.1 Hypo-osmolality and hyponatremia; N17.9 Acute kidney failure, unspecified; K21.9 Gastro-esophageal reflux disease without esophagitis; F41.9 Anxiety disorder, unspecified; F31.9 Bipolar disorder, unspecified; F42.9 Obsessive-compulsive disorder, unspecified; F17.210 Nicotine dependence, cigarettes, uncomplicated; F12.10 Cannabis abuse, uncomplicated; E86.0 Dehydration; E87.6 Hypokalemia; G93.2 Benign intracranial hypertension; J98.2 Interstitial emphysema; G97.1 Other reaction to spinal and lumbar puncture; Z88.1 Allergy status to other antibiotic agents; Z79.899 Other long term (current) drug therapy
CPT/HCPCS: 36415; 71260; 80048; 80053; 83605; 83690; 83735; 84484; 85025; 87040; 93005; C9113; J0692; J0780; J2543; J3010; J3475; J3480; J3490; J7120; Q9967; U0003; U0005

== ENCOUNTER 2022-04-16 19:56 | Emergency (ER) | payer OTHER ==
[~2022-04-16 19:56] MED LIST changes: +GASTROGRAFIN 30 ML BOT ONE; -Iopamidol-370 76% 500 ML 1 ML ONE
[2022-04-16] MEDS ORDERED: Ondansetron PF 4 MG/2 ML Vial ONE (20:15)
[2022-04-16 21:09] LABS: Hemoglobin 16.7 g/dL (14.0-18.0); Mean Corpuscular HGB CONC 32.7 g/dL (32.0-36.0); Mean Corpuscular Hemoglobin 28.9 pg (27.0-31.0); Mean Corpuscular Volume 88.2 fl (78.0-98.0); Mean Platelet Volume 8.7 fL (7.4-10.4); Platelet Count 379 10x3/uL (130-400); RBC Distribution Width 16.9 % (11.5-14.5); Red Blood Cell (RBC) Count 5.78 mill/uL (4.70-6.10); White Blood Cell (WBC) Count 27.8 10x3/uL (4.8-10.8)
[2022-04-16 21:21] LABS: INR-International Normal Ratio 1.2; Prothrombin Time 15.3 sec (12.0-14.7)
[2022-04-16 21:27] LABS: ALT (SGPT) 37 U/L (8-55); AST (SGOT) 24 U/L (5-34); Albumin 4.2 g/dL (3.5-5.0); Alkaline Phosphatase 70 U/L (40-110); Anion Gap 20 mmol/L (10-20); BUN (Urea Nitrogen) 16 mg/dL (8.9-20.6); Band 4 % (5-11); Bilirubin, Total 1.5 mg/dL (0.2-1.2); Calc. Creatinine Clearance 0 mL/min (70-130); Calcium 10.2 mg/dL (7.8-10.44); Carbon Dioxide 19 mmol/L (22-29); Chloride 102 mmol/L (98-107); Estimated GFR 102; Globulin 2.7 g/dL (2.4-3.5); Glucose 103 mg/dL (70-105); Lipase 12 U/L (8-78); Lymphocytes 16 % (21-51); MDiff Complete? YES; Monocytes 15 % (0-10); Neutrophil 65 % (42-75); Platelet Morphology Comment Appears Adequate; Protein, Total 6.9 g/dL (6.0-8.3); RBC Morphology Normal; Sodium 138 mmol/L (136-145)
[2022-04-16] MEDS ORDERED: Fentanyl 100 MCG/2 ML VIAL ONE (21:29)
[2022-04-16 21:37] LABS: Potassium 2.5 mmol/L (3.5-5.1)
[2022-04-16] MEDS ORDERED: Promethazine HCl 12.5 MG in Sodium Chloride 0.9% 50 ML IVPB SCH (21:45)
[2022-04-16] MEDS ORDERED: Potassium Chloride 40 MEQ in Sodium Chloride 0.9% 250 ML 250 ML IVPB SCH (22:00)
[2022-04-16] MEDS ORDERED: NS 0.9% w/ 40 MEQ KCL 1,000 ML IV SCH (22:30)
[2022-04-17 01:00] LABS: SARS-CoV-2 NAA Rapid Test Not Detected (NotDetected)
[2022-04-17] MEDS ORDERED: Cefepime 2 GM VIAL ONE (01:11)
[2022-04-17] MEDS ORDERED: Ondansetron PF 4 MG/2 ML Vial ONE (01:15)
[2022-04-17] MEDS ORDERED: metroNIDAZOLE 500 MG/100 ML BAG ONE (02:08)
[2022-04-17] MEDS ORDERED: Vancomycin 1 GM/200 ML (FROZEN) BAG ONE (02:47)
[2022-04-17 03:39] LABS: Potassium 2.9 mmol/L (3.5-5.1)
[2022-04-17] MEDS ORDERED: Fentanyl 100 MCG/2 ML VIAL ONE (04:44)
== END 2022-04-17 05:49 | disposition short-term general hospital (02) ==
LOC: ERS 19:56
DX: K22.3 Perforation of esophagus (principal); J98.2 Interstitial emphysema; E87.6 Hypokalemia; K21.9 Gastro-esophageal reflux disease without esophagitis; F17.210 Nicotine dependence, cigarettes, uncomplicated; G93.2 Benign intracranial hypertension; Z20.822 Contact with and (suspected) exposure to COVID-19; Z87.442 Personal history of urinary calculi; Z79.899 Other long term (current) drug therapy
CPT/HCPCS: 36415; 71250; 80053; 83605; 83690; 84132; 85025; 85610; 85730; 87040; 93005; 96374; 96375; 96376; J0692; J2405; J2550; J3010; J3370-JW; J3480; J7050; Q9963; U0002

== ENCOUNTER 2022-05-06 17:25 | Inpatient (IN) | payer OTHER ==
[~2022-05-06 17:25] MED LIST changes: -GASTROGRAFIN 30 ML BOT ONE; +Iopamidol-370 76% 500 ML MDV (1 ML CHARGE) ONE
[2022-05-06 18:19] LABS: Bacteria/HPF None Seen HPF (None Seen); Bilirubin Negative (Negative); Blood, Urine Negative (Negative); Clarity Cloudy (Clear); Glucose, Urine (Dipstick) Normal (Negative); Ketone, Urine Negative (Negative); Leukocyte 25 Leu/uL (Negative); Nitrite Negative (Negative); Protein, Urine (Dipstick) Negative (Neg-Trace); RBC/HPF None Seen HPF (0-3); Specific Gravity, Urine 1.011 (1.002-1.036); Squamous Epithelial None Seen HPF (0-3); Urobilinogen Normal mg/dL (Less than 2)
[2022-05-06] MEDS ORDERED: Ondansetron PF 4 MG/2 ML Vial ONE (18:21)
[2022-05-06] MEDS ORDERED: Pantoprazole 40 MG VIAL ONE (18:21)
[2022-05-06] MEDS ORDERED: Morphine 4 MG/ML VIAL ONE (18:21)
[2022-05-06 18:31] LABS: #Basophils 0.1 thou/uL (0.0-0.2); #Lymphocytes 1.5 thou/uL (1.20-3.40); #Monocytes 1.3 thou/uL (0.11-0.59); #Neutrophils 13.1 thou/uL (1.40-6.50); %Basophils 0.5 % (0.0-1.0); %Eosinophils 0.2 % (0.0-10.0); %Lymphocytes 9.6 % (21.0-51.0); %Neutrophils 81.7 % (42.0-75.0); Hemoglobin 13.2 g/dL (14.0-18.0); Mean Corpuscular HGB CONC 32.5 g/dL (32.0-36.0); Mean Corpuscular Hemoglobin 28.1 pg (27.0-31.0); Mean Corpuscular Volume 86.4 fl (78.0-98.0); Mean Platelet Volume 7.6 fL (7.4-10.4); Platelet Count 434 10x3/uL (130-400); RBC Distribution Width 16.3 % (11.5-14.5)
[2022-05-06 18:44] LABS: Prothrombin Time 69.1 sec (12.0-14.7)
[2022-05-06 18:48] LABS: INR-International Normal Ratio 7.8
[2022-05-06 18:55] LABS: ALT (SGPT) 65 U/L (8-55); AST (SGOT) 33 U/L (5-34); Albumin 3.9 g/dL (3.5-5.0); Alkaline Phosphatase 83 U/L (40-110); Anion Gap 15 mmol/L (10-20); BUN (Urea Nitrogen) 6 mg/dL (8.9-20.6); Bilirubin, Total 1.3 mg/dL (0.2-1.2); Calc. Creatinine Clearance 0 mL/min (70-130); Calcium 9.4 mg/dL (7.8-10.44); Carbon Dioxide 21 mmol/L (22-29); Chloride 104 mmol/L (98-107); Estimated GFR 123; Glucose 112 mg/dL (70-105); Lipase 15 U/L (8-78); Potassium 2.9 mmol/L (3.5-5.1); Protein, Total 6.9 g/dL (6.0-8.3); Sodium 137 mmol/L (136-145)
[2022-05-06 19:02] LABS: PTT Greater than 250.0 sec (22.9-36.1)
[2022-05-06] MEDS ORDERED: Potassium Chloride 40 MEQ in Sodium Chloride 0.9% 250 ML 250 ML IVPB SCH (19:45)
[2022-05-06 19:55] LABS: Fibrinogen 420 mg/dL (253-463)
[2022-05-06 19:57] LABS: D-Dimer Test 0.94 *mcg/mL (0.27-0.43)
[2022-05-06 19:58] LABS: Magnesium 1.8 mg/dL (1.6-2.6)
[2022-05-06] MEDS ORDERED: Pantoprazole 80 MG, Admixture Fee 1 EACH in Sodium Chloride 0.9% 100 ML IVPB SCH (21:00)
[2022-05-06 21:08] LABS: INR-International Normal Ratio 1.1; Prothrombin Time 14.2 sec (12.0-14.7)
[2022-05-06 21:09] LABS: PTT 32.6 sec (22.9-36.1)
[2022-05-07 01:24] LABS: SARS-CoV-2 NAA Rapid Test Not Detected (NotDetected)
[2022-05-07 02:08] VITALS: BMI 32.3
[2022-05-07 02:51] LABS: #Basophils 0.1 thou/uL (0.0-0.2); #Eosinphils 0.1 thou/uL (0.0-0.7); #Lymphocytes 2.8 thou/uL (1.20-3.40); #Monocytes 1.3 thou/uL (0.11-0.59); #Neutrophils 7.9 thou/uL (1.40-6.50); %Basophils 0.5 % (0.0-1.0); %Eosinophils 0.7 % (0.0-10.0); %Lymphocytes 22.9 % (21.0-51.0); %Monocytes 10.5 % (0.0-10.0); %Neutrophils 65.5 % (42.0-75.0); Hemoglobin 11.1 g/dL (14.0-18.0); Mean Corpuscular HGB CONC 32.1 g/dL (32.0-36.0); Mean Corpuscular Hemoglobin 28.5 pg (27.0-31.0); Mean Corpuscular Volume 88.8 fl (78.0-98.0); Mean Platelet Volume 7.1 fL (7.4-10.4); Platelet Count 376 10x3/uL (130-400); RBC Distribution Width 16.1 % (11.5-14.5); White Blood Cell (WBC) Count 12.1 10x3/uL (4.8-10.8)
[2022-05-07 03:18] LABS: AST (SGOT) 28 U/L (5-34); Albumin 2.8 g/dL (3.5-5.0); Alkaline Phosphatase 63 U/L (40-110); Anion Gap 9 mmol/L (10-20); BUN (Urea Nitrogen) 5 mg/dL (8.9-20.6); Bilirubin, Direct 0.4 mg/dL (0.1-0.3); Calc. Creatinine Clearance 197 mL/min (70-130); Calcium 7.6 mg/dL (7.8-10.44); Carbon Dioxide 21 mmol/L (22-29); Chloride 111 mmol/L (98-107); Estimated GFR 130; Glucose 89 mg/dL (70-105); Magnesium 1.7 mg/dL (1.6-2.6); Potassium 2.9 mmol/L (3.5-5.1); Sodium 138 mmol/L (136-145)
[2022-05-07 03:25] LABS: ALT (SGPT) 54 U/L (8-55)
[2022-05-07] MEDS: Sodium Chloride 0.9% 1,000 ML IV SCH ×2 (04:19→05:15)
[2022-05-07] MEDS ORDERED: Magnesium 2 GM/50 ML(in water) 2 GM in Premix Bag 1 BAG IVPB SCH (05:15)
[2022-05-07] MEDS: Potassium Chloride 20 MEQ in Premix Bag 1 BAG IVPB SCH ×2 (06:28→09:02)
[2022-05-07] MEDS ORDERED: NS 0.9% w/ 40 MEQ KCL 1,000 ML IV SCH (07:00)
[2022-05-07] MEDS ORDERED: Electrolyte Replacement Protocol 1 EACH FS SCH (07:00)
[2022-05-07] MEDS: Morphine 2 MG/ML VIAL SLOW IVP PRN ×2 (09:28→22:58)
[2022-05-07 10:04] LABS: Hemoglobin 11.9 g/dL (14.0-18.0)
[2022-05-07 10:19] LABS: Anion Gap 10 mmol/L (10-20); BUN (Urea Nitrogen) 4 mg/dL (8.9-20.6); Calc. Creatinine Clearance 177 mL/min (70-130); Calcium 8.1 mg/dL (7.8-10.44); Carbon Dioxide 22 mmol/L (22-29); Chloride 111 mmol/L (98-107); Estimated GFR 125; Glucose 93 mg/dL (70-105); Potassium 3.6 mmol/L (3.5-5.1); Sodium 139 mmol/L (136-145)
[2022-05-07 13:01] LABS: Anion Gap 13 mmol/L (10-20); BUN (Urea Nitrogen) 4 mg/dL (8.9-20.6); Calc. Creatinine Clearance 187 mL/min (70-130); Carbon Dioxide 18 mmol/L (22-29); Chloride 111 mmol/L (98-107); Estimated GFR 127; Glucose 87 mg/dL (70-105); Potassium 3.6 mmol/L (3.5-5.1); Sodium 138 mmol/L (136-145)
[2022-05-07] MEDS ORDERED: PROPOFOL 200 MG/20 ML VIAL ONE (13:02)
[2022-05-07] MEDS ORDERED: Lidocaine 1% PF 5 ML VIAL ONE (13:02)
[2022-05-07] MEDS ORDERED: Promethazine HCl 25 MG/ML VIAL IM PRN (13:55)
[2022-05-07] MEDS ORDERED: Ondansetron HCl/PF 4 MG in Sodium Chloride 0.9% 50 ML IVPB PRN (13:55)
[2022-05-07] MEDS: Pantoprazole 40 MG VIAL IVP SCH (20:32)
[2022-05-07] MEDS: AcetaZOLAMIDE ER 500 MG CAP PO SCH (20:32)
[2022-05-07] MEDS: lamoTRIgine 100 MG TAB PO SCH (20:32)
[2022-05-07 21:21] LABS: Hemoglobin 11.8 g/dL (14.0-18.0)
[2022-05-08 05:19] LABS: Anion Gap 9 mmol/L (10-20); BUN (Urea Nitrogen) Less than 4 mg/dL (8.9-20.6); Calc. Creatinine Clearance 189 mL/min (70-130); Calcium 8.2 mg/dL (7.8-10.44); Carbon Dioxide 21 mmol/L (22-29); Chloride 110 mmol/L (98-107); Estimated GFR 128; Glucose 86 mg/dL (70-105); Magnesium 2.2 mg/dL (1.6-2.6); Potassium 3.7 mmol/L (3.5-5.1); Sodium 136 mmol/L (136-145)
[2022-05-08] MEDS ORDERED: FLUoxetine HCl 20 MG CAP PO SCH (09:00)
[2022-05-08] MEDS: AcetaZOLAMIDE ER 500 MG CAP PO SCH (09:05)
[2022-05-08] MEDS: Pantoprazole 40 MG VIAL IVP SCH (09:06)
[2022-05-08] MEDS: lamoTRIgine 100 MG TAB PO SCH (09:06)
[2022-05-08] MEDS ORDERED: Diazepam 5 MG TAB PO SCH (10:00)
[2022-05-08 17:09] VITALS: BP 117/69; TEMP 98.3
[2022-05-09] MEDS ORDERED: Hydrochlorothiazide 25 MG TAB PO SCH (09:00)
== END 2022-05-08 17:24 | DRG 369 ==
LOC: EEVIPCON 17:25 → ERS 17:25 → 2SW 23:34
PROVIDERS: ADMIT Internal Medicine; ATTEND Nurse Practitioner Family
PROC: 0DJ08ZZ Inspection of Upper Intestinal Tract, Via Natural or Artificial Opening Endoscopic (ICD-10-PCS; principal; 2022-05-07)
DX: K21.01 Gastro-esophageal reflux disease with esophagitis, with bleeding (principal); D62 Acute posthemorrhagic anemia; Z20.822 Contact with and (suspected) exposure to COVID-19; E87.6 Hypokalemia; D72.829 Elevated white blood cell count, unspecified; G93.2 Benign intracranial hypertension; F41.9 Anxiety disorder, unspecified; F43.10 Post-traumatic stress disorder, unspecified; K21.9 Gastro-esophageal reflux disease without esophagitis; Z87.442 Personal history of urinary calculi; Z88.1 Allergy status to other antibiotic agents; Z91.030 Bee allergy status; Z79.899 Other long term (current) drug therapy; Z90.89 Acquired absence of other organs
CPT/HCPCS: 36415; 70553; 71045; 71260; 74177; 80048; 80053; 80076; 81003; 81015; 83605; 83690; 83735; 84484; 85025; 85379; 85384; 85610; 85730; 86850; 86900; 86901; 87086; 93005; 96374; 96375; 96376; C9113; J2270; J2272; J2405; J2704; J3475; J3480; J3490; J7050; Q9967; U0002

== ENCOUNTER 2022-05-29 15:36 | Inpatient (IN) | payer OTHER ==
[2022-05-29 17:03] LABS: #Basophils 0.1 thou/uL (0.0-0.2); #Lymphocytes 1.6 thou/uL (1.20-3.40); #Monocytes 1.6 thou/uL (0.11-0.59); #Neutrophils 16.2 thou/uL (1.40-6.50); %Basophils 0.3 % (0.0-1.0); %Eosinophils 0.1 % (0.0-10.0); %Lymphocytes 8.1 % (21.0-51.0); %Monocytes 8.3 % (0.0-10.0); %Neutrophils 83.3 % (42.0-75.0); Hemoglobin 12.4 g/dL (14.0-18.0); Mean Corpuscular Hemoglobin 26.6 pg (27.0-31.0); Mean Platelet Volume 8.6 fL (7.4-10.4); Platelet Count 310 10x3/uL (130-400); RBC Distribution Width 16.8 % (11.5-14.5); Red Blood Cell (RBC) Count 4.68 mill/uL (4.70-6.10); White Blood Cell (WBC) Count 19.5 10x3/uL (4.8-10.8)
[2022-05-29] MEDS ORDERED: cefTRIAXone\\ROCEPHIN 1 GM VIAL ONE (17:08)
[2022-05-29 17:24] LABS: ALT (SGPT) 26 U/L (8-55); AST (SGOT) 14 U/L (5-34); Albumin 4.2 g/dL (3.5-5.0); Alkaline Phosphatase 89 U/L (40-110); Anion Gap 15 mmol/L (10-20); BUN (Urea Nitrogen) 18 mg/dL (8.9-20.6); Bilirubin, Total 1.5 mg/dL (0.2-1.2); CK (CPK) 23 U/L (30-200); Calc. Creatinine Clearance 0 mL/min (70-130); Calcium 9.3 mg/dL (7.8-10.44); Carbon Dioxide 21 mmol/L (22-29); Chloride 103 mmol/L (98-107); Estimated GFR 78; Globulin 2.7 g/dL (2.4-3.5); Glucose 110 mg/dL (70-105); Lipase 9 U/L (8-78); Potassium 3.1 mmol/L (3.5-5.1); Protein, Total 6.9 g/dL (6.0-8.3); Sodium 136 mmol/L (136-145)
[2022-05-29 17:43] LABS: Bacteria/HPF None Seen HPF (None Seen); Bilirubin Negative (Negative); Blood, Urine Negative (Negative); Clarity Clear (Clear); Glucose, Urine (Dipstick) Normal (Negative); Ketone, Urine Negative (Negative); Leukocyte 75 Leu/uL (Negative); Nitrite Negative (Negative); Protein, Urine (Dipstick) Negative (Neg-Trace); RBC/HPF 0-3 HPF (0-3); Specific Gravity, Urine 1.008 (1.002-1.036); Squamous Epithelial 0-3 HPF (0-3); Urobilinogen Normal mg/dL (Less than 2)
[2022-05-29 17:50] LABS: Amphetamine Not Detected (NotDetected); Barbiturates Screen Not Detected (NotDetected); Benzodiazepine Screen Detected (NotDetected); Cocaine Metabolite Screen Not Detected (NotDetected); Methadone Not Detected (NotDetected); Methamphetamine Not Detected (NotDetected); Opiate Screen Not Detected (NotDetected); Oxycodone Screen Not Detected (NotDetected); Phencyclidine (PCP) Not Detected (NotDetected); THC/Cannabinoid Screen Not Detected (NotDetected); Tricyclic Screen Not Detected (NotDetected)
[2022-05-29 17:54] LABS: Acetaminophen Less than 10.0 mcg/mL (10.0-30.0); Alcohol Less than 10 mg/dL (Less than 10); Salicylate Less than 8.0 mg/dL (15.0-30.0)
[2022-05-29 18:10] LABS: SARS-CoV-2 NAA Rapid Test Not Detected (NotDetected)
[2022-05-29] MEDS ORDERED: Vancomycin 1 GM/200 ML (FROZEN) BAG ONE (18:24)
[2022-05-29] MEDS ORDERED: Cefepime 2 GM VIAL ONE (18:24)
[2022-05-29] MEDS ORDERED: Acetaminophen 325 MG TAB PO PRN (18:47)
[2022-05-29] MEDS ORDERED: Ondansetron ODT 4 MG TAB PO PRN (18:47)
[2022-05-29] MEDS ORDERED: Ondansetron PF 4 MG/2 ML Vial IVP PRN (18:47)
[2022-05-29 19:07] LABS: Magnesium 2.2 mg/dL (1.6-2.6)
[2022-05-29] MEDS ORDERED: Potassium Chloride 20 MEQ TAB PO SCH (19:15)
[2022-05-29] MEDS ORDERED: Pantoprazole 40 MG VIAL IVP SCH (20:00)
[2022-05-29] MEDS ORDERED: Meclizine HCl 12.5 MG TAB PO PRN (20:05)
[2022-05-29] MEDS ORDERED: Ciprofloxacin 0.2% Otic (0.25ML CONTAINER) EA EAR SCH (21:00)
[2022-05-29 21:05] LABS: Hemoglobin A1c 5.1 % (4.0-6.0)
[2022-05-29 21:08] VITALS: BMI 26.9
[2022-05-29] MEDS ORDERED: Vancomycin HCl 750 MG in Sodium Chloride 0.9% 250 ML 250 ML IVPB SCH (21:15)
[2022-05-29] MEDS ORDERED: AcetaZOLAMIDE ER 500 MG CAP PO SCH (21:30)
[2022-05-29] MEDS ORDERED: lamoTRIgine 100 MG TAB PO SCH (21:30)
[2022-05-29] MEDS: Pantoprazole 40 MG VIAL IVP SCH (21:41)
[2022-05-29] MEDS: Sodium Chloride 0.9% 1,000 ML IV SCH (21:57)
[2022-05-30] MEDS: Sodium Chloride 0.9% 1,000 ML IV SCH ×2 (03:38→13:56)
[2022-05-30 05:09] LABS: #Basophils 0.1 thou/uL (0.0-0.2); #Eosinphils 0.1 thou/uL (0.0-0.7); #Lymphocytes 1.9 thou/uL (1.20-3.40); #Monocytes 1.4 thou/uL (0.11-0.59); #Neutrophils 10.3 thou/uL (1.40-6.50); %Basophils 0.4 % (0.0-1.0); %Eosinophils 0.4 % (0.0-10.0); %Lymphocytes 13.9 % (21.0-51.0); %Neutrophils 75.3 % (42.0-75.0); Hemoglobin 11.5 g/dL (14.0-18.0); Mean Corpuscular HGB CONC 32.3 g/dL (32.0-36.0); Mean Corpuscular Hemoglobin 27.1 pg (27.0-31.0); Mean Corpuscular Volume 83.9 fl (78.0-98.0); Mean Platelet Volume 8.6 fL (7.4-10.4); Platelet Count 291 10x3/uL (130-400); RBC Distribution Width 16.5 % (11.5-14.5); Red Blood Cell (RBC) Count 4.26 mill/uL (4.70-6.10); White Blood Cell (WBC) Count 13.7 10x3/uL (4.8-10.8)
[2022-05-30 05:31] LABS: ALT (SGPT) 16 U/L (8-55); AST (SGOT) 10 U/L (5-34); Albumin 3.3 g/dL (3.5-5.0); Alkaline Phosphatase 73 U/L (40-110); Anion Gap 10 mmol/L (10-20); BUN (Urea Nitrogen) 10 mg/dL (8.9-20.6); Bilirubin, Total 0.8 mg/dL (0.2-1.2); Calc. Creatinine Clearance 131 mL/min (70-130); Calcium 7.9 mg/dL (7.8-10.44); Carbon Dioxide 19 mmol/L (22-29); Chloride 114 mmol/L (98-107); Estimated GFR 121; Globulin 2.5 g/dL (2.4-3.5); Glucose 99 mg/dL (70-105); Potassium 2.7 mmol/L (3.5-5.1); Protein, Total 5.8 g/dL (6.0-8.3); Sodium 140 mmol/L (136-145)
[2022-05-30] MEDS ORDERED: Cefepime 1 GM in Sodium Chloride 0.9% 100 ML IVPB SCH (06:00)
[2022-05-30] MEDS ORDERED: Potassium Chloride 20 MEQ TAB PO SCH (08:00)
[2022-05-30] MEDS ORDERED: Potassium Chloride 20 MEQ in Premix Bag 1 BAG IVPB SCH (08:00)
[2022-05-30] MEDS: FLUoxetine HCl 20 MG CAP PO SCH (09:02)
[2022-05-30] MEDS: AcetaZOLAMIDE ER 500 MG CAP PO SCH ×2 (09:02→20:59)
[2022-05-30] MEDS: lamoTRIgine 100 MG TAB PO SCH ×2 (09:03→20:59)
[2022-05-30] MEDS: Pantoprazole 40 MG VIAL IVP SCH ×2 (09:03→21:01)
[2022-05-30] MEDS: Vancomycin 1 GM in Premix Bag 1 BAG IVPB SCH ×2 (09:17→21:01)
[2022-05-30] MEDS ORDERED: traZODone HCl 50 MG TAB PO PRN (12:22)
[2022-05-30] MEDS ORDERED: Fluticasone Propionate Nasal Spray 16 gm Bottle NASAL SCH (12:30)
[2022-05-30] MEDS ORDERED: Electrolyte Replacement Protocol 1 EACH FS SCH (16:45)
[2022-05-30 17:22] LABS: Anion Gap 9 mmol/L (10-20); BUN (Urea Nitrogen) 8 mg/dL (8.9-20.6); Calc. Creatinine Clearance 150 mL/min (70-130); Calcium 7.9 mg/dL (7.8-10.44); Carbon Dioxide 16 mmol/L (22-29); Chloride 117 mmol/L (98-107); Estimated GFR 126; Glucose 102 mg/dL (70-105); Potassium 3.1 mmol/L (3.5-5.1); Sodium 139 mmol/L (136-145)
[2022-05-30] MEDS: Cefepime 2 GM in Sodium Chloride 0.9% 100 ML IVPB SCH (17:33)
[2022-05-30] MEDS: NEOMYCIN-POLYMYXIN-HC EAR SUSP 200 DROP/10 ML BOT EA EAR SCH (21:00)
[2022-05-31] MEDS: Sodium Chloride 0.9% 1,000 ML IV SCH ×2 (00:09→08:52)
[2022-05-31] MEDS: Cefepime 2 GM in Sodium Chloride 0.9% 100 ML IVPB SCH (05:01)
[2022-05-31 05:12] LABS: #Eosinphils 0.1 thou/uL (0.0-0.7); #Lymphocytes 2.6 thou/uL (1.20-3.40); #Monocytes 1.4 thou/uL (0.11-0.59); #Neutrophils 7.8 thou/uL (1.40-6.50); %Basophils 0.4 % (0.0-1.0); %Eosinophils 1.1 % (0.0-10.0); %Lymphocytes 21.8 % (21.0-51.0); %Monocytes 11.4 % (0.0-10.0); %Neutrophils 65.3 % (42.0-75.0); Hemoglobin 10.7 g/dL (14.0-18.0); Mean Corpuscular HGB CONC 31.4 g/dL (32.0-36.0); Mean Corpuscular Hemoglobin 27.1 pg (27.0-31.0); Mean Corpuscular Volume 86.2 fl (78.0-98.0); Mean Platelet Volume 8.7 fL (7.4-10.4); Platelet Count 270 10x3/uL (130-400); RBC Distribution Width 16.6 % (11.5-14.5); Red Blood Cell (RBC) Count 3.96 mill/uL (4.70-6.10)
[2022-05-31 05:37] LABS: Anion Gap 9 mmol/L (10-20); BUN (Urea Nitrogen) 7 mg/dL (8.9-20.6); Calc. Creatinine Clearance 136 mL/min (70-130); Calcium 7.9 mg/dL (7.8-10.44); Carbon Dioxide 15 mmol/L (22-29); Chloride 119 mmol/L (98-107); Estimated GFR 122; Glucose 95 mg/dL (70-105); Magnesium 2.1 mg/dL (1.6-2.6); Potassium 3.3 mmol/L (3.5-5.1); Sodium 140 mmol/L (136-145)
[2022-05-31] MEDS ORDERED: Potassium Bicarbonate/Cit Ac 20 MEQ TAB PO SCH (08:00)
[2022-05-31 08:37] LABS: Vancomycin, Trough 13.1 ug/mL
[2022-05-31] MEDS ORDERED: Potassium Chloride 20 MEQ TAB PO SCH (08:45)
[2022-05-31] MEDS: AcetaZOLAMIDE ER 500 MG CAP PO SCH (08:53)
[2022-05-31] MEDS: FLUoxetine HCl 20 MG CAP PO SCH (08:54)
[2022-05-31] MEDS: lamoTRIgine 100 MG TAB PO SCH (08:55)
[2022-05-31] MEDS: NEOMYCIN-POLYMYXIN-HC EAR SUSP 200 DROP/10 ML BOT EA EAR SCH (08:56)
[2022-05-31] MEDS: Pantoprazole 40 MG VIAL IVP SCH (08:57)
[2022-05-31] MEDS ORDERED: Fluticasone Propionate Nasal Spray 16 gm Bottle NASAL SCH (09:00)
[2022-05-31 13:09] VITALS: BP 94/51; TEMP 97.9
== END 2022-05-31 16:08 | DRG 872 ==
LOC: EEVIPCON 15:36 → ERS 15:36 → 2SW 18:31
PROVIDERS: ADMIT Internal Medicine; ATTEND Internal Medicine
DX: A41.9 Sepsis, unspecified organism (principal); Z20.822 Contact with and (suspected) exposure to COVID-19; F31.9 Bipolar disorder, unspecified; F95.2 Tourette's disorder; F90.9 Attention-deficit hyperactivity disorder, unspecified type; K21.9 Gastro-esophageal reflux disease without esophagitis; H66.92 Otitis media, unspecified, left ear; E87.6 Hypokalemia; G93.2 Benign intracranial hypertension; F17.210 Nicotine dependence, cigarettes, uncomplicated; F41.9 Anxiety disorder, unspecified; H60.92 Unspecified otitis externa, left ear; E86.0 Dehydration; Z88.1 Allergy status to other antibiotic agents; Z91.030 Bee allergy status; Z90.09 Acquired absence of other part of head and neck; Z79.899 Other long term (current) drug therapy
CPT/HCPCS: 36415; 70450; 71045; 80048; 80053; 80202; 80306; 80307; 81003; 81015; 82010; 82550; 83036; 83605; 83690; 83735; 83880; 84145; 84443; 84484; 85025; 87040; 93005; 93306; C9113; J0692; J0696; J3370; J3370-JW; J3480; J3490; J7050